=== PATIENT | female | born 1945 | race Caucasian/White ===

== ENCOUNTER → 2019-09-12 13:00 | Outpatient (BNVA) | payer MEDICARE, MEDICAID, SELFPAY | PROVIDERS: Family Provider Family Medicine; PCP Nurse Practitioner Family; Visit Provider Specialist | DX: R41.9 Unspecified symptoms and signs involving cognitive functions and awareness (principal) | CPT/HCPCS: 96116; 99203 ==

== ENCOUNTER → 2019-09-27 13:07 | Outpatient (BNVA) | payer MEDICARE, MEDICAID, SELFPAY | PROVIDERS: Family Provider Family Medicine; PCP Nurse Practitioner Family; Visit Provider Nurse Practitioner | DX: R05 Cough (principal) | CPT/HCPCS: 87804 ==

== ENCOUNTER 2020-02-28 08:11 | Day surgery (SDC) | payer MEDICARE, MEDICAID, SELFPAY ==
[2020-02-27 11:48] VITALS: BMI 31.1
[2020-02-28 08:30] VITALS: BP 145/71; PULSE 70; RESP 20; TEMP 36.5; O2SAT 99
[2020-02-28] MEDS: sodium chloride 0.9% 1,000 ML 30 ML IV (08:53)
--- NOTE | 2020-02-28 09:11 | ANES.PREANE2 ---
Pre-Anesthetic Assessment Pre-Anesthetic Assessment: Height/Weight: Height 1.6 m Weight 79.832 kg Temp Pulse Resp BP Pulse Ox 97.7 F 70 20 H 145/71 99 02/28/20 08:30 02/28/20 08:30 02/28/20 08:30 02/28/20 08:30 02/28/20 08:30 Preop Diagnosis: Screening Proposed Procedure: Operation Date: 02/28/20 09:30 Proposed Procedures p Colonoscopy 98284 Z12.11(Not Applicable) - Adriano Smith MD Familial anesthetic complications: None Was Beta Tia taken within 24 hours: N/A Last intake: Intake Last Liquid Date 02/28/20 Last Liquid Time 07:00 Last Solid Date 02/26/20 Last Solid Time 21:00 Social: Social History: No alcohol and No tobacco Comment: former smoker Exam: Pre-Anes Outpt Exam: alert, oriented x 3, clear to auscultation bilaterally and regular rate & rhythm Airway: Cervical ROM: WNL MP: 3 Dentition: Other (edentulous) Pulmonary: Pulmonary: 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), Orthopnea and SOB CV/HEM: CV/HEM: Afib and HTN Comments: pacer/defibrillator apixaban on thursday : : None reported Hepatic: Hepatic: None reported GI: GI: GERD Metabolic: Metabolic: None reported Musc/skel: Musc/skel: None reported Neuropsych: Neuropsych: None reported Anesthetic Plan: ASA status: 3 Anesthesia: MAC Other: POM mask Risk of > 500 ml blood loss (7ml/kg in children): No Meds/Allergies Current Medications: Current Medications Generic Name Dose Route Start Last Admin Trade Name Freq PRN Reason Stop Dose Admin Sodium Chloride 1,000 mls @ 30 ml s/hr 02/28/20 08:30 02/28/20 08:53 Sodium Chloride 0.9% IV 02/29/20 08:29 30 mls/hr .Q24H GERALDINE Administration PFSH Anesthesia PFSH: Medical History Anxiety Arthritis Atrial fibrillation Chronic anticoagulation COPD (chronic obstructive pulmonary disease) Depression History of pacemaker Hypertension AIDEN (obstructive sleep apnea) Restless leg syndrome Surgical History H/O cardiac radiofrequency ablation H/O: hysterectomy History of tonsillectomy Hx laparoscopic cholecystectomy Family History Other CAD (coronary artery disease) Cancer Diabetes Hypertension Stroke Denies family history of Anesthesia complication Bleeding disorder Social History Smoking and tobacco status: former smoker Quit status (tobacco): has quit using tobacco Year quit tobacco: 1979 Alcohol intake: never Lives independently: Yes Marital status: Single Current occupational status: retired History of recent travel: No Data Anesthesia Cardiac Studies: No Data to Display
--- NOTE | 2020-02-28 09:55 | W.PM.OPSUD ---
Surgery/Procedure H&P Update DATE OF PROCEDURE: February 28, 2020 DATE H&P PERFORMED: 02/20/20 H&P UPDATE INFORMATION: I have reviewed H&P completed within last 30 days, I have examined patient prior to procedure and No changes to prior documentation PREOP DIAGNOSIS: Screening PLANNED PROCEDURE: Operation Date: 02/28/20 09:30 Proposed Procedures p Colonoscopy 37976 Z12.11(Not Applicable) - Adriano Smith MD
[2020-02-28 10:25] VITALS: BP 142/82; PULSE 71; RESP 18; TEMP 36.6; O2SAT 99
[2020-02-28 10:33] VITALS: BP 124/60; PULSE 70; RESP 18; TEMP 36.6; O2SAT 99
== END 2020-02-28 10:54 | disposition home or self-care (01) ==
PROVIDERS: PCP Family Medicine; Visit Provider Surgery
PROC: 0DJD8ZZ Inspection of Lower Intestinal Tract, Via Natural or Artificial Opening Endoscopic (ICD-10-PCS; CPT 45378; principal; 2020-02-28 09:30)
DX: Z12.11 Encounter for screening for malignant neoplasm of colon (principal); K57.30 Diverticulosis of large intestine without perforation or abscess without bleeding; K64.8 Other hemorrhoids; J44.9 Chronic obstructive pulmonary disease, unspecified; Z99.81 Dependence on supplemental oxygen; I48.91 Unspecified atrial fibrillation; I10 Essential (primary) hypertension; K21.9 Gastro-esophageal reflux disease without esophagitis; F41.9 Anxiety disorder, unspecified; M19.90 Unspecified osteoarthritis, unspecified site; G47.33 Obstructive sleep apnea (adult) (pediatric); Z82.49 Family history of ischemic heart disease and other diseases of the circulatory system; Z83.3 Family history of diabetes mellitus; Z87.891 Personal history of nicotine dependence
CPT/HCPCS: 12345; G0121; J7030

== ENCOUNTER → 2020-05-07 11:37 | Outpatient (BNVA) | payer MEDICARE, MEDICAID, SELFPAY | PROVIDERS: PCP Nurse Practitioner Family; Visit Provider Internal Medicine Cardiovascular Disease | DX: N18.9 Chronic kidney disease, unspecified (principal); E78.5 Hyperlipidemia, unspecified; Z79.899 Other long term (current) drug therapy; I42.8 Other cardiomyopathies; R06.02 Shortness of breath; I48.20 Chronic atrial fibrillation, unspecified; Z95.810 Presence of automatic (implantable) cardiac defibrillator; I10 Essential (primary) hypertension | CPT/HCPCS: 80048; 80061; 80076; 84439; 84443 ==

== ENCOUNTER 2021-05-09 11:28 | Emergency (ER) | payer MEDICARE, MEDICAID, SELFPAY ==
--- NOTE | 2021-05-09 11:34 | XR_ITS ---
WS: [id number] Exam: XR chest 1V portable [id number] Date/Time of Exam: 05/09/2021 11:36 AM Reason For Exam: chest pain Comparison 04/22/2019. The lungs are fully expanded and clear. Cardiomediastinal structures are unremarkable for portable te chnique. No pleural effusions. A permanent cardiac pacer superimposes the left chest. Regional bony e lements are intact. XR/XR chest 1V portable [id number] IMPRESSION: 1. No acute cardiopulmonary finding. No change.
[2021-05-09 11:38] VITALS: BP 132/70; PULSE 68; RESP 19; TEMP 37.2; O2SAT 94; BMI 29.2
--- NOTE | 2021-05-09 11:52 | W.ED.GENADLT ---
HPI - General Adult General: Chief complaint: General Medical Stated complaint: CHEST PAINS Time Seen by Provider: 05/09/21 11:46 History of Present Illness: HPI narrative: Patient is a 75-year-old female with class II systolic congestive heart failure. She has a dual-chamber ICD and is followed by a local credit collections manager. She is here with complaints central chest pressure for the last 2 to 3 days. She is also had increased shortness of breath and leg swelling which she has been treating by increased dose of of her diuretics. Pain waxes and wanes in intensity is not correlated to movement does not radiate has not had any diaphoresis or nausea. This morning she did have a sensation like something kicked her in the middle of her chest. She has not previously had an ICD fire on her before. Has had a mild cough the last 2 days. No fevers chills nausea vomiting diarrhea altered mental status rash syncope or headache States she is able to perform her ADLs at home. Does not cook but has somebody cooks for her is able to get go the bathroom eat they have otherwise perform basic ADLs does have home health and family helping her Review of Systems General: Reports: 10 or more systems reviewed and unremarkable except in HPI and below PFSH ED PFSH: Medical History Anxiety Arthritis Atrial fibrillation Chronic anticoagulation Chronic atrial fibrillation COPD (chronic obstructive pulmonary disease) Depression High risk medication use History of pacemaker Hypertension Hypertension, benign essential, age 0-18 ICD (implantable cardioverter-defibrillator), dual, in situ Non-ischemic cardiomyopathy AIDEN (obstructive sleep apnea) Restless leg syndrome Surgical History H/O cardiac radiofrequency ablation H/O: hysterectomy History of tonsillectomy Hx laparoscopic cholecystectomy Status post colonoscopy (02/28/20) diverticulosis Family History Mother CAD (coronary artery disease) Stroke Father CAD (coronary artery disease) Grandmother CAD (coronary artery disease) Cancer Grandfather CAD (coronary artery disease) Brother CAD (coronary artery disease) Sister CAD (coronary artery disease) Daughter CAD (coronary artery disease) Diabetes Cancer Son Diabetes Other Hypertension Denies family history of Clotting disorder Dementia Chronic kidney disease (CKD) Suicide Anesthesia complication Bleeding disorder Lung disease Social History Smoking and tobacco status: former smoker Quit status (tobacco): has quit using tobacco Year quit tobacco: 1979 Alcohol intake: never Lives independently: Yes Marital status: Single Current occupational status: retired History of recent travel: No Physical Exam Const: COMMON NORMALS: no acute distress, average body habitus, patient oriented x3, no limitations, healthy appearing, alert and well nourished ORIENTATION/CONSCIOUSNESS: Yes oriented to person, Yes oriented to place and Yes oriented to time HENMT: COMMON NORMALS: normocephalic, atraumatic, hearing grossly normal bilaterally, external ears normal, EAC's normal, Normal external nose present, Normal nasal mucous membranes and turbinates present, moist oral mucous membranes, oropharynx normal, dentition normal and gingiva normal HEAD & SCALP: normocephalic and atraumatic NOSE: Normal external nose present and Normal nasal mucous membranes and turbinates present EXTERNAL EAR: Yes external ears normal EXTERNAL AUDITORY CANAL: EAC's normal Eye: COMMON NORMALS: Equal, round and reactive pupils present and EOMs intact bilaterally PUPIL: Yes Equal, round and reactive pupils present Neck/C-Spine: COMMON NORMALS: no meningeal signs and no JVD Chest: COMMONS NORMALS: normal inspection of the chest and normal palpation of entire chest wall Resp: COMMON NORMALS: normal respiratory effort, No retractions and clear to auscultation bilaterally AUSCULTATION: clear to auscultation bilaterally Cardio: COMMON NORMALS: no JVD, regular rate, regular rhythm, No murmurs present (Cardio) and Peripheral pulses 2+ throughout RATE: regular rate RHYTHM: regular rhythm PERIPHERAL PULSES: Peripheral pulses 2+ throughout GI: COMMON NORMALS: Normal to inspection, nondistended, normoactive bowel sounds present, Soft to palpation and non-tender INSPECTION: Yes normal to inspection AUSCULTATION: Yes normoactive bowel sounds PALPATION: Yes Soft to palpation Extremity: COMMON NORMALS: normal to inspection, full ROM, capillary refill normal and no pedal edema (1+ pedal edema bilaterally lower extremities) Neuro: COMMON NORMALS: patient oriented x3 and CN's II-XII intact bilaterally SENSORIUM/ORIENTATION: Yes alert, Yes oriented to person, Yes oriented to place and Yes oriented to time MENINGEAL SIGNS: Yes no meningeal signs Psych: COMMON NORMALS: mental status grossly normal and Normal thought process present THOUGHT PROCESS: Normal thought process present Skin: COMMON NORMALS: no rashes or lesions noted, no wounds, turgor normal and no jaundice GENERAL SKIN EXAM: no rashes or lesions noted and turgor normal Course ED course: Patient symptoms are currently very mild. States she only has some mild chest tenderness. EKG did not show any new changes based on comparison to April 2019. Patient is currently stable paced rhythm no need for resuscitation or Transformation Analyst activation at this time Vital Signs: Vital signs: Vital Signs Temperature 98.2 F 05/09/21 13:48 Pulse Rate 72 05/09/21 14:40 Respiratory Rate 20 H 05/09/21 14:40 Blood Pressure 118/54 05/09/21 14:40 Pulse Oximetry 96 05/09/21 14:40 MDM - General Adult MDM Narrative: Medical decision making narrative: Patient is a 75-year-old female with congestive heart failure. 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 Symptoms are mild she has not had any arrhythmias or other concerns about ICD firing. Spoke to her credit collections manager recommend interrogating ICD. If she did have a run of VT increasing her amiodarone to 400mg otherwise keeping. He did agree with keeping her in observation if there is any episodes of shock or ventricular tachyarrhythmia Patient's ICD does not show any arrhythmias or shocks. Initial troponin was 13 so we will need to get a 2-hour delta on her 2-hour troponin did not change. She continues to be essentially asymptomatic. She was very relieved to know that her ICU not fired and her labs were okay. She has very good follow-up with her credit collections manager she is asking to be discharged I think this is appropriate. Symptoms of resolved does not appear to be any change in cardiac labs EKG is unchanged do not think necessarily anything that we would add with an observation stay. I believe she is appropriate for discharge at this time Differential Diagnosis: Differential Diagnosis: ACS, congestive heart failure exacerbation, ICD firing, arrhythmia Lab Data: Labs: Lab Results 05/09/21 05/09/21 05/09/21 12:00 12:00 12:00 WBC 7.3 10^3/uL 10^3/ uL (4.0-10.0) RBC 4.24 10^6/uL 10^6 /uL (4.1-5.3) Hgb 14.3 g/dL g/dL (11.5-15.3) Hct 42.9 % % (37.0-47.0) MCV 101.2 fl H fl (81-99) MCH 33.7 pg pg (28.0-34.0) MCHC 33.3 g/dL g/dL (30.0-36.0) RDW 13.4 % % (12.1-15.1) Plt Count 243 10^3/cmm 10^3 /cmm (130-400) MPV 9.3 fL fL (7.4-10.4) Neut % (Auto) 49.5 % % Lymph % (Auto) 36.4 % % Williamson % (Auto) 10.0 % % Eos % (Auto) 2.9 % % Baso % (Auto) 0.8 % % Neut # (Auto) 3.63 10^3/uL 10^3 /uL (1.8-7.7) Lymph # (Auto) 2.7 10^3/uL 10^3/ uL (0.8-4.8) Williamson # (Auto) 0.7 10^3/uL 10^3/ uL (0.2-0.9) Eos # (Auto) 0.2 10^3/uL 10^3/ uL (0.0-0.8) Baso # (Auto) 0.1 10^3/uL 10^3/ uL (0.0-0.1) Nucleated RBC % (a uto) 0 % % Nucleated RBCs # 0.0 /100WBC /100W BC Sodium Cancelled Potassium Cancelled Chloride Cancelled Carbon Dioxide Cancelled Anion Gap Cancelled BUN Cancelled Creatinine Cancelled GFR Calculation Cancelled Glucose Cancelled Calculated Osmolal ity Cancelled Calcium Cancelled Total Bilirubin Cancelled AST Cancelled ALT Cancelled Alkaline Phosphata se Cancelled Troponin T Baselin e Cancelled Troponin T 120 Min [place] Delta Troponin T NT-Pro-B Natriuret Pep Cancelled Total Protein Cancelled Albumin Cancelled Globulin Cancelled TSH Cancelled 05/09/21 05/09/2121 12:58 12:58 15:14 WBC RBC Hgb Hct MCV MCH MCHC RDW Plt Count MPV Neut % (Auto) Lymph % (Auto) Williamson % (Auto) Eos % (Auto) Baso % (Auto) Neut # (Auto) Lymph # (Auto) Williamson # (Auto) Eos # (Auto) Baso # (Auto) Nucleated RBC % (a uto) Nucleated RBCs # Sodium 139 mmol/L mmol/L (136-145) Potassium 3.6 mmol/L mmol/L (3.5-5.1) Chloride 102 mmol/L mmol/L (98-107) Carbon Dioxide 27 mmol/L mmol/L (22-29) Anion Gap 13.6 (5-19) BUN 14 mg/dL mg/dL (8-23) Creatinine 0.9 mg/dL mg/dL (0.5-0.9) GFR Calculation Not Reportable Glucose 107 mg/dL mg/dL (65-115) Calculated Osmolal ity 289 mOsm/kg mOsm/ kg (285-295) Calcium 9.2 mg/dL mg/dL (8.5-10.5) Total Bilirubin 0.4 mg/dL mg/dL (0.15-1.2) AST 31 U/L U/L (0-32) ALT 21 U/L U/L (0-33) Alkaline Phosphata se 86 IU/L IU/L (35-105) Troponin T Baselin e 13 ng/L H ng/L (0-10) Troponin T 120 Min [place] 12.06 ng/L H ng/L (0-10) Delta Troponin T -0.94 ABS# L ABS# (0-10) NT-Pro-B Natriuret Pep 820 pg/mL H pg/mL (0-125) Total Protein 6.8 g/dL g/dL (6.6-8.7) Albumin 4.0 g/dL g/dL (3.5-5.2) Globulin 2.8 g/dL g/dL (1.3-4.6) TSH EKG Data^: EKG 1: Attestation: I personally reviewed and interpreted this EKG as follows: EKG interpretation date: 05/09/21 EKG interpretation time: 12:19 Prior EKG tracings: available for review Interpretation: Electronic ventricular pacemaker normally paced rhythm rate 70 QRS 177 QTC 517 axis normal no signs of ischemia or infarct. EKG is essentially the same as April and November 2018 Computer generated interpretation: Chest X-Ray 05/09/21 11:34 IMPRESSION: 1. No acute cardiopulmonary finding. No change. Discharge Plan Discharge Patient Disposition: Home Clinical Impression: CHF (congestive heart failure), NYHA class II Qualifiers: Congestive heart failure type: systolic Congestive heart failure chronicity: chronic Qualified Code(s): I50.22 - Chronic systolic (congestive) heart failure Condition: Stable Prescriptions: No Action nitroglycerin 0.4 mg tablet, sublingual 0.4 mg SUBLINGUAL Q5M PRN (Reason: chest pain) 30 Days Qty: 30 RF: 3 Spiriva Respimat 2.5 mcg/actuation mist 2 inh inhalation DAILY@14 RF: 0 diclofenac sodium 1 % gel 2 - 4 g topical BID PRN (Reason: Pain) RF: 0 fluticasone propionate [Flonase Allergy Relief] 50 mcg/actuation spray,suspension 2 spray INTRANASAL QAM RF: 0 gabapentin 400 mg capsule 400 mg PO QID RF: 0 lidocaine 5 % adhesive patch,medicated 1 patch TOPICAL DAILY RF: 0 lovastatin 10 mg tablet 10 mg PO BEDTIME RF: 0 amlodipine [Norvasc] 2.5 mg tablet 2.5 mg PO QAM RF: 0 pantoprazole [Protonix] 40 mg tablet,delayed release (DR/EC) 40 mg PO QAM RF: 0 trazodone 50 mg tablet 50 mg PO BEDTIME RF: 0 tramadol [Ultram] 50 mg tablet 50 mg PO QID PRN (Reason: Pain) RF: 0 hydroxyzine pamoate [Vistaril] 25 mg capsule 25 mg PO Q8H PRN (Reason: Panic Attack(S)) RF: 0 torsemide 10 mg tablet 20 mg PO BID RF: 0 Eliquis 5 mg tablet 5 mg PO BID RF: 0 ropinirole 1 mg tablet 1 mg PO BEDTIME RF: 0 hydrocodone-acetaminophen 5-325 mg tablet 1 tab PO QID PRN (Reason: Pain) RF: 0 Wixela Inhub 500-50 mcg/dose blister with device 1 inh INHALATION BID RF: 0 buspirone 7.5 mg tablet 7.5 mg PO TID RF: 0 montelukast 10 mg tablet 10 mg PO BEDTIME RF: 0 sertraline 50 mg tablet 50 mg PO TID RF: 0 Multivitamins 28 mg iron- 800 mcg Tablet 1 tab PO DAILY RF: 0 melatonin 10 mg Tablet 10 mg PO BEDTIME RF: 0 Vitamin B-12 1 tab PO DAILY RF: 0 amiodarone 200 mg tablet 200 mg PO QAM RF: 0 Discharge Orders: Discharge ED (Routine); Ordered 05/09/21 Ordered By: Kurt Felix Referrals: Ildefonso Javed MD [Primary Care Provider] - Discharge Diet: Advance as tolerated Discharge Activity: Resume usual activity Patient Instructions: Heart Failure (ED), Chest Pain (ED) Coding Level of Care Code 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
[2021-05-09 11:55] VITALS: BP 146/78; PULSE 70; RESP 20; TEMP 36.6; O2SAT 96
[2021-05-09 12:21] VITALS: BP 150/83; PULSE 62; RESP 20; O2SAT 96
[2021-05-09 12:26] LABS: Basophils # 0.1 10^3/uL (0.0-0.1); Basophils % 0.8 %; Eosinophils # 0.2 10^3/uL (0.0-0.8); Eosinophils % 2.9 %; Hematocrit 42.9 % (37.0-47.0); Hemoglobin 14.3 g/dL (11.5-15.3); Lymphocytes # 2.7 10^3/uL (0.8-4.8); Lymphocytes % 36.4 %; Mean Corpuscular HGB Conc 33.3 g/dL (30.0-36.0); Mean Corpuscular Hemoglobin 33.7 pg (28.0-34.0); Mean Corpuscular Volume 101.2 fl (81-99); Mean Platelet Volume 9.3 fL (7.4-10.4); Monocytes # 0.7 10^3/uL (0.2-0.9); Neutrophils # 3.63 10^3/uL (1.8-7.7); Neutrophils % 49.5 %; Nucleated Red Blood Cells % 0 %; Platelet Count 243 10^3/cmm (130-400); Red Blood Count 4.24 10^6/uL (4.1-5.3); Red Cell Distribution Width 13.4 % (12.1-15.1); White Blood Count 7.3 10^3/uL (4.0-10.0)
[2021-05-09 13:48] VITALS: BP 142/47; PULSE 70; RESP 20; TEMP 36.8; O2SAT 96
[2021-05-09 13:53] LABS: Troponin(5th) Baseline 13 ng/L (0-10)
[2021-05-09 14:02] LABS: Alanine Aminotransferase 21 U/L (0-33); Alkaline Phosphatase 86 IU/L (35-105); Anion Gap 13.6 (5-19); Aspartate Amino Transferase 31 U/L (0-32); Blood Urea Nitrogen 14 mg/dL (8-23); Calcium 9.2 mg/dL (8.5-10.5); Carbon Dioxide 27 mmol/L (22-29); Chloride 102 mmol/L (98-107); Globulin 2.8 g/dL (1.3-4.6); Glucose 107 mg/dL (65-115); NT Pro B Type Natriuretic Pept 820 pg/mL (0-125); Osmolality Calculated 289 mOsm/kg (285-295); Potassium 3.6 mmol/L (3.5-5.1); Sodium 139 mmol/L (136-145); Total Bilirubin 0.4 mg/dL (0.15-1.2); Total Protein 6.8 g/dL (6.6-8.7)
[2021-05-09 14:40] VITALS: BP 118/54; PULSE 72; RESP 20; O2SAT 96
[2021-05-09 16:38] LABS: Troponin 5 2HR 12.06 ng/L (0-10); Troponin 5 2HR Delta -0.94 ABS# (0-10)
--- NOTE | 2021-05-09 16:46 | PC.PHAR ---
pt states she takes care of her own medications-rx filled on 05/09/21 90d/s for torsemide 20mg po daily prn-pt states she has been taking 20mg bid-
[2021-05-09 17:14] VITALS: BP 127/69; PULSE 70; RESP 18; TEMP 36.7; O2SAT 96
--- NOTE | 2021-05-09 17:34 | ECG_ITS ---
[facility] Test Date: 2021-05-09 Pat Name: Meryl Baldwin Department: Room: Gender: Female Head Of Housekeeping: : 1945 Requested By: Karla Piper Order Number: [id number] Saritha MD: Gaby Perez M.D. Measurements Intervals [place] Rate: 70 P: NC: QRS: 203 QRSD: 177 T: 53 QT: 497 QTc: 536 Interpretive Statements ELECTRONIC VENTRICULAR PACEMAKER ABNORMAL RHYTHM ECG Compared to ECG 04/22/2019 13:47:57 No significant changes Electronically Signed On 05-10-2021 7:06:44 CDT by Gaby Perez M.D. [id number]
== END 2021-05-09 17:38 | disposition home or self-care (01) ==
PROVIDERS: Physician Assistant; Emergency Provider Family Medicine; PCP Family Medicine
DX: I11.0 Hypertensive heart disease with heart failure (principal); I50.22 Chronic systolic (congestive) heart failure; Z79.01 Long term (current) use of anticoagulants; J44.9 Chronic obstructive pulmonary disease, unspecified; Z95.0 Presence of cardiac pacemaker; Z87.891 Personal history of nicotine dependence
CPT/HCPCS: 36415; 71045; 80053; 83880; 84484; 85025; 93005; 99283

== ENCOUNTER → 2021-05-23 11:32 | Outpatient (BNVA) | payer MEDICAID, SELFPAY | PROVIDERS: PCP Family Medicine; Visit Provider Internal Medicine Cardiovascular Disease | DX: I50.33 Acute on chronic diastolic (congestive) heart failure (principal); R06.02 Shortness of breath; R06.00 Dyspnea, unspecified; I10 Essential (primary) hypertension | CPT/HCPCS: 80048; 83880 ==

== ENCOUNTER 2021-07-18 20:22 | Emergency (ER) | payer MEDICARE, MEDICAID, SELFPAY ==
[2021-07-18 20:28] VITALS: BP 139/70; PULSE 70; RESP 22; TEMP 36.8; O2SAT 97; BMI 31.8
--- NOTE | 2021-07-18 22:27 | ED_ITS ---
HPI - General Adult General: Chief complaint: General Medical Stated complaint: Allergic Reaction\Face Swelling Throat Closing Time Seen by Provider: 07/18/21 22:17 PFSH ED PFSH: Medical History Anxiety Arthritis Atrial fibrillation Chronic anticoagulation Chronic atrial fibrillation COPD (chronic obstructive pulmonary disease) Depression High risk medication use History of pacemaker Hypertension Hypertension, benign essential, age 0-18 ICD (implantable cardioverter-defibrillator), dual, in situ Non-ischemic cardiomyopathy AIDEN (obstructive sleep apnea) Restless leg syndrome Surgical History H/O cardiac radiofrequency ablation H/O: hysterectomy History of tonsillectomy Hx laparoscopic cholecystectomy Status post colonoscopy (02/28/20) diverticulosis Family History Mother CAD (coronary artery disease) Stroke Father CAD (coronary artery disease) Grandmother CAD (coronary artery disease) Cancer Grandfather CAD (coronary artery disease) Brother CAD (coronary artery disease) Sister CAD (coronary artery disease) Daughter CAD (coronary artery disease) Diabetes Cancer Son Diabetes Other Hypertension Denies family history of Clotting disorder Dementia Chronic kidney disease (CKD) Suicide Anesthesia complication Bleeding disorder Lung disease Social History Quit status (tobacco): has quit using tobacco Year quit tobacco: 1979 Alcohol intake: never Lives independently: Yes Marital status: Single Current occupational status: retired History of recent travel: No Course Vital Signs: Vital signs: Vital Signs Temperature 98.2 F 07/18/21 20:28 Pulse Rate 70 07/18/21 20:28 Respiratory Rate 22 H 07/18/21 20:28 Blood Pressure 139/70 07/18/21 20:28 Pulse Oximetry 97 07/18/21 20:28 Discharge Plan Discharge Prescriptions: No Action nitroglycerin 0.4 mg tablet, sublingual 0.4 mg SUBLINGUAL Q5M PRN (Reason: chest pain) 30 Days Qty: 30 RF: 3 diclofenac sodium 1 % gel 2 - 4 g topical BID PRN (Reason: Pain) RF: 0 Spiriva with HandiHaler 18 mcg capsule, w/inhalation device 1 cap inhalation DAILY RF: 0 fluticasone propionate [Flonase Allergy Relief] 50 mcg/actuation spray,suspen flavio 2 spray INTRANASAL QAM RF: 0 gabapentin 400 mg capsule 400 mg PO QID RF: 0 lidocaine 5 % adhesive patch,medicated 1 patch TOPICAL DAILY RF: 0 lovastatin 10 mg tablet 10 mg PO BEDTIME RF: 0 amlodipine [Norvasc] 2.5 mg tablet 2.5 mg PO QAM RF: 0 pantoprazole [Protonix] 40 mg tablet,delayed release (DR/EC) 40 mg PO QAM RF: 0 trazodone 50 mg tablet 50 mg PO BEDTIME RF: 0 tramadol [Ultram] 50 mg tablet 50 mg PO QID PRN (Reason: Pain) RF: 0 hydroxyzine pamoate [Vistaril] 25 mg capsule 25 mg PO Q8H PRN (Reason: Panic Attack(S)) RF: 0 torsemide 10 mg tablet 20 mg PO BID RF: 0 Eliquis 5 mg tablet 5 mg PO BID RF: 0 amiodarone 200 mg tablet 200 mg PO QAM Qty: 90 RF: 3 ropinirole 1 mg tablet 1 mg PO BEDTIME RF: 0 hydrocodone-acetaminophen 5-325 mg tablet 1 tab PO QID PRN (Reason: Pain) RF: 0 Wixela Inhub 500-50 mcg/dose blister with device 1 inh INHALATION BID RF: 0 buspirone 7.5 mg tablet 7.5 mg PO TID RF: 0 montelukast 10 mg tablet 10 mg PO BEDTIME RF: 0 sertraline 50 mg tablet 50 mg PO TID RF: 0 Multivitamins 28 mg iron- 800 mcg Tablet 1 tab PO DAILY RF: 0 melatonin 10 mg Tablet 10 mg PO BEDTIME RF: 0 Vitamin B-12 1 tab PO DAILY RF: 0 Coding Level of Care Code ED Payroll Master for Nito Rizvi
--- NOTE | 2021-07-18 22:38 | W.ED.GENADLT ---
HPI - General Adult General: Chief complaint: General Medical Stated complaint: Allergic Reaction\Face Swelling Throat Closing Time Seen by Provider: 07/18/21 22:17 Source: patient Mode of arrival: ambulatory Limitations: no limitations History of Present Illness: HPI narrative: 75-year-old female states she was eating earlier today roughly 6:00 was having some jaw pain and swelling in the left outer portion of her jaw she states she was concerned with the swelling but since is resolved she has no pain currently denies any difficulty swallowing denies any rash denies any vomiting or diarrhea denies any shortness of breath. Associated symptoms: Deny chest pain, dyspnea, headache(s), nausea, rash or vomiting Review of Systems Const: Denies: fever(s), chills, body aches or change in appetite Eyes: Denies: blurry vision or eye discomfort ENMT: Reports: mouth pain Card: Denies: chest pain Resp: Denies: dyspnea GI: Denies: abdominal pain, nausea, vomiting or diarrhea : Denies: dysuria Musc: Denies: neck pain or back pain Skin/Breast: Denies: rash Neuro: Denies: headache(s) Psych: Denies: depression Ruben/Lymph: Denies: easy bruising All/Imm: Denies: urticaria PFSH ED PFSH: Medical History Anxiety Arthritis Atrial fibrillation Chronic anticoagulation Chronic atrial fibrillation COPD (chronic obstructive pulmonary disease) Depression High risk medication use History of pacemaker Hypertension Hypertension, benign essential, age 0-18 ICD (implantable cardioverter-defibrillator), dual, in situ Non-ischemic cardiomyopathy AIDEN (obstructive sleep apnea) Restless leg syndrome Surgical History H/O cardiac radiofrequency ablation H/O: hysterectomy History of tonsillectomy Hx laparoscopic cholecystectomy Status post colonoscopy (02/28/20) diverticulosis Family History Mother CAD (coronary artery disease) Stroke Father CAD (coronary artery disease) Grandmother CAD (coronary artery disease) Cancer Grandfather CAD (coronary artery disease) Brother CAD (coronary artery disease) Sister CAD (coronary artery disease) Daughter CAD (coronary artery disease) Diabetes Cancer Son Diabetes Other Hypertension Denies family history of Clotting disorder Dementia Chronic kidney disease (CKD) Suicide Anesthesia complication Bleeding disorder Lung disease Social History Quit status (tobacco): has quit using tobacco Year quit tobacco: 1979 Alcohol intake: never Lives independently: Yes Marital status: Single Current occupational status: retired History of recent travel: No Physical Exam Const: COMMON NORMALS: no acute distress, patient oriented x3 and healthy appearing HENMT: COMMON NORMALS: normocephalic and atraumatic HEAD & SCALP: normocephalic and atraumatic OTHER: No abscess noted in the mouth no swelling of the throat has some tenderness over left mandible and parotid no obvious mass Eye: COMMON NORMALS: Equal, round and reactive pupils present and EOMs intact bilaterally PUPIL: Yes Equal, round and reactive pupils present Neck/C-Spine: COMMON NORMALS: full ROM and supple Chest: COMMONS NORMALS: normal inspection of the chest and normal palpation of entire chest wall Resp: COMMON NORMALS: normal respiratory effort, No retractions, No use of accessory muscles and clear to auscultation bilaterally AUSCULTATION: clear to auscultation bilaterally Cardio: COMMON NORMALS: regular rate, regular rhythm and No murmurs present (Cardio) RATE: regular rate RHYTHM: regular rhythm GI: COMMON NORMALS: Normal to inspection, nondistended, normoactive bowel sounds present, Soft to palpation, non-tender and no masses PALPATION: Yes Soft to palpation Extremity: COMMON NORMALS: normal to inspection and full ROM Neuro: COMMON NORMALS: patient oriented x3, moves all extremities and no focal motor deficits Psych: COMMON NORMALS: mental status grossly normal, Normal thought process present and cooperative THOUGHT PROCESS: Normal thought process present Skin: COMMON NORMALS: no rashes or lesions noted and no wounds GENERAL SKIN EXAM: no rashes or lesions noted Course Vital Signs: Vital signs: Vital Signs Temperature 98.2 F 07/18/21 20:28 Pulse Rate 70 07/18/21 20:28 Respiratory Rate 22 H 07/18/21 20:28 Blood Pressure 139/70 07/18/21 20:28 Pulse Oximetry 97 07/18/21 20:28 MDM - General Adult MDM Narrative: Medical decision making narrative: Patient presents here with left-sided jaw pain is since resolved as of some slight tender area over her parotid gland with may be some inflammation she is to eat a soft diet and is to suck on sour candies she is to follow-up with PCP and return if worsening she has no throat swelling no signs of acute allergic reaction or abscess. Discharge Plan Discharge Patient Disposition: Home Clinical Impression: Jaw pain Condition: Stable Prescriptions: No Action nitroglycerin 0.4 mg tablet, sublingual 0.4 mg SUBLINGUAL Q5M PRN (Reason: chest pain) 30 Days Qty: 30 RF: 3 diclofenac sodium 1 % gel 2 - 4 g topical BID PRN (Reason: Pain) RF: 0 Spiriva with HandiHaler 18 mcg capsule, w/inhalation device 1 cap inhalation DAILY RF: 0 fluticasone propionate [Flonase Allergy Relief] 50 mcg/actuation spray,suspension 2 spray INTRANASAL QAM RF: 0 gabapentin 400 mg capsule 400 mg PO QID RF: 0 lidocaine 5 % adhesive patch,medicated 1 patch TOPICAL DAILY RF: 0 lovastatin 10 mg tablet 10 mg PO BEDTIME RF: 0 amlodipine [Norvasc] 2.5 mg tablet 2.5 mg PO QAM RF: 0 pantoprazole [Protonix] 40 mg tablet,delayed release (DR/EC) 40 mg PO QAM RF: 0 trazodone 50 mg tablet 50 mg PO BEDTIME RF: 0 tramadol [Ultram] 50 mg tablet 50 mg PO QID PRN (Reason: Pain) RF: 0 hydroxyzine pamoate [Vistaril] 25 mg capsule 25 mg PO Q8H PRN (Reason: Panic Attack(S)) RF: 0 torsemide 10 mg tablet 20 mg PO BID RF: 0 Eliquis 5 mg tablet 5 mg PO BID RF: 0 amiodarone 200 mg tablet 200 mg PO QAM Qty: 90 RF: 3 ropinirole 1 mg tablet 1 mg PO BEDTIME RF: 0 hydrocodone-acetaminophen 5-325 mg tablet 1 tab PO QID PRN (Reason: Pain) RF: 0 Wixela Inhub 500-50 mcg/dose blister with device 1 inh INHALATION BID RF: 0 buspirone 7.5 mg tablet 7.5 mg PO TID RF: 0 montelukast 10 mg tablet 10 mg PO BEDTIME RF: 0 sertraline 50 mg tablet 50 mg PO TID RF: 0 Multivitamins 28 mg iron- 800 mcg Tablet 1 tab PO DAILY RF: 0 melatonin 10 mg Tablet 10 mg PO BEDTIME RF: 0 Vitamin B-12 1 tab PO DAILY RF: 0 Discharge Orders: Discharge ED (Routine); Ordered 07/18/21 Ordered By: Tania Peterson Referrals: Ildefonso Javed MD [Primary Care Provider] - Discharge Diet: Advance as tolerated Discharge Activity: Resume usual activity Patient Instructions: Sialoadenitis (ED) Coding Level of Care Code ED 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
[2021-07-18 22:39] VITALS: PULSE 70; RESP 20; O2SAT 97
== END 2021-07-18 22:39 | disposition home or self-care (01) ==
PROVIDERS: Emergency Provider Emergency Medicine; PCP Family Medicine
DX: R68.84 Jaw pain (principal); J44.9 Chronic obstructive pulmonary disease, unspecified; Z95.0 Presence of cardiac pacemaker; I10 Essential (primary) hypertension; Z87.891 Personal history of nicotine dependence
CPT/HCPCS: 99282

== ENCOUNTER 2021-07-24 14:26 | Outpatient (CLI) | payer MEDICARE, MEDICAID, SELFPAY ==
--- NOTE | 2021-07-24 15:00 | USCV_ITS ---
Meryl Baldwin Age: 75 Gender: F : 1945 Exam Date: 07/24/2021 15:06 Ordering Phys: Tex Grigsby MD ([email or web address]) Technologist: PATRICIA [place] [facility] [place]ication: DYSPNEA BP: 120 / 62 HR: 70 Rhythm: Sinus Technical Quality: Adequate MEASUREMENTS (Male / Female) Normal Values 2D ECHO LV Diastolic Diameter PLAX 5.9 cm 4.2 - 5.9 / 3.9 - 5.3 cm LV Systolic Diameter PLAX 4.3 cm IVS Diastolic Thickness 1.1 cm 0.6 - 1.0 / 0.6 - 0.9 cm IVS Systolic Thickness 1.6 cm LVPW Diastolic Thickness 1.1 cm 0.6 - 1.0 / 0.6 - 0.9 cm LVPW Systolic Thickness 1.2 cm RV Chamber Size 3.9 cm LVOT Diameter 2.0 cm LV Ejection Fraction 2D Teich 53.5 % LV Ejection Fraction MOD 2C 43.3 % LV Ejection Fraction 2C AL 47.4 % LA Diameter 3.6 cm LA Width 4.3 cm LA Height 4.7 cm RA Width 4.0 cm RA Height 4.3 cm Aorta at Sinotubular Diameter 2.3 cm M-MODE Aortic Annulus Diameter 3.4 cm LA Ao Ratio MM 1.2 MV E Point Septal Separation 1.9 cm DOPPLER AV Peak Velocity 121.0 cm/s LVOT Peak Velocity 97.0 cm/s AV Area Cont Eq vti 2.4 cm squared AV Area Cont Eq pk 2.5 cm squared MV Peak Velocity 149.0 cm/s MV Area PHT 12.2 cm squared MV E' Velocity 70.5 cm/s Mitral E to MV E' Ratio 9.7 Mitral E to LV E' Lateral Ratio 9.9 Mitral E to LV E' Septal Ratio 9.6 TR Peak Velocity 243.5 cm/s TR Peak Gradient 23.7 mmHg TR Mean Velocity 187.8 cm/s TR Mean Gradient 15.7 mmHg TR Velocity Time Integral 71.8 cm TV Peak E Velocity 91.0 cm/s Right Atrial Pressure 3.0 mmHg Pulmonary Artery Systolic Pressu 26.7 mmHg PV Peak Velocity 69.0 cm/s RV Acceleration Time 0.1 s RV Ejection Time 0.3 s RV AcT/ET 0.3 FINDINGS Left Ventricle Normal LV size with diminished ejection fraction of 43%. Diffuse hypokinesia of the septum and inferolateral wall segments Right Ventricle Catheter/pacemaker wire in the right ventricular cavity. Right Atrium Catheter/pacemaker wire in the right atrial cavity. Mildly increased right atrial size. Left Atrium Mildly increased left atrial size. Mitral Valve Thickened mitral valve. Mild-moderate mitral valve regurgitation. Aortic Valve Thickened aortic valve. Mild aortic valve regurgitation. Tricuspid Valve Xzio-[id number]-[id number] tricuspid valve regurgitation. Pulmonic Valve Pulmonic valve not well visualized. Pericardium No pericardial effusion. Aorta Normal aortic annulus size. CONCLUSIONS Normal LV size with diminished ejection fraction of 43%. Diffuse hypokinesia of the septum and inferolateral wall segments. Mild biatrial enlargement Thickened aortic valve. Mild aortic valve regurgitation. Thickened mitral valve. Mild-moderate mitral valve regurgitation. Yuzj-ut-[id number] tricuspid valve regurgitation. Estimated pulmonary artery peak systolic pressure 27 mmHg Pacemaker/defibrillator wire in the right atrium and right ventricle. There is no pericardial effusion. Compared to the study from 04/01/2018, there may not be a significant change Dr Tex Grigsby MD [facility] (Electronically Signed) Final Date: 26 July 2021 00:20 S
== END 2021-07-24 14:27 | disposition home or self-care (01) ==
PROVIDERS: PCP Family Medicine; Visit Provider Internal Medicine Cardiovascular Disease
DX: I50.22 Chronic systolic (congestive) heart failure (principal); R06.00 Dyspnea, unspecified; I08.3 Combined rheumatic disorders of mitral, aortic and tricuspid valves; Z95.0 Presence of cardiac pacemaker
CPT/HCPCS: 93306

== ENCOUNTER 2021-07-31 18:19 | Emergency (ER) | payer MEDICARE, MEDICAID, SELFPAY ==
[2021-07-31 18:34] VITALS: BP 134/69; PULSE 70; RESP 16; TEMP 36.8; O2SAT 99; BMI 32.8
--- NOTE | 2021-07-31 19:03 | ECG_ITS ---
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 Measurements Intervals [place] Rate: 70 P: RI: QRS: 213 QRSD: 184 T: 64 QT: 487 QTc: 526 Interpretive Statements ELECTRONIC VENTRICULAR PACEMAKER Compared to ECG 05/09/2021 11:35:51 No significant changes Electronically Signed On 08-01-2021 8:46:01 WATER HAULER by Gregg Blanco M.D. [id number] f
--- NOTE | 2021-07-31 19:03 | USR_ITS ---
PROCEDURE INFORMATION: Exam: US Duplex Left Lower Extremity Veins, Limited Exam date and time: 07/31/2021 7:03 PM Age: 75 years old Clinical indication: Pain; Leg, lower; Left; Additional info: Swelling TECHNIQUE: Imaging protocol: Real-time Duplex ultrasound of the Left Lower Extremity with 2-D ramirez scale, color Doppler flow and spectral waveform analysis with image documentation. Limited exam focused on the left lower extremity veins. COMPARISON: US Renal Kidney Structu* [id number] 07/21/2018 4:25 PM FINDINGS: Left deep veins: Unremarkable. The common femoral, femoral, proximal profunda femoral and popliteal veins are patent without thrombus. Normal Doppler waveforms. Normal compressibility and/or augmentation response. Left superficial veins: Unremarkable. Saphenofemoral junction is patent without thrombus. Soft tissues: Unremarkable. US/CV venous duplex [facility] [id number] IMPRESSION: No evidence of deep vein thrombosis.
--- NOTE | 2021-07-31 19:03 | XRR_ITS ---
PROCEDURE INFORMATION: Exam: XR Chest Exam date and time: 07/31/2021 7:03 PM Age: 75 years old Clinical indication: Shortness of breath; Additional info: SOB TECHNIQUE: Imaging protocol: XR of the chest. Views: 1 view. COMPARISON: CR XR chest 1V portable [id number] 05/09/2021 11:40 AM FINDINGS: Tubes, catheters and devices: Permanent pacemaker/defibrillator device in place. Lungs: Unremarkable. No consolidation. Pleural spaces: Unremarkable. No pleural effusion. No pneumothorax. Heart/Mediastinum: No cardiomegaly. Bones/joints: No acute findings. XR/XR chest 1V portable [id number] IMPRESSION: No acute findings.
--- NOTE | 2021-07-31 19:24 | W.ED.SOB ---
HPI - SOB/Dyspnea General: Chief Complaint: Shortness of Breath/Dyspnea Stated Complaint: SOB FOR 2 DAYS Time Seen by Provider: 07/31/21 18:58 Source: patient Mode of arrival: ambulatory Limitations: no limitations History of Present Illness: HPI Narrative: 75-year-old female has a long history of COPD states that over the last 3 days she has had an increasing cough and some increasing shortness of breath. Patient is in no distress here speaking full sentences pulse ox is 90% on 3 L and she is on 3 L at home she denies any fever denies any worsening proving factors denies any vomiting or diarrhea. Associated symptoms: Deny abdominal pain, chest pain, fever(s), nausea or vomiting Review of Systems Const: Denies: fever(s), chills, body aches or change in appetite Eyes: Denies: blurry vision or eye discomfort ENMT: Denies: throat pain or dental pain Card: Denies: chest pain Resp: Reports: dyspnea, non-productive cough and wheezing GI: Denies: abdominal pain, nausea, vomiting or diarrhea : Denies: dysuria Musc: Denies: neck pain or back pain Skin/Breast: Denies: rash Neuro: Denies: headache(s) Psych: Denies: depression Ruben/Lymph: Denies: easy bruising All/Imm: Denies: urticaria PFSH ED PFSH: Medical History Anxiety Arthritis Atrial fibrillation Chronic anticoagulation Chronic atrial fibrillation COPD (chronic obstructive pulmonary disease) Depression High risk medication use History of pacemaker Hypertension Hypertension, benign essential, age 0-18 ICD (implantable cardioverter-defibrillator), dual, in situ Non-ischemic cardiomyopathy AIDEN (obstructive sleep apnea) Restless leg syndrome Surgical History H/O cardiac radiofrequency ablation H/O: hysterectomy History of tonsillectomy Hx laparoscopic cholecystectomy Status post colonoscopy (02/28/20) diverticulosis Family History Mother CAD (coronary artery disease) Stroke Father CAD (coronary artery disease) Grandmother CAD (coronary artery disease) Cancer Grandfather CAD (coronary artery disease) Brother CAD (coronary artery disease) Sister CAD (coronary artery disease) Daughter CAD (coronary artery disease) Diabetes Cancer Son Diabetes Other Hypertension Denies family history of Clotting disorder Dementia Chronic kidney disease (CKD) Suicide Anesthesia complication Bleeding disorder Lung disease Social History Quit status (tobacco): has quit using tobacco Year quit tobacco: 1979 Alcohol intake: never Lives independently: Yes Marital status: Single Current occupational status: retired History of recent travel: No Physical Exam Const: COMMON NORMALS: no acute distress, patient oriented x3 and healthy appearing HENMT: COMMON NORMALS: normocephalic and atraumatic HEAD & SCALP: normocephalic and atraumatic Eye: COMMON NORMALS: Equal, round and reactive pupils present and EOMs intact bilaterally PUPIL: Yes Equal, round and reactive pupils present Neck/C-Spine: COMMON NORMALS: full ROM and supple Chest: COMMONS NORMALS: normal inspection of the chest and normal palpation of entire chest wall Resp: COMMON NORMALS: normal respiratory effort, No retractions and No use of accessory muscles AUSCULTATION: wheezes Cardio: COMMON NORMALS: regular rate, regular rhythm and No murmurs present (Cardio) RATE: regular rate RHYTHM: regular rhythm GI: COMMON NORMALS: Normal to inspection, nondistended, normoactive bowel sounds present, Soft to palpation, non-tender and no masses PALPATION: Yes Soft to palpation Extremity: COMMON NORMALS: normal to inspection and full ROM Neuro: COMMON NORMALS: patient oriented x3, moves all extremities and no focal motor deficits Psych: COMMON NORMALS: mental status grossly normal, Normal thought process present and cooperative THOUGHT PROCESS: Normal thought process present Skin: COMMON NORMALS: no rashes or lesions noted and no wounds GENERAL SKIN EXAM: no rashes or lesions noted Course Vital Signs: Vital signs: Vital Signs Temperature 98.3 F 07/31/21 18:34 Pulse Rate 70 07/31/21 21:35 Respiratory Rate 19 H 07/31/21 21:35 Blood Pressure 142/67 07/31/21 21:35 Pulse Oximetry 95 07/31/21 21:35 MDM - SOB/Dyspnea MDM Narrative: Medical decision making narrative: Patient presents here with dyspnea is improved here she is not required any extra oxygen has not been any distress patient's blood work is normal except for slightly elevated BNP will give her 1 dose of IV Lasix no signs of pneumonia Covid negative she is continue to breathing treatments at home follow-up with PCP in 2 to 4 days return if worsening she understands agrees to plan. Lab Data: Labs: Lab Results 07/31/21 07/31/21 07/31/21 20:09 20:20 20:20 WBC 6.5 10^3/uL 10^3/ uL (4.0-10.0) RBC 3.80 10^6/uL L 10 ^6/uL (4.1-5.3) Hgb 12.6 g/dL g/dL (11.5-15.3) Hct 38.6 % % (37.0-47.0) MCV 101.6 fl H fl (81-99) MCH 33.2 pg pg (28.0-34.0) MCHC 32.6 g/dL g/dL (30.0-36.0) RDW 13.6 % % (12.1-15.1) Plt Count 228 10^3/cmm 10^3 /cmm (130-400) MPV 9.0 fL fL (7.4-10.4) Neut % (Auto) 46.2 % % Lymph % (Auto) 41.0 % % [place] % (Auto) 7.7 % % Eos % (Auto) 4.1 % % Baso % (Auto) 0.8 % % Neut # (Auto) 3.02 10^3/uL 10^3 /uL (1.8-7.7) Lymph # (Auto) 2.7 10^3/uL 10^3/ uL (0.8-4.8) [place] # (Auto) 0.5 10^3/uL 10^3/ uL (0.2-0.9) Eos # (Auto) 0.3 10^3/uL 10^3/ uL (0.0-0.8) Baso # (Auto) 0.1 10^3/uL 10^3/ uL (0.0-0.1) Nucleated RBC % (a uto) 0 % % Nucleated RBCs # 0.0 /100WBC /100W BC Specimen Type Sample Site ABG pH ABG pCO2 ABG pO2 ABG HCO3 ABG Base Excess Kip Test Hematocrit Hgb O2 Saturation Carboxyhemoglobin Methemoglobin Total Hemoglobin O2 Delivery Device FiO2 Entertainment Lawyer ID Sodium 133 mmol/L L mmol /L (136-145) Potassium 4.1 mmol/L mmol/L (3.5-5.1) Chloride 97 mmol/L L mmol/ L (98-107) Carbon Dioxide 21 mmol/L L mmol/ L (22-29) Anion Gap 19.1 H (5-19) BUN 26 mg/dL H mg/dL (8-23) Creatinine 1.1 mg/dL H mg/dL (0.5-0.9) GFR Calculation Not Reportable Glucose 96 mg/dL mg/dL (65-115) Calculated Osmolal ity 281 mOsm/kg L mOs m/kg (285-295) Calcium 8.8 mg/dL mg/dL (8.5-10.5) Total Bilirubin 0.4 mg/dL mg/dL (0.15-1.2) AST 31 U/L U/L (0-32) ALT 23 U/L U/L (0-33) Alkaline Phosphata se 87 IU/L IU/L (35-105) NT-Pro-B Natriuret Pep 1449 pg/mL H pg/m L (0-125) Total Protein 7.5 g/dL g/dL (6.6-8.7) Albumin 4.5 g/dL g/dL (3.5-5.2) Globulin 3.0 g/dL g/dL (1.3-4.6) Urine Color Yellow (Yellow) Urine Appearance Clear (CLEAR) Urine pH 5 (5-7) Ur Specific Gravit y 1.020 (1.005-1.030) Urine Protein Neg (Negative) Urine Glucose (UA) Norm (Normal) Urine Ketones Negative (Negative) Urine Blood 2+ H (Negative) Urine Nitrate Negative (Negative) Urine Bilirubin Neg (Negative) Urine Urobilinogen Neg mg/dL mg/dL (Negative) Ur Leukocyte Soraya ase Negative (Negative) Urine RBC 0-4 /hpf H /hpf (0-2) Urine WBC None /hpf /hpf (0-5) Ur Squamous Epith Cells None /hpf /hpf (0-5) Amorphous Sediment Not Reportable Urine Bacteria None /hpf /hpf (NONE) SARS-CoV-2 Ag (Rap id) 07/31/21 07/31/21 20:20 20:35 WBC RBC Hgb Hct MCV MCH MCHC RDW Plt Count MPV Neut % (Auto) Lymph % (Auto) [place] % (Auto) Eos % (Auto) Baso % (Auto) Neut # (Auto) Lymph # (Auto) [place] # (Auto) Eos # (Auto) Baso # (Auto) Nucleated RBC % (a uto) Nucleated RBCs # Specimen Type Arterial Sample Site Brachial, right ABG pH 7.39 (7.35-7.45) ABG pCO2 41.8 mmHg mmHg (35-45) ABG pO2 77.1 mmHg L mmHg (80.0-100.0) ABG HCO3 25.3 mmol/L mmol/ L (22-26) ABG Base Excess 0.2 mmol/L mmol/L (-2.0-2.0) Kip Test Pos Hematocrit 36.0 % L % (37-47) Hgb O2 Saturation 98.5 % % (95-100) Carboxyhemoglobin 0.2 %THgb L %THgb (0.4-20.1) Methemoglobin < 0.0 % L % (0.4-1.5) Total Hemoglobin 11.7 g/dL L g/dL (12-16) O2 Delivery Device Nc FiO2 3.0 % % Entertainment Lawyer ID Buttr Sodium Potassium Chloride Carbon Dioxide Anion Gap BUN Creatinine GFR Calculation Glucose Calculated Osmolal ity Calcium Total Bilirubin AST ALT Alkaline Phosphata se NT-Pro-B Natriuret Pep Total Protein Albumin Globulin Urine Color Urine Appearance Urine pH Ur Specific Gravit y Urine Protein Urine Glucose (UA) Urine Ketones Urine Blood Urine Nitrate Urine Bilirubin Urine Urobilinogen Ur Leukocyte Soraya ase Urine RBC Urine WBC Ur Squamous Epith Cells Amorphous Sediment Urine Bacteria SARS-CoV-2 Ag (Rap id) Negative (Negative) Imaging Data^: CXR: Attestation: I personally reviewed and interpreted this imaging study as follows: Radiologist's impression: [address] [address] XRay Report Signed Patient: Meryl Baldwin Unit #: [id number] : 1945 Age/Sex: 75 / F ADM Date: 07/31/21 Loc: ER Room/Bed: Attending Dr: Ordering Provider/Ordering MD: Tania Peterson MD Date of Service: 07/31/21 Procedure(s): XR chest 1V portable [id number] Accession Number(s): [id number] Report Number: [id number] PROCEDURE INFORMATION: Exam: XR Chest Exam date and time: 07/31/2021 7:03 PM Age: 75 years old Clinical indication: Shortness of breath; Additional info: SOB TECHNIQUE: Imaging protocol: XR of the chest. Views: 1 view. COMPARISON: CR XR chest 1V portable [id number] 05/09/2021 11:40 AM FINDINGS: Tubes, catheters and devices: Permanent pacemaker/defibrillator device in place. Lungs: Unremarkable. No consolidation. Pleural spaces: Unremarkable. No pleural effusion. No pneumothorax. Heart/Mediastinum: No cardiomegaly. Bones/joints: No acute findings. XR/XR chest 1V portable [id number] IMPRESSION: No acute findings. Dictated By: Raciel Ward MD Signed By: Raciel Ward MD Signed Date/Time: 07/31/212056 DD/ 02 EKG Data^: EKG 1: Attestation: I personally reviewed and interpreted this EKG as follows: EKG Interpretation Date: 07/31/21 EKG interpretation time: 19:06 Interpretation: paced hr [address] or t wave abnormalities qrs 184 qtc 507 Discharge Plan Discharge Patient Disposition: Home Clinical Impression: COPD exacerbation, Chronic atrial fibrillation Condition: Stable Prescriptions: No Action nitroglycerin 0.4 mg tablet, sublingual 0.4 mg SUBLINGUAL Q5M PRN (Reason: chest pain) 30 Days Qty: 30 RF: 3 diclofenac sodium 1 % gel 2 - 4 g topical BID PRN (Reason: Pain) RF: 0 Spiriva with HandiHaler 18 mcg capsule, w/inhalation device 1 cap inhalation DAILY RF: 0 fluticasone propionate [Flonase Allergy Relief] 50 mcg/actuation spray,suspension 2 spray INTRANASAL QAM RF: 0 gabapentin 400 mg capsule 400 mg PO QID RF: 0 lidocaine 5 % adhesive patch,medicated 1 patch TOPICAL DAILY RF: 0 lovastatin 10 mg tablet 10 mg PO BEDTIME RF: 0 amlodipine [Norvasc] 2.5 mg tablet 2.5 mg PO QAM RF: 0 pantoprazole [Protonix] 40 mg tablet,delayed release (DR/EC) 40 mg PO QAM RF: 0 trazodone 50 mg tablet 50 mg PO BEDTIME RF: 0 tramadol [Ultram] 50 mg tablet 50 mg PO QID PRN (Reason: Pain) RF: 0 hydroxyzine pamoate [Vistaril] 25 mg capsule 25 mg PO Q8H PRN (Reason: Panic Attack(S)) RF: 0 torsemide 10 mg tablet 20 mg PO BID RF: 0 Eliquis 5 mg tablet 5 mg PO BID RF: 0 amiodarone 200 mg tablet 200 mg PO QAM Qty: 90 RF: 3 ropinirole 1 mg tablet 1 mg PO BEDTIME RF: 0 hydrocodone-acetaminophen 5-325 mg tablet 1 tab PO QID PRN (Reason: Pain) RF: 0 Wixela Inhub 500-50 mcg/dose blister with device 1 inh INHALATION BID RF: 0 buspirone 7.5 mg tablet 7.5 mg PO TID RF: 0 montelukast 10 mg tablet 10 mg PO BEDTIME RF: 0 sertraline 50 mg tablet 50 mg PO TID RF: 0 Multivitamins 28 mg iron- 800 mcg Tablet 1 tab PO DAILY RF: 0 melatonin 10 mg Tablet 10 mg PO BEDTIME RF: 0 Vitamin B-12 1 tab PO DAILY RF: 0 Discharge Orders: Discharge ED (Routine); Ordered 07/31/21 Ordered By: Tania Peterson Referrals: Ildefonso Javed MD [Primary Care Provider] - 1-3 days Discharge Diet: Advance as tolerated Discharge Activity: Resume usual activity Patient Instructions: COPD (Chronic Obstructive Pulmonary Disease) (ED) Coding Level of Care Code ED Nurse Ob for Nito Fwd Exam Comprehensive
[2021-07-31 20:28] LABS: Basophils # 0.1 10^3/uL (0.0-0.1); Basophils % 0.8 %; Eosinophils # 0.3 10^3/uL (0.0-0.8); Eosinophils % 4.1 %; Hematocrit 38.6 % (37.0-47.0); Hemoglobin 12.6 g/dL (11.5-15.3); Lymphocytes # 2.7 10^3/uL (0.8-4.8); Mean Corpuscular HGB Conc 32.6 g/dL (30.0-36.0); Mean Corpuscular Hemoglobin 33.2 pg (28.0-34.0); Mean Corpuscular Volume 101.6 fl (81-99); Monocytes # 0.5 10^3/uL (0.2-0.9); Monocytes % 7.7 %; Neutrophils # 3.02 10^3/uL (1.8-7.7); Neutrophils % 46.2 %; Nucleated Red Blood Cells % 0 %; Platelet Count 228 10^3/cmm (130-400); Red Cell Distribution Width 13.6 % (12.1-15.1); White Blood Count 6.5 10^3/uL (4.0-10.0)
[2021-07-31 20:45] LABS: SARS Covid-2 Antigen Negative (Negative)
[2021-07-31 20:47] LABS: ABG PCO2 41.8 mmHg (35-45); ABG PH Result 7.39 (7.35-7.45); Base Excess ABG 0.2 mmol/L (-2.0-2.0); Blood Gas Allen Test Pos; Blood Gas Sample Site Brachial, right; Blood Gas Sample Type Arterial; Carboxyhemoglobin 0.2 %THgb (0.4-20.1); HCO3 ABG 25.3 mmol/L (22-26); HGB O2 Sat 98.5 % (95-100); Methemoglobin < 0.0 % (0.4-1.5); PO2 ABG 77.1 mmHg (80.0-100.0); Total Hemoglobin 11.7 g/dL (12-16)
[2021-07-31 20:48] LABS: Oxygen Device NC
[2021-07-31 21:01] LABS: Add Urine Microscopic? YES; Bilirubin Urine Neg (Negative); Blood Urine 2+ (Negative); Glucose Urine UA Norm (Normal); Ketones Urine Negative (Negative); Leukocyte Esterase Urine Negative (Negative); Nitrate Urine Negative (Negative); Protein Urine Neg (Negative); Urine Appearance Clear (CLEAR); Urine Color Yellow (Yellow); Urobilinogen Urine Neg (Negative); pH Urine 5 (5-7)
[2021-07-31 21:03] LABS: Add Urine Culture? No; RBC Urine 0-4 /hpf (0-2)
[2021-07-31 21:07] LABS: Anion Gap 19.1 (5-19); Blood Urea Nitrogen 26 mg/dL (8-23); Carbon Dioxide 21 mmol/L (22-29); Chloride 97 mmol/L (98-107); Glucose 96 mg/dL (65-115); Osmolality Calculated 281 mOsm/kg (285-295); Potassium 4.1 mmol/L (3.5-5.1); Sodium 133 mmol/L (136-145)
[2021-07-31 21:08] LABS: Alanine Aminotransferase 23 U/L (0-33); Albumin Level 4.5 g/dL (3.5-5.2); Alkaline Phosphatase 87 IU/L (35-105); Aspartate Amino Transferase 31 U/L (0-32); Calcium 8.8 mg/dL (8.5-10.5); NT Pro B Type Natriuretic Pept 1449 pg/mL (0-125); Total Bilirubin 0.4 mg/dL (0.15-1.2); Total Protein 7.5 g/dL (6.6-8.7)
[2021-07-31] MEDS: FUROsemide 10 mg/mL SDV 2mL 40 MG IVP (21:27)
[2021-07-31 21:35] VITALS: BP 142/67; PULSE 70; RESP 19; O2SAT 95
== END 2021-07-31 21:36 | disposition home or self-care (01) ==
PROVIDERS: Emergency Provider Emergency Medicine; PCP Family Medicine
DX: J44.1 Chronic obstructive pulmonary disease with (acute) exacerbation (principal); I48.20 Chronic atrial fibrillation, unspecified; Z79.01 Long term (current) use of anticoagulants; Z95.0 Presence of cardiac pacemaker; I10 Essential (primary) hypertension; Z87.891 Personal history of nicotine dependence; Z20.822 Contact with and (suspected) exposure to COVID-19
CPT/HCPCS: 36600; 71045; 80053; 81001; 82805; 83880; 85025; 87426; 93005; 93971; 96374; 96375; 99283; J1940; J2930

== ENCOUNTER → 2021-10-16 10:13 | Outpatient (BNVA) | payer MEDICAID, SELFPAY | PROVIDERS: PCP Family Medicine; Visit Provider Internal Medicine Cardiovascular Disease | DX: Z95.810 Presence of automatic (implantable) cardiac defibrillator (principal) ==

== ENCOUNTER → 2021-11-26 14:29 | Outpatient (BNVA) | payer MEDICARE, MEDICAID, SELFPAY | PROVIDERS: PCP Family Medicine; Visit Provider Internal Medicine Cardiovascular Disease | DX: I11.0 Hypertensive heart disease with heart failure (principal); I48.20 Chronic atrial fibrillation, unspecified; Z79.01 Long term (current) use of anticoagulants; I42.8 Other cardiomyopathies; Z95.810 Presence of automatic (implantable) cardiac defibrillator; I50.43 Acute on chronic combined systolic (congestive) and diastolic (congestive) heart failure | CPT/HCPCS: 80048; 83880; 99214 ==

== ENCOUNTER → 2021-12-02 12:53 | Outpatient (BNVA) | payer MEDICARE, MEDICAID, SELFPAY | PROVIDERS: PCP Family Medicine; Visit Provider Internal Medicine Cardiovascular Disease | DX: Z45.02 Encounter for adjustment and management of automatic implantable cardiac defibrillator (principal) | CPT/HCPCS: 93284 ==

== ENCOUNTER → 2021-12-24 13:39 | Outpatient (BNVA) | payer MEDICARE, MEDICAID, SELFPAY | PROVIDERS: PCP Family Medicine; Visit Provider Nurse Practitioner Family | DX: Z51.81 Encounter for therapeutic drug level monitoring (principal); I11.0 Hypertensive heart disease with heart failure; I50.22 Chronic systolic (congestive) heart failure; Z87.891 Personal history of nicotine dependence | CPT/HCPCS: 99213; 99214 ==

== ENCOUNTER 2022-01-01 12:43 | Outpatient (CLI) | payer MEDICARE, MEDICAID, SELFPAY ==
[2022-01-01 13:23] LABS: Anion Gap 16.2 (5-19); Blood Urea Nitrogen 30 mg/dL (8-23); Calcium 9.8 mg/dL (8.5-10.5); Carbon Dioxide 24 mmol/L (22-29); Chloride 104 mmol/L (98-107); Glucose 116 mg/dL (65-115); Osmolality Calculated 297 mOsm/kg (285-295); Potassium 4.2 mmol/L (3.5-5.1); Sodium 140 mmol/L (136-145)
== END 2022-01-01 12:44 | disposition home or self-care (01) ==
LOC: LAB 12:47
PROVIDERS: PCP Family Medicine; Visit Provider Nurse Practitioner Family
DX: I50.22 Chronic systolic (congestive) heart failure (principal)
CPT/HCPCS: 80048

== ENCOUNTER → 2022-01-14 13:38 | Outpatient (BNVA) | payer MEDICARE, MEDICAID, SELFPAY | PROVIDERS: PCP Family Medicine; Visit Provider Nurse Practitioner Family | DX: I11.0 Hypertensive heart disease with heart failure (principal); I50.22 Chronic systolic (congestive) heart failure; Z51.81 Encounter for therapeutic drug level monitoring | CPT/HCPCS: 99214 ==

== ENCOUNTER 2022-01-21 12:43 | Emergency (ER) | payer MEDICARE, MEDICAID, SELFPAY ==
[2022-01-21 13:11] VITALS: BP 163/71; PULSE 70; RESP 18; TEMP 36.7; O2SAT 97; BMI 30.9
--- NOTE | 2022-01-21 13:42 | ECG_ITS ---
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 Measurements Intervals [place] Rate: 70 P: -8 NV: 161 QRS: -69 QRSD: 100 T: 23 QT: 428 QTc: 462 Interpretive Statements VENTRICULAR PACED RHYTHM Compared to ECG 07/31/2021 19:06:47 NO SIGNIFICANT CHANGES Electronically Signed On 01-21-2022 18:30:50 CDT by Gregg Blanco M.D. [id number]
--- NOTE | 2022-01-21 13:42 | XRR_ITS ---
PROCEDURE INFORMATION: Exam: XR Chest Exam date and time: 01/21/2022 2:07 PM Age: 76 years old Clinical indication: Cough and dyspnea; Additional info: Dyspnea/cough TECHNIQUE: Imaging protocol: XR of the chest. Views: 1 view. COMPARISON: CR XR chest 1V portable [id number] 07/31/2021 7:36 PM FINDINGS: Lungs: Cardiac silhouette size, and vascularity are somewhat accentuated, likely related to poor inspiration/expansion however clinical correlation for mild CHF should be obtained. Upper lungs are clear. Lung bases are suboptimally assessed. Pleural spaces: Unremarkable. No pleural effusion. No pneumothorax. Heart/Mediastinum: As above. Bones/joints: No acute osseous findings. Other findings: Single view was submitted. XR/XR chest 1V portable [id number] IMPRESSION: 1. Accentuated cardiac silhouette size and vascularity. See discussion above. 2. No obvious acute consolidation. Suboptimal lung base assessment. Followup including lateral view may be obtained if clinically indicated.
--- NOTE | 2022-01-21 13:49 | ED_ITS ---
HPI - General Adult General: Chief complaint: General Medical Stated complaint: SOB, Thinks she overheated Time Seen by Provider: 01/21/22 13:41 Source: patient Mode of arrival: ambulatory Limitations: no limitations History of Present Illness: 76-year-old male presents to the emergency room with difficulty breathing. Patient has a history of COPD her air conditioning went out in her home. She has been trying to keep keep cool by taking cold showers. No fever sweats chills baseline cough minimally productive denies chest pain Onset (ago): day(s) Severity: moderate Relieving factors: none Exacerbating factors: none Associated symptoms: Reports dyspnea; Deny chest pain, confusion, cough, diaphoresis, decreased appetite, nausea, rash, palpitations, seizures or vomiting Review of Systems Const: Denies: diaphoresis ENMT: Denies: throat pain, ear or mastoid pain, nasal discharge or nasal congestion Card: Denies: chest pain or palpitations Resp: Reports: dyspnea, non-productive cough and wheezing; Denies: productive cough GI: Denies: abdominal pain, nausea, vomiting, hematemesis, coffee ground emesis, diarrhea, constipation, bloating, hematochezia or melena : Denies: flank pain, difficulty voiding, dysuria, urinary frequency or urinary urgency Skin/Breast: Denies: rash Neuro: Denies: confusion PFSH ED PFSH: Medical History Anxiety Arthritis Atrial fibrillation Chronic anticoagulation Chronic atrial fibrillation COPD (chronic obstructive pulmonary disease) Depression High risk medication use History of pacemaker Hypertension Hypertension, benign essential, age 0-18 ICD (implantable cardioverter-defibrillator), dual, in situ Non-ischemic cardiomyopathy AIDEN (obstructive sleep apnea) Restless leg syndrome Surgical History H/O cardiac radiofrequency ablation H/O: hysterectomy History of tonsillectomy Hx laparoscopic cholecystectomy Status post colonoscopy (02/28/20) diverticulosis Family History Mother CAD (coronary artery disease) Stroke Father CAD (coronary artery disease) Grandmother CAD (coronary artery disease) Cancer Grandfather CAD (coronary artery disease) Brother CAD (coronary artery disease) Sister CAD (coronary artery disease) Daughter CAD (coronary artery disease) Diabetes Cancer Son Diabetes Other Hypertension Denies family history of Clotting disorder Dementia Chronic kidney disease (CKD) Suicide Anesthesia complication Bleeding disorder Lung disease Social History Smoking and tobacco status: former smoker Quit status (tobacco): has quit using tobacco Year quit tobacco: 1979 Alcohol intake: never Lives independently: Yes Marital status: Single Current occupational status: retired History of recent travel: No Physical Exam Const: GENERAL APPEARANCE: cooperative and comfortable ORIENTATION/CONSCIOUSNESS: Yes awake, Yes oriented to person, Yes oriented to place and Yes oriented to time HENMT: COMMON NORMALS: normocephalic, atraumatic and hearing grossly normal bilaterally HEAD & SCALP: normocephalic and atraumatic Neck/C-Spine: COMMON NORMALS: no JVD Resp: COMMON NORMALS: normal respiratory effort, No retractions and No use of accessory muscles AUSCULTATION: wheezes (Mild) Cardio: COMMON NORMALS: no JVD, regular rate, regular rhythm and No murmurs present (Cardio) RATE: regular rate RHYTHM: regular rhythm GI: COMMON NORMALS: Soft to palpation and No hepatosplenomegaly present AUSCULTATION: Yes normoactive bowel sounds PALPATION: Yes Soft to palpation, No Tenderness to palpation present (GI), No Guarding due to palpation present (GI) and Yes No hepatosplenomegaly present Extremity: COMMON NORMALS: normal to inspection, capillary refill normal, no clubbing, cyanosis or edema, no calf tenderness and no pedal edema Neuro: SENSORIUM/ORIENTATION: Yes oriented to person, Yes oriented to place and Yes oriented to time Skin: COMMON NORMALS: no rashes or lesions noted GENERAL SKIN EXAM: no rashes or lesions noted Course Vital Signs: Vital signs: Vital Signs Temperature 98.1 F 01/21/22 13:58 Pulse Rate 70 01/21/22 13:58 Respiratory Rate 18 01/21/22 13:58 Blood Pressure 143/71 01/21/22 13:58 Pulse Oximetry 97 01/21/22 13:58 [facility] - General Adult Medical Decision Making Labs and labs and imaging are unremarkable. Patient is doing better indoors after nebulizer treatment we will go ahead and discharge her home put her on steroids use albuterol regularly. Case management is helping make arrangements for placement at the senior living. She would prefer to go home at this point we do not have anything that requires hospitalization. Medical Records I reviewed the patient's medical records. Lab Data I reviewed the patient's lab results. : 01/21/22 14:40 01/21/22 14:40 Radiology Impressions Chest X-Ray 01/21/22 13:42 IMPRESSION: 1. Accentuated cardiac silhouette size and vascularity. See discussion above. 2. No obvious acute consolidation. Suboptimal lung base assessment. Followup including lateral view may be obtained if clinically indicated. Laboratory Results WBC 8.5 10^3/uL (4.0-10.0) 01/21/22 14:40 RBC 4.45 10^6/uL (4.1-5.3) 01/21/22 14:40 Hgb 14.7 g/dL (11.5-15.3) 01/21/22 14:40 Hct 43.4 % (37.0-47.0) 01/21/22 14:40 MCV 97.5 fl (81-99) 01/21/22 14:40 MCH 33.0 pg (28.0-34.0) 01/21/22 14:40 MCHC 33.9 g/dL (30.0-36.0) 01/21/22 14:40 RDW 13.7 % (12.1-15.1) 01/21/22 14:40 Plt Count 282 10^3/cmm (130-400) 01/21/22 14:40 MPV 9.2 fL (7.4-10.4) 01/21/22 14:40 Neut % (Auto) 52.4 % 01/21/22 14:40 Lymph % (Auto) 37.7 % 01/21/22 14:40 [place] % (Auto) 7.6 % 01/21/22 14:40 Eos % (Auto) 1.6 % 01/21/22 14:40 Baso % (Auto) 0.6 % 01/21/22 14:40 Neut # (Auto) 4.46 10^3/uL (1.8-7.7) 01/21/22 14:40 Lymph # (Auto) 3.2 10^3/uL (0.8-4.8) 01/21/22 14:40 [place] # (Auto) 0.7 10^3/uL (0.2-0.9) 01/21/22 14:40 Eos # (Auto) 0.1 10^3/uL (0.0-0.8) 01/21/22 14:40 Baso # (Auto) 0.1 10^3/uL (0.0-0.1) 01/21/22 14:40 Nucleated RBC % (auto) 0 % 01/21/22 14:40 Nucleated RBCs # 0.0 /100WBC 01/21/22 14:40 Sodium 139 mmol/L (136-145) 01/21/22 14:40 Potassium 4.1 mmol/L (3.5-5.1) 01/21/22 14:40 Chloride 101 mmol/L (98-107) 01/21/22 14:40 Carbon Dioxide 22 mmol/L (22-29) 01/21/22 14:40 Anion Gap 20.1 (5-19) H 01/21/22 14:40 BUN 22 mg/dL (8-23) 01/21/22 14:40 Creatinine 1.2 mg/dL (0.5-0.9) H 01/21/22 14:40 GFR Calculation Not Reportable 01/21/22 14:40 Glucose 107 mg/dL (65-115) 01/21/22 14:40 Calculated Osmolality 292 mOsm/kg (285-295) 01/21/22 14:40 Calcium 9.9 mg/dL (8.5-10.5) 01/21/22 14:40 Total Bilirubin 0.4 mg/dL (0.15-1.2) 01/21/22 14:40 AST 42 U/L (0-32) H 01/21/22 14:40 ALT 24 U/L (0-33) 01/21/22 14:40 Alkaline Phosphatase 103 IU/L (35-105) 01/21/22 14:40 Total Protein 8.7 g/dL (6.6-8.7) 01/21/22 14:40 Albumin 4.6 g/dL (3.5-5.2) 01/21/22 14:40 Globulin 4.1 g/dL (1.3-4.6) 01/21/22 14:40 Urine Color Yellow (Yellow) 01/21/22 14:28 Urine Appearance Clear (CLEAR) 01/21/22 14:28 Urine pH 5 (5-7) 01/21/22 14:28 Ur Specific [place] 1.010 (1.005-1.030) 01/21/22 14:28 Urine Protein Neg (Negative) 01/21/22 14:28 Urine Glucose (UA) Norm (Normal) 01/21/22 14:28 Urine Ketones Negative (Negative) 01/21/22 14:28 Urine Blood Neg (Negative) 01/21/22 14:28 Urine Nitrate Negative (Negative) 01/21/22 14:28 Urine Bilirubin Neg (Negative) 01/21/22 14:28 Urine Urobilinogen Norm mg/dL (Negative) 01/21/22 14:28 Ur Leukocyte Esterase 1+ (Negative) H 01/21/22 14:28 Urine RBC 0-4 /hpf (0-2) H 01/21/22 14:28 Urine WBC 15-25 /hpf (0-5) H 01/21/22 14:28 Ur Squamous Epith Cells 0-4 /hpf (0-5) H 01/21/22 14:28 Amorphous Sediment Not Reportable 01/21/22 14:28 Urine Bacteria Trace /hpf (NONE) 01/21/22 14:28 Discharge Plan Discharge Patient Disposition: Home Clinical Impression: COPD exacerbation Condition: Stable Prescriptions: New Medrol (Titus) 4 mg tablets,dose pack See Rx Instructions .ROUTE .COMPLEX Qty: 21 0RF Rx Instructions: orally per package directions albuterol sulfate 90 mcg/actuation HFA aerosol inhaler 2 inh INHALATION Q4H PRN (Reason: shortness of breath or wheezing) Qty: 18 0RF No Action nitroglycerin 0.4 mg tablet, sublingual 0.4 mg SUBLINGUAL Q5M PRN (Reason: chest pain) 30 Days Qty: 30 3RF Rx Instructions: until response; do not exceed 3 doses per episode diclofenac sodium 1 % gel 2 - 4 g topical BID PRN (Reason: Pain) 0RF fluticasone propionate [Flonase Allergy Relief] 50 mcg/actuation spray,suspension 2 spray INTRANASAL QAM 0RF gabapentin 400 mg capsule 400 mg PO QID 0RF lidocaine 5 % adhesive patch,medicated 1 patch TOPICAL DAILY 0RF lovastatin 10 mg tablet 10 mg PO BEDTIME 0RF amlodipine [Norvasc] 2.5 mg tablet 2.5 mg PO QAM 0RF pantoprazole [Protonix] 40 mg tablet,delayed release (DR/EC) 40 mg PO QAM 0RF trazodone 50 mg tablet 50 mg PO BEDTIME 0RF tramadol [Ultram] 50 mg tablet 50 mg PO QID PRN (Reason: Pain) 0RF hydroxyzine pamoate [Vistaril] 25 mg capsule 25 mg PO Q8H PRN (Reason: Panic Attack(S)) 0RF Eliquis 5 mg tablet 5 mg PO BID 0RF multivitamin Tablet 1 tab PO DAILY 0RF torsemide 10 mg tablet 20 mg PO DAILY 0RF sacubitril-valsartan 97-103 mg tablet 1 tab PO BID Qty: 180 3RF amiodarone 200 mg tablet 200 mg PO QAM Qty: 90 3RF ropinirole 1 mg tablet 1 mg PO BEDTIME 0RF hydrocodone-acetaminophen 5-325 mg tablet 1 tab PO QID PRN (Reason: Pain) 0RF fluticasone propion-salmeterol [Wixela Inhub] 500-50 mcg/dose blister with device 1 inh INHALATION BID 0RF buspirone 7.5 mg tablet 7.5 mg PO TID 0RF montelukast 10 mg tablet 10 mg PO BEDTIME 0RF sertraline 50 mg tablet 50 mg PO TID 0RF Vitamin B-12 2 tab PO QAM 0RF Spiriva Respimat 2.5 mcg/actuation mist 2 puff INHALATION DAILY 0RF folic acid 1 mg Tablet 1 mg PO DAILY 0RF Hair,Skin and Nails Tablet 1 tab PO DAILY 0RF Discharge Orders: Discharge ED (Routine); Ordered 01/21/22 Ordered By: Dl Morales Referrals: Ildefonso Javed MD [Primary Care Provider] - Discharge Diet: Usual diet Discharge Activity: Increase activity as tolerated Patient Instructions: Opioid Safety Coding Level of Care Code ED Wheel Cleaner for Nito Rizvi
[2022-01-21 13:58] VITALS: BP 143/71; PULSE 70; RESP 18; TEMP 36.7; O2SAT 97
[2022-01-21 14:51] LABS: Basophils # 0.1 10^3/uL (0.0-0.1); Basophils % 0.6 %; Eosinophils # 0.1 10^3/uL (0.0-0.8); Eosinophils % 1.6 %; Hematocrit 43.4 % (37.0-47.0); Hemoglobin 14.7 g/dL (11.5-15.3); Lymphocytes # 3.2 10^3/uL (0.8-4.8); Lymphocytes % 37.7 %; Mean Corpuscular HGB Conc 33.9 g/dL (30.0-36.0); Mean Corpuscular Volume 97.5 fl (81-99); Mean Platelet Volume 9.2 fL (7.4-10.4); Monocytes # 0.7 10^3/uL (0.2-0.9); Monocytes % 7.6 %; Neutrophils # 4.46 10^3/uL (1.8-7.7); Neutrophils % 52.4 %; Nucleated Red Blood Cells % 0 %; Platelet Count 282 10^3/cmm (130-400); Red Blood Count 4.45 10^6/uL (4.1-5.3); Red Cell Distribution Width 13.7 % (12.1-15.1); White Blood Count 8.5 10^3/uL (4.0-10.0)
[2022-01-21 15:04] LABS: Add Urine Microscopic? YES; Bilirubin Urine Neg (Negative); Blood Urine Neg (Negative); Glucose Urine UA Norm (Normal); Ketones Urine Negative (Negative); Leukocyte Esterase Urine 1+ (Negative); Nitrate Urine Negative (Negative); Protein Urine Neg (Negative); Urine Appearance Clear (CLEAR); Urine Color Yellow (Yellow); Urobilinogen Urine Norm (Negative); pH Urine 5 (5-7)
[2022-01-21 15:06] LABS: Bacteria Urine TRACE /hpf; RBC Urine 0-4 /hpf (0-2); Squamous Epithelial Cell Urine 0-4 /hpf (0-5); WBC Urine 15-25 /hpf (0-5)
[2022-01-21 15:07] LABS: Add Urine Culture? Yes
[2022-01-21 15:21] LABS: Alanine Aminotransferase 24 U/L (0-33); Albumin Level 4.6 g/dL (3.5-5.2); Alkaline Phosphatase 103 IU/L (35-105); Blood Urea Nitrogen 22 mg/dL (8-23); Calcium 9.9 mg/dL (8.5-10.5); Carbon Dioxide 22 mmol/L (22-29); Chloride 101 mmol/L (98-107); Globulin 4.1 g/dL (1.3-4.6); Glucose 107 mg/dL (65-115); Osmolality Calculated 292 mOsm/kg (285-295); Sodium 139 mmol/L (136-145); Total Bilirubin 0.4 mg/dL (0.15-1.2); Total Protein 8.7 g/dL (6.6-8.7)
[2022-01-21 15:23] LABS: Anion Gap 20.1 (5-19); Aspartate Amino Transferase 42 U/L (0-32); Potassium 4.1 mmol/L (3.5-5.1)
--- NOTE | 2022-01-21 15:23 | DCPLANNER ---
Addendum entered by Jen Salazar 01/22/22 10:21: Thais from [facility] called egg caser and informed this senior technical writer that patient does not meet criteria to be admitted to the nursing facility. manager payment was told that Thais told patient about [facility] an assisted living facility. Patient is supposed to be calling the facility. Original Note: manager payment was asked to find senior care placement for patient in a skilled care facility. Abril Villar, from [facility], , spoke with egg caser about patient. manager payment spoke with ER physician that will see patient and informed him of what adult [facility] services had said. manager payment spoke with patient about dedicated intermodal truck driver placement. Patient stated that she was agreeable to go to a dedicated intermodal truck driver placement facility. Patient stated that she would like [facility], then [facility] and then [facility] as third choice. manager payment called [facility], spoke with Shobha, was told that the facility did not have any senior care beds at this time. manager payment called [facility], was told that facility was not taking any admits at this time. manager payment called [facility], spoke with Thais, who stated that the facility was accepting medicaid patients. manager payment sent patients information to [facility] for review. manager payment asked Thais to contact [facility] if facility could accept or not. manager payment did update patient, nurse and physician that patients information was sent to [facility] for review. manager payment called [facility] to update Abril on patient. manager payment was unable to speak with Abril at this time, a voicemail was left for her to return egg caser phone call.
== END 2022-01-21 15:57 | disposition home or self-care (01) ==
PROVIDERS: Emergency Provider Family Medicine; PCP Family Medicine
DX: J44.1 Chronic obstructive pulmonary disease with (acute) exacerbation (principal)
CPT/HCPCS: 71045; 80053; 81001; 85025; 87086; 93005; 99283

== ENCOUNTER → 2022-05-14 10:00 | Outpatient (BNVA) | payer MEDICARE, MEDICAID, SELFPAY | PROVIDERS: PCP Family Medicine; Visit Provider Internal Medicine Cardiovascular Disease | DX: Z45.02 Encounter for adjustment and management of automatic implantable cardiac defibrillator (principal) | CPT/HCPCS: 93284 ==

== ENCOUNTER → 2022-05-20 13:47 | Outpatient (BNVA) | payer MEDICARE, MEDICAID, SELFPAY | PROVIDERS: PCP Family Medicine; Visit Provider Internal Medicine Cardiovascular Disease | DX: I11.0 Hypertensive heart disease with heart failure (principal); I50.22 Chronic systolic (congestive) heart failure; Z95.810 Presence of automatic (implantable) cardiac defibrillator; I42.8 Other cardiomyopathies; Z79.899 Other long term (current) drug therapy; I48.20 Chronic atrial fibrillation, unspecified; Z79.01 Long term (current) use of anticoagulants; Z87.891 Personal history of nicotine dependence | CPT/HCPCS: 99214 ==

== ENCOUNTER → 2022-06-10 08:58 | Outpatient (BNVA) | payer MEDICARE, MEDICAID, SELFPAY | PROVIDERS: PCP Family Medicine; Visit Provider Internal Medicine Cardiovascular Disease | DX: Z45.02 Encounter for adjustment and management of automatic implantable cardiac defibrillator (principal) | CPT/HCPCS: 93284 ==

== ENCOUNTER → 2022-06-17 15:50 | Outpatient (BNVA) | payer MEDICARE, MEDICAID, SELFPAY | PROVIDERS: PCP Family Medicine; Visit Provider Internal Medicine Cardiovascular Disease | DX: R06.02 Shortness of breath (principal); I50.22 Chronic systolic (congestive) heart failure; Z79.01 Long term (current) use of anticoagulants; R55 Syncope and collapse; R53.83 Other fatigue; I48.20 Chronic atrial fibrillation, unspecified; Z45.02 Encounter for adjustment and management of automatic implantable cardiac defibrillator; I42.8 Other cardiomyopathies; I10 Essential (primary) hypertension; J43.9 Emphysema, unspecified; Z87.891 Personal history of nicotine dependence | CPT/HCPCS: 36415; 80048; 83880; 85025; 85610; 86850; 86900; 99214; 99215 ==

== ENCOUNTER 2022-06-23 06:12 | Outpatient (CLI) | payer MEDICARE, MEDICAID, SELFPAY ==
[2022-06-23 07:15] VITALS: BMI 30.9
[2022-06-23 07:16] VITALS: BP 128/63; PULSE 71; RESP 18; O2SAT 95
--- NOTE | 2022-06-23 07:30 | PC.NURSE ---
Around 0715: Patient stated she took eliquis on Thursday or Thursday with prescribed doses of lovenox for bridge therapy. Notified Dr. Grigsby, service order expediter. Orders received from Dr. Grigsby to be rescheduled for procedure. IV removed from right AC. Instructions given to patient to follow up with Dr. Grigsby and primary care doctor. Patient verbalized understanding of all teaching. Patient discharged home with grandson via private vehicle.
== END 2022-06-23 06:13 | disposition home or self-care (01) ==
PROVIDERS: PCP Family Medicine; Visit Provider Internal Medicine Cardiovascular Disease
DX: Z45.010 Encounter for checking and testing of cardiac pacemaker pulse generator [battery] (principal); Z53.8 Procedure and treatment not carried out for other reasons
CPT/HCPCS: 36415

== ENCOUNTER 2022-06-30 12:38 | Outpatient (CLI) | payer MEDICARE, MEDICAID, SELFPAY ==
[2022-06-30 14:07] LABS: Basophils % 0.6 %; Eosinophils # 0.1 10^3/uL (0.0-0.8); Eosinophils % 1.9 %; Hematocrit 40.7 % (37.0-47.0); Hemoglobin 13.1 g/dL (11.5-15.3); Lymphocytes # 2.8 10^3/uL (0.8-4.8); Lymphocytes % 41.3 %; Mean Corpuscular HGB Conc 32.2 g/dL (30.0-36.0); Mean Corpuscular Hemoglobin 34.3 pg (28.0-34.0); Mean Corpuscular Volume 106.5 fl (81-99); Mean Platelet Volume 8.4 fL (7.4-10.4); Monocytes # 0.4 10^3/uL (0.2-0.9); Monocytes % 6.6 %; Neutrophils # 3.32 10^3/uL (1.8-7.7); Neutrophils % 49.5 %; Nucleated Red Blood Cells % 0 %; Platelet Count 322 10^3/cmm (130-400); Red Blood Count 3.82 10^6/uL (4.1-5.3); Red Cell Distribution Width 13.7 % (12.1-15.1); White Blood Count 6.7 10^3/uL (4.0-10.0)
[2022-06-30 14:18] LABS: INR 0.94 (0.83-1.21); Prothrombin Time (Patient) 12.8 Seconds (12.0-15.1)
[2022-06-30 14:25] LABS: Anion Gap 17.3 (5-19); Blood Urea Nitrogen 25 mg/dL (8-23); Calcium 9.8 mg/dL (8.5-10.5); Carbon Dioxide 25 mmol/L (22-29); Chloride 101 mmol/L (98-107); Glucose 117 mg/dL (65-115); Osmolality Calculated 293 mOsm/kg (285-295); Potassium 4.3 mmol/L (3.5-5.1); Sodium 139 mmol/L (136-145)
== END 2022-06-30 12:39 | disposition home or self-care (01) ==
LOC: LAB 12:40
PROVIDERS: PCP Family Medicine; Visit Provider Internal Medicine Cardiovascular Disease
DX: Z45.02 Encounter for adjustment and management of automatic implantable cardiac defibrillator (principal); I48.20 Chronic atrial fibrillation, unspecified; I50.22 Chronic systolic (congestive) heart failure; R07.89 Other chest pain; Z79.01 Long term (current) use of anticoagulants; I42.8 Other cardiomyopathies; Z95.810 Presence of automatic (implantable) cardiac defibrillator
CPT/HCPCS: 36415; 80048; 85025; 85610; 86850; 86900

== ENCOUNTER 2022-07-02 10:51 | Day surgery (SDC) | payer MEDICARE, MEDICAID, SELFPAY ==
[2022-07-02] VITALS (11 sets, daily range): BP systolic 114–140; BP diastolic 55–69; PULSE 69–73; RESP 13–19; TEMP 36.7–37.2; O2SAT 90–99; BMI 30.9
--- NOTE | 2022-07-02 13:34 | P.HPUD_ITS ---
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-D , SUPPLIER QUALITY ENGINEERING MANAGER device change indication PLANNED PROCEDURE: Operation Date: 07/02/22 07:00 Proposed Procedures p Pacemaker Generator Change 85802,Z45.010,R55,R06.02,R53.83,I50.22(Not Applicable) - Tex Grigsby MD PATIENT REASSESSED PRIOR TO SEDATION, WITH NO CHANGE NOTED: Yes PHYSICAL EXAM: alert, oriented x 3, clear to auscultation bilaterally and regular rate & rhythm (Irregular rhythm) AIRWAY EVAL/ANESTHESIA PLAN: normal airway, see other exam findings, ASA III, Monitored Anesthesia, Local Anesthesia, Risks, benefits & alternatives of sedation and/or procedure discussed and Patient agrees to continue as planned
[2022-07-02] MEDS: duloxetine 20 mg Capsule PO (17:12)
[2022-07-02] MEDS: ceFAZolin 2,000 MG in sodium chloride 0.9% (plus) 50 ML 100 MG IV ×2 (17:12→23:14)
[2022-07-02] MEDS: gabapentin 400 mg Capsule PO ×2 (17:12→20:41)
[2022-07-02] MEDS: sodium chloride 0.9% 1,000 ML 75 ML IV (17:13)
[2022-07-02] MEDS: TRAMadol 50 mg Tablet PO (19:31)
[2022-07-02] MEDS: albuterol 2.5 mg/3 mL Neb INHALATION (19:42)
[2022-07-02] MEDS: budesonide 0.5 mg/2 mL Neb INHALATION (19:42)
[2022-07-02] MEDS: BuSPIRONE 10 mg Tablet 7.5 MG PO (20:41)
[2022-07-02] MEDS: atorvastatin 40 mg Tablet 20 MG PO (20:41)
[2022-07-02] MEDS: montelukast sodium 10 mg Tablet PO (20:41)
[2022-07-02] MEDS: ropinirole 1 mg Tablet PO (20:41)
[2022-07-02] MEDS: trazodone 50 mg Tablet PO (20:42)
--- NOTE | 2022-07-02 21:27 | PM.OP ---
Operative Report Date of procedure: July 02, 2022 Pre-op diagnosis: Preop Diagnosis ICD PACKING CHECKER device change is indicated Procedure: PROCEDURE: ICD REVISION PREOPERATIVE DIAGNOSIS: ICD elective replacement indication. POSTOPERATIVE DIAGNOSIS: ICD elective replacement indication. ESTIMATED BLOOD LOSS: None COMPLICATIONS: None. BRIEF HISTORY: The patient is 76-year-old white female who had a ICD implantation for nonischemic cardiomyopathy/as primary prophylaxis for malignant ventricular arrhythmia. The patient was found to have elective replacement indication, during routine office followup evaluation. For further management of patient's condition and for the symptomatic bradycardia, the patient required an ICD revision. Patient has a history of chronic atrial fibrillation and mild coronary artery disease by angiogram The procedure was explained to the patient in detail with the risks and benefits. The risks of bleeding, hematoma, vascular injury, infection and other concomitant complications were explained in detail, which the patient understood well and consented to proceed. PROCEDURES PERFORMED: 1. Explantation of the old ICD device . 2. Implantation of the new ICD device The patient brought to the Cardiac Pre Planning Advisor. The left side of the neck and the subclavian area were cleaned and draped in a sterile fashion. 1% Xylocaine was used for local anesthetic agent. A 2 inch long incision was made just below the previous pacemaker scar. By sharp and blunt dissection, the ICD pocket was accessed. The old generator was delivered from the pocket. The generator was detached from the shirley The new generator was attached to the lead. The ICD pocket was copiously irrigated with vancomycin solution. Complete hemostasis was achieved. The lead was positioned behind the generator and the generator was attached to the pectoralis fascia by suturing with 0 Surgilon. Sponge counts were confirmed. The ICD pocket was closed in layers. Skin was approximated using 4-0 Vicryl. EXPLANTED DEVICE: ICD Device: Date of implant 01/17/2014 Brand: Ilesto 7 Model number: [id number]-T Serial number: [id number]. Make-BuySimple IMPLANTED DEVICES: 1. R Ventricular Lead: Date of implantation: 01/17/2014 Model number: Linox smart S 65 Serial number: [id number] Make: BuySimple. 2. Left-ventricular lead Date of implantation 01/17/2014 Model number Attain 4196-88 Serial number:[id number] Make: FreeLunched 3. Implanted Generator: Date of implantation 07/02/2022 Brand: None [employer] FOAMITE MIXER-D SureScan. Model number: [id number] Serial number: [id number] 4. To plug the SVC coil port we used Pin Plug model # 6719 5. To plug right atrial port we used Pin Plug model #6725 Stimulation Threshold: Through the Device--the ventricular sensing was noted obtained because of the ventricular pacer dependency.. Lead impedance was 475 and the pacing threshold was 1.0 volts at 0.4 milliseconds. The LV sensing was not available. The lead impedance was 361 ohms and the pacing threshold was 0.75 volts at 0.4 ms. The HV lead impedance was 84 ohms The pacemaker was set for VVIR mode with an upper rate of 120 and a lower rate of 70. The DFT testing was not done Ventricular tachycardia detection rate was set at 150 bpm. The VT 1 detection rate was 171 bpm. The ventricular fibrillation detection rate was set at 200 bpm. The RV output was 2.5 at a pulse width of 0.4 ms and RV sensitivity of 0.3 mV. The left ventricular output was 2.01 with a pulse width of 0.4 ms. The LV sensitivity is corrected to 0.3 mV. The pacing configuration was LV tip to RV coil. A pressure dressing was applied over the ICD site. The patient was transferred back to medical floor in stable condition.
[2022-07-03] VITALS (7 sets, daily range): BP systolic 108–120; BP diastolic 62–67; PULSE 69–70; RESP 18–19; TEMP 36.5–36.8; O2SAT 93–96
[2022-07-03] MEDS: TRAMadol 50 mg Tablet PO (04:12)
[2022-07-03] MEDS: amiodarone 200 mg Tablet PO (05:05)
[2022-07-03] MEDS: pantoprazole DR 40 mg Tablet PO (05:05)
[2022-07-03] MEDS: amlodipine 5 mg Tablet 2.5 MG PO (05:05)
[2022-07-03] MEDS: fluticasone nasal spray 16gm Btl 2 SPRAY INTRANASAL (05:07)
--- NOTE | 2022-07-03 06:00 | ECG_ITS ---
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 Measurements Intervals [place] Rate: 69 P: 0 NV: 0 QRS: 219 QRSD: 178 T: 70 QT: 496 QTc: 534 Interpretive Statements ELECTRONIC VENTRICULAR PACEMAKER ABNORMAL RHYTHM ECG Compared to ECG 01/21/2022 14:21:23 No significant changes Electronically Signed On 07-03-2022 12:49:50 RENEWABLE ENERGY BROKER by Tex Grigsby M.D. [email or web address] [email or web address] Groupselect medical specialty [email or web address] - [id number]
--- NOTE | 2022-07-03 06:18 | PC.NURSE ---
PACEMAKER Pacemaker interrogation was done this am with report received. Pacemaker functioning well
[2022-07-03] MEDS: ceFAZolin 2,000 MG in sodium chloride 0.9% (plus) 50 ML 100 MG IV (06:32)
[2022-07-03] MEDS: BuSPIRONE 10 mg Tablet 7.5 MG PO (08:01)
[2022-07-03] MEDS: TORSEmide 20 mg Tablet PO (08:01)
[2022-07-03] MEDS: gabapentin 400 mg Capsule PO (08:01)
[2022-07-03] MEDS: lidocaine 5% Patch 1 PATCH TOPICAL (08:01)
[2022-07-03] MEDS: folic acid 1 mg Tablet PO (08:01)
[2022-07-03] MEDS: duloxetine 20 mg Capsule PO (08:01)
[2022-07-03] MEDS: calcium carb-vit d 600mg/400unit 1 Tablet 1 EACH PO (08:01)
[2022-07-03] MEDS: multivitamin therapeutic Tablet 1 TAB PO (08:01)
[2022-07-03] MEDS: albuterol 2.5 mg/3 mL Neb INHALATION (09:46)
[2022-07-03] MEDS: budesonide 0.5 mg/2 mL Neb INHALATION (09:46)
--- NOTE | 2022-07-03 09:54 | P.PN_ITS ---
Subjective Subjective: This patient was admitted to hospital following the ICD revision, for IV antibiotics and close monitoring. She received 3 doses of IV cefazolin. Has not had any reaction. No hematoma bleeding at the ICD revision site. Vital signs remained stable. Telemetry showed atrial fibrillation with demand V paced rhythm. Medications: Medication Review Details: Current Medications Albuterol Sulfate (Albuterol 8 Gm Mdi) 1 puff INHALATION Q4H PRN PRN Reason: shortness of breath or wheezing Albuterol Sulfate (Albuterol 2.5 Mg/3 Ml Neb) 2.5 mg INHALATION QID.RESPIRATORY [facility] Last Admin: 07/03/22 09:46 Dose: 2.5 mg Amiodarone HCl (Amiodarone 200 Mg Tablet) 200 mg PO QAM [facility] Last Admin: 07/03/22 05:05 Dose: 200 mg Amlodipine Besylate (Amlodipine 5 Mg Tablet) 2.5 mg PO QAM [facility] Last Admin: 07/03/22 05:05 Dose: 2.5 mg Atorvastatin Calcium (Atorvastatin 40 Mg Tablet) 20 mg PO BEDTIME [facility] Last Admin: 07/02/22 20:41 Dose: 20 mg Budesonide (Budesonide 0.5 Mg/2 Ml Neb) 0.5 mg INHALATION BID.RESPIRATORY [facility] Last Admin: 07/03/22 09:46 Dose: 0.5 mg Buspirone HCl (Buspirone 10 Mg Tablet) 7.5 mg PO TID [facility] Last Admin: 07/03/22 08:01 Dose: 7.5 mg Calcium Carbonate (Calcium Carb-Vit D 600mg/400unit 1 Tablet) 1 each PO DAILY [facility] Last Admin: 07/03/22 08:01 Dose: 1 each Diclofenac Sodium (Diclofenac 1% Topical Gel 100 Gm) 2 - 4 applic TOPICAL BID PRN PRN Reason: Pain Diphenhydramine HCl (Diphenhydramine 25 Mg Capsule) 25 mg PO TID PRN PRN Reason: Insomnia Duloxetine HCl (Duloxetine 20 Mg Capsule) 20 mg PO BID [facility] Last Admin: 07/03/22 08:01 Dose: 20 mg Fluticasone Propionate (Fluticasone Nasal [place] 16gm Btl) 2 spray INTRANASAL QAM [facility] Last Admin: 07/03/22 05:07 Dose: 2 spray Folic Acid (Folic Acid 1 Mg Tablet) 1 mg PO DAILY [facility] Last Admin: 07/03/22 08:01 Dose: 1 mg Gabapentin (Gabapentin 400 Mg Capsule) 400 mg PO QID [facility] Last Admin: 07/03/22 08:01 Dose: 400 mg Hydroxyzine Pamoate (Hydroxyzine 25 Mg Capsule) 25 mg PO Q8H PRN PRN Reason: Panic Attack(S) Sodium Chloride (Sodium Chloride 0.9%) 1,000 mls @ 75 mls/hr IV .[id number] [facility] Last Admin: 07/02/22 17:13 Dose: 75 mls/hr Lidocaine (Lidocaine 5% Patch) 1 patch TOPICAL DAILY [facility] Last Admin: 07/03/22 08:01 Dose: 1 patch Montelukast Sodium (Montelukast Sodium 10 Mg Tablet) 10 mg PO BEDTIME [facility] Last Admin: 07/02/22 20:41 Dose: 10 mg Multivitamins Therapeutic (Multivitamin Therapeutic Tablet) 1 tab PO DAILY [facility] Last Admin: 07/03/22 08:01 Dose: 1 tab Nitroglycerin (Nitroglycerin 0.4 Mg Sublingual Tablet) 0.4 mg SUBLINGUAL Q5M PRN PRN Reason: chest pain Non-Formulary Medication (Multivitamin With Minerals [Hair,Skin And Nails]) 1 tab PO DAILY [facility] Last Admin: 07/03/22 08:07 Dose: Not Given Non-Formulary Medication (Sacubitril-Valsartan) 1 tab PO BID [facility] Last Admin: 07/03/22 08:07 Dose: Not Given Non-Formulary Medication (Vitamin B-12) 2 tab PO QAM [facility] Last Admin: 07/03/22 05:07 Dose: Not Given Pantoprazole Sodium (Pantoprazole Dr 40 Mg Tablet) 40 mg PO QAM [facility] Last Admin: 07/03/22 05:05 Dose: 40 mg Ropinirole HCl (Ropinirole 1 Mg Tablet) 1 mg PO BEDTIME [facility] Last Admin: 07/02/22 20:41 Dose: 1 mg Torsemide (Torsemide 20 Mg Tablet) 20 mg PO DAILY [facility] Last Admin: 07/03/22 08:01 Dose: 20 mg Tramadol HCl (Tramadol 50 Mg Tablet) 50 mg PO QID PRN PRN Reason: Pain Last Admin: 07/03/22 04:12 Dose: 50 mg Trazodone HCl (Trazodone 50 Mg Tablet) 50 mg PO BEDTIME [facility] Last Admin: 07/02/22 20:42 Dose: 50 mg Vitals/I&O/Wt Last Vital Signs Temp 97.9 F 07/03/22 07:42 Pulse 70 07/03/22 09:46 Resp 18 07/03/22 09:46 BP 108/62 07/03/22 07:42 Pulse Ox 96 07/03/22 09:46 O2 Del Method 07/03/22 09:46 O2 Flow Rate 2 07/03/22 09:46 07/02/22 07/03/22 07/03/22 22:59 06:59 14:59 Intake Total 290 / 290 350 / 640 Balance 290 / 290 350 / 640 Weight last 48 hrs Weight 175 lb Weight 175 lb Physical Exam Narrative: GENERAL: The patient is alert and oriented times three. Not in any acute distress. HEENT: No significant pallor, icterus or lymphadenopathy.Oral cavity: There are no mucous membrane lesions. NECK: Trachea appears to be central. No masses noted. No JVD or thyromegaly appreciated. RESPIRATORY: Chest is symmetrical. No intercostals muscle retraction or any accessory muscle activation. There is no chest wall tenderness. Breath sounds are heard bilaterally. No rales or rhonchi heard. No evidence of any consolidation. The ICD revision site has no hematoma bleeding. BREASTS: Deferred. HEART: The heart sounds are normal. No S3 or S4. No significant murmurs. No pericardial rub ABDOMEN: No vessel pulsations or distention. No tenderness. No organomegaly appreciated. Bowel sounds are normally heard. : Deferred. RECTAL: Deferred. LYMPHATIC: No lymphadenopathy noted in the neck. EXTREMITIES: No edema or cyanosis. No clubbing. MUSCULOSKELETAL: No acute joint deformities or swelling SKIN: There are no significant rashes or ecchymosis NEUROPSYCHIATRIC: The patient is alert and oriented x3. Appears to be in a good mood. No tremors or rigidity noted. A&P Assessment and plan (1) ICD (implantable cardioverter-defibrillator) battery depletion: Patient s/p ICD revision. Currently seems to be stable. Has been ambulating on telemetry. No new arrhythmias on the monitor. (2) Hypertension, benign essential, age 0-18: Currently normotensive. Continue on the current medications. (3) Non-ischemic cardiomyopathy: Her heart failure is compensated. On Entresto. May continue on the current medications. (4) Chronic atrial fibrillation: Gender he is on long-term oral anticoagulation. Will be restarting Eliquis tomorrow. May continue on the current dose of the Eliquis. Plan Since the patient remained stable, she is being discharged home today. Patient was given instructions on the device revision. Will be seen back in the clinic next week for a device check and wound check. Follow the discharge instructions. Attestations Medical Necessity Statement*: Going home today. Coding Level of Care Code Acute Patent Law Specialist for [facility] Dmitri Medical Decision Making Moderate Complexity Diagnoses ICD (implantable cardioverter-defibrillator) battery depletion Z45.02 Hypertension, benign essential, age 0-18 I10 Non-ischemic cardiomyopathy I42.8 Chronic atrial fibrillation I48.20
== END 2022-07-03 11:45 | disposition home or self-care (01) ==
LOC: MEDSURG 07-03 00:25 → OPMS 07-03 09:36 → CCL 07-03 09:36 → MEDSURG 07-03 09:54
PROVIDERS: PCP Family Medicine; Visit Provider Internal Medicine Cardiovascular Disease
DX: Z45.010 Encounter for checking and testing of cardiac pacemaker pulse generator [battery] (principal); I10 Essential (primary) hypertension; I42.8 Other cardiomyopathies; I48.20 Chronic atrial fibrillation, unspecified; Z79.899 Other long term (current) drug therapy; Z79.01 Long term (current) use of anticoagulants; M19.90 Unspecified osteoarthritis, unspecified site; F32.A Depression, unspecified; G47.33 Obstructive sleep apnea (adult) (pediatric); Z87.891 Personal history of nicotine dependence
CPT/HCPCS: 33241; 36415; 93005; 94640; 96365; 96367; 97165; 99152; 99153; A4216; C1769; C1882; J0690; J2250; J3010; J3370; J3535; J7030; J7050; J7613; J7626

== ENCOUNTER 2022-08-13 11:57 | Outpatient (CLI) | payer MEDICARE, MEDICAID, SELFPAY ==
--- NOTE | 2022-08-13 12:15 | XRR_ITS ---
PROCEDURE INFORMATION: Exam: XR Chest Exam date and time: 08/13/2022 12:20 PM Age: 76 years old Clinical indication: Dyspnea; Additional info: Bilateral leg edema/dyspnea TECHNIQUE: Imaging protocol: Radiologic exam of the chest. Views: 2 views. COMPARISON: CR XR chest 1V portable [id number] 01/21/2022 2:07 PM FINDINGS: Lungs: Unremarkable. No consolidation. Pleural spaces: Unremarkable. No pleural effusion. No pneumothorax. Heart/Mediastinum: Unremarkable. No cardiomegaly. Bones/joints: Unremarkable. Cardiac device left anterior chest in good position. XR/XR chest 2V* [id number] IMPRESSION: No acute findings. Cardiac device left anterior chest in good position
== END 2022-08-13 11:58 | disposition home or self-care (01) ==
PROVIDERS: PCP Family Medicine; Visit Provider Family Medicine
DX: R60.0 Localized edema (principal); R06.00 Dyspnea, unspecified; Z95.9 Presence of cardiac and vascular implant and graft, unspecified
CPT/HCPCS: 71046

== ENCOUNTER → 2022-10-15 11:12 | Outpatient (BNVA) | payer MEDICAID, SELFPAY | PROVIDERS: PCP Family Medicine; Visit Provider Internal Medicine Cardiovascular Disease | DX: R06.02 Shortness of breath (principal) | CPT/HCPCS: 36415; 80048; 83880; 99214 ==

== ENCOUNTER → 2023-01-14 14:53 | Outpatient (BNVA) | payer MEDICAID, SELFPAY | PROVIDERS: PCP Family Medicine; Visit Provider Family Medicine | DX: R53.83 Other fatigue (principal); R60.9 Edema, unspecified; G25.81 Restless legs syndrome; G47.00 Insomnia, unspecified; F41.8 Other specified anxiety disorders | CPT/HCPCS: 80053; 80061; 82306; 82607; 83540; 84443; 85025 ==

== ENCOUNTER → 2023-02-17 09:07 | Outpatient (BNVA) | payer MEDICARE, MEDICAID, SELFPAY | PROVIDERS: PCP Family Medicine; Visit Provider Family Medicine | DX: R30.0 Dysuria (principal) | CPT/HCPCS: 81000 ==

== ENCOUNTER 2023-02-20 18:21 | Emergency (ER) | payer MEDICARE, MEDICAID, SELFPAY ==
[2023-02-20 18:24] VITALS: BP 136/64; PULSE 74; RESP 20; TEMP 36.7; O2SAT 97
--- NOTE | 2023-02-20 18:26 | XRR_ITS ---
PROCEDURE INFORMATION: Exam: XR Chest Exam date and time: 02/20/2023 6:54 PM Age: 77 years old Clinical indication: Pain; Chest pressure; Additional info: Cp TECHNIQUE: Imaging protocol: Radiologic exam of the chest. Views: 1 view. COMPARISON: CR XR chest 2V* [id number] 08/13/2022 12:20 PM FINDINGS: Tubes, catheters and devices: Intact multi lead left subclavian pacemaker. Lungs: Mild linear atelectasis or scar in the left mid lung. The lungs otherwise are clear. Shallow inspiration. Pleural spaces: Unremarkable. No pleural effusion. No pneumothorax. Heart/Mediastinum: The heart size is upper normal. Bones/joints: Rightward thoracic curvature. No fracture visualized. XR/XR chest 1V portable [id number] IMPRESSION: No acute findings.
--- NOTE | 2023-02-20 18:27 | ECG_ITS ---
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 Measurements Intervals [place] Rate: 75 P: 0 IA: 0 QRS: 233 QRSD: 165 T: 83 QT: 436 QTc: 490 Interpretive Statements SINUS RHYTHM ELECTRONIC VENTRICULAR PACEMAKER ABNORMAL RHYTHM ECG Compared to ECG 07/03/2022 05:00:58 No significant changes Electronically Signed On 02-20-2023 21:28:22 CDT by Gaby Perez M.D. [id number]
--- NOTE | 2023-02-20 18:54 | W.ED.CHESTPA ---
HPI - Chest Pain General: Chief Complaint: Chest Pain Stated Complaint: chest pain Time Seen by Provider: 02/20/23 18:24 History of Present Illness: 77-year-old female with a history of heart failure. She presents with chest discomfort and shortness of breath. She notes a 35 pound weight gain over the last month or so. She saw her doctor earlier in the week, and was short of breath there. She states that her doctor wanted to admit her at that point. Prior to arrival today, she has had 3 nitroglycerin and aspirin with relief of her chest discomfort, but she still having shortness of breath. She wears 3 L at home, which she is on now. She states she has had a cough with some sputum production that is yellow to green. MD complaint: chest pain Pertinent past history: other Onset (ago): hour(s) Timing of current episode: now resolved Prior episodes: Yes Pain location: substernal Pain radiation: none Relieving factors: nitroglycerin Exacerbating factors: exertion Associated symptoms: Reports dyspnea, leg edema, nausea and palpitations; Deny abdominal pain, diaphoresis, fever(s) or vomiting Treatment prior to arrival: aspirin, nitroglycerin and oxygen Review of Systems Const: Denies: fever(s) or diaphoresis ENMT: Denies: throat pain Card: Reports: chest pain and palpitations Resp: Reports: dyspnea and productive cough GI: Reports: nausea; Denies: abdominal pain or vomiting Psych: Reports: anxiety PFS ED PFSH: Medical History Anxiety Arthritis Atrial fibrillation Chronic anticoagulation Chronic atrial fibrillation COPD (chronic obstructive pulmonary disease) Depression High risk medication use History of pacemaker Hypertension Hypertension, benign essential, age 0-18 ICD (implantable cardioverter-defibrillator), dual, in situ Non-ischemic cardiomyopathy AIDEN (obstructive sleep apnea) Restless leg syndrome Surgical History H/O cardiac radiofrequency ablation H/O: hysterectomy History of tonsillectomy Hx laparoscopic cholecystectomy Status post colonoscopy (02/28/20) diverticulosis Family History Mother CAD (coronary artery disease) Stroke Father CAD (coronary artery disease) Grandmother CAD (coronary artery disease) Cancer Grandfather CAD (coronary artery disease) Brother CAD (coronary artery disease) Sister CAD (coronary artery disease) Daughter CAD (coronary artery disease) Diabetes Cancer Son Diabetes Other Hypertension Denies family history of Clotting disorder Dementia Chronic kidney disease (CKD) Suicide Anesthesia complication Bleeding disorder Lung disease Social History Smoking and tobacco status: former smoker Quit status (tobacco): has quit using tobacco Year quit tobacco: 1979 Alcohol intake: never Substance/Drug Use: never Lives independently: Yes Marital status: Single Current occupational status: retired Physical Exam Const: GENERAL APPEARANCE: cooperative and ill appearing; not frail appearing HENMT: COMMON NORMALS: normocephalic, atraumatic and Normal external nose present HEAD & SCALP: normocephalic and atraumatic FACE & SINUS: normal facial exam and face symmetric NOSE: Normal external nose present Eye: COMMON NORMALS: Equal, round and reactive pupils present and EOMs intact bilaterally PUPIL: Yes Equal, round and reactive pupils present Neck/C-Spine: GENERAL: Yes trachea midline Chest: CHEST: Yes Symmetrical chest wall rise Resp: COMMON NORMALS: clear to auscultation bilaterally EFFORT & INSPECTION: No able to speak in complete sentences and Yes labored AUSCULTATION: clear to auscultation bilaterally and diminished lung sounds Cardio: COMMON NORMALS: regular rate and regular rhythm RATE: regular rate RHYTHM: regular rhythm GI: COMMON NORMALS: Normal to inspection, nondistended, normoactive bowel sounds present Extremity: GENERAL: Yes edema (3+) Neuro: ALIA COMA SCALE: document GCS findings Alia coma scale eye opening: Spontaneous [place] coma scale verbal response: Orientated Alia coma scale motor response: Obey commands [place] coma scale total score: 15 SENSORY EXAM: Yes extremities (intact) Psych: COMMON NORMALS: speech normal SPEECH: Yes normal speech Skin: COMMON NORMALS: no rashes or lesions noted GENERAL SKIN EXAM: no rashes or lesions noted Course Vital Signs: Vital signs: Vital Signs Temperature 98.1 F 02/20/23 21:57 Pulse Rate 71 02/20/23 21:57 Respiratory Rate 16 02/20/23 21:57 Blood Pressure 137/68 02/20/23 21:57 Pulse Oximetry 95 02/20/23 21:57 Oxygen Delivery Me thod Nasal Cannula 02/20/23 18:24 Oxygen Flow Rate 3 07/14/23 18:24 MDM - Chest Pain Medical Decision Making The patient's chest pain is resolved. Her blood pressure is quite good. She is oxygenating well on her home 3 L of oxygen. CBC is normal. BMP shows a creatinine of 1.2 and BUN of 38. Her BNP is 599. Troponin is stable at 9 at 2 hours. Chest x-ray is negative. She was given IV Bumex, and has urinated 3 times, substantial amount. With improvement in her symptoms, no increased need for oxygen, negative cardiac enzymes, no acute ST changes on EKG, she will be allowed home. Lab Data 02/20/23 18:31 02/20/23 18: Radiology Impressions Chest X-Ray 02/20/23 18: IMPRESSION: No acute findings. Laboratory Results WBC 6.4 10^3/uL (4.0-10.0) 02/20/23 18: RBC 3.55 10^6/uL (4.1-5.3) L 02/20/23 18: Hgb 11.8 g/dL (11.5-15.3) 02/20/23 18: Hct 36.7 % (37.0-47.0) L 02/20/23 18: MCV 103.4 fl (81-99) H 02/20/23 18: MCH 33.2 pg (28.0-34.0) 02/20/23 18: MCHC 32.2 g/dL (30.0-36.0) 02/20/23 18: RDW 13.6 % (12.1-15.1) 02/20/23 18: Plt Count 265 10^3/cmm (130-400) 02/20/23 18: MPV 8.2 fL (7.4-10.4) 02/20/23 18: Neut % (Auto) 39.2 % 02/20/23 18: Lymph % (Auto) 46.6 % 02/20/23 18: [place] % (Auto) 8.6 % 02/20/23 18: Eos % (Auto) 4.5 % 02/20/23 18: Baso % (Auto) 0.9 % 02/20/23 18:31 Neut # (Auto) 2.50 10^3/uL (1.8-7.7) 02/20/23 18:31 Lymph # (Auto) 3.0 10^3/uL (0.8-4.8) 02/20/23 18:31 [place] # (Auto) 0.6 10^3/uL (0.2-0.9) 02/20/23 18:31 Eos # (Auto) 0.3 10^3/uL (0.0-0.8) 02/20/23 18: Baso # (Auto) 0.1 10^3/uL (0.0-0.1) 02/20/23 18: Nucleated RBC % (auto) 0 % 02/20/23 18: Nucleated RBCs # 0.0 /100WBC 02/20/23 18: PT 13.40 SECONDS (12.1-14.9) 02/20/23 18:31 INR 0.99 (0.8-1.2) 02/20/23 18: APTT 29.6 SECONDS (23.9-36.7) 02/20/23 18:31 Sodium 138 mmol/L (136-145) 02/20/23 18:31 Potassium 4.6 mmol/L (3.5-5.1) 02/20/23 18:31 Chloride 102 mmol/L (98-107) 02/20/23 18: Carbon Dioxide 23 mmol/L (22-29) 02/20/23 18:31 Anion Gap 17.6 (5-19) 02/20/23 18:31 BUN 38 mg/dL (8-23) H 02/20/23 18:31 Creatinine 1.2 mg/dL (0.5-0.9) H 02/20/23 18:31 GFR Calculation Not Reportable 02/20/23 18: Glucose 107 mg/dL (65-115) 02/20/23 18: Calculated Osmolality 296 mOsm/kg (285-295) H 02/20/23 18:31 Calcium 8.9 mg/dL (8.5-10.5) 02/20/23 18:31 Total Bilirubin 0.2 mg/dL (0.15-1.2) 02/20/23 18:31 AST 22 U/L (0-32) 02/20/23 18:31 ALT 20 U/L (0-33) 02/20/23 18:31 Alkaline Phosphatase 91 U/L (35-105) 02/20/23 18:31 Creatine Kinase 147 U/L (26-192) 02/20/23 18:31 Troponin T Baseline 9 ng/L (0-10) 02/20/23 18:31 Troponin T 120 Minute 8.72 ng/L (0-10) 02/20/23 20:36 Delta Troponin T -0.28 ABS# (0-10) L 02/20/23 20:36 NT-Pro-B Natriuret Pep 599 pg/mL (0-450) H 02/20/23 18:31 Total Protein 6.9 g/dL (6.6-8.7) 02/20/23 18:31 Albumin 4.2 g/dL (3.5-5.2) 02/20/23 18:31 Globulin 2.7 g/dL (1.3-4.6) 02/20/23 18:31 Discharge Plan Discharge Patient Disposition: Home Clinical Impression: Non-ischemic cardiomyopathy Condition: Stable Prescriptions: New bumetanide 2 mg tablet 1 mg PO DAILY Qty: 5 0RF No Action fluticasone propionate [Flonase Allergy Relief] 50 mcg/actuation spray,suspension 2 spray INTRANASAL QAM gabapentin 400 mg capsule 400 mg PO QID lidocaine 5 % adhesive patch,medicated 1 patch TOPICAL DAILY lovastatin 10 mg tablet 10 mg PO BEDTIME amlodipine [Norvasc] 2.5 mg tablet 2.5 mg PO QAM pantoprazole [Protonix] 40 mg tablet,delayed release (DR/EC) 40 mg PO QAM tramadol [Ultram] 50 mg tablet 50 mg PO QID PRN (Reason: Pain) hydroxyzine pamoate [Vistaril] 25 mg capsule 25 mg PO Q8H PRN (Reason: Panic Attack(S)) Eliquis 5 mg tablet 5 mg PO BID Hold Instructions: Resume on 07/04/22. May start taking the medicine tomorrow morning multivitamin Tablet 1 tab PO DAILY calcium carbonate-vitamin D3 600 mg-10 mcg (400 unit) capsule 1 cap PO DAILY fluticasone propion-salmeterol [Advair Diskus] 250-50 mcg/dose blister with device 1 inh inhalation Q12H diphenhydramine HCl [Benadryl] 25 mg capsule 25 mg PO TID PRN (Reason: Insomnia) acetaminophen-codeine 300-30 mg tablet 1 tab PO Q6H Qty: 20 0RF Fleet Enema 19-7 gram/118 mL enema 118 ml [place] DAILY PRN (Reason: constipation) Qty: 532 3RF diclofenac sodium 1 % gel 2 - 4 g topical QID PRN (Reason: Pain) Qty: 100 3RF trazodone 50 mg tablet 50 mg PO BEDTIME Qty: 30 3RF ergocalciferol (vitamin D2) 1,250 mcg (50,000 unit) capsule 1,250 mcg PO .weekly Qty: 12 2RF buspirone 10 mg tablet 10 mg PO TID Qty: 90 1RF nitroglycerin 0.4 mg tablet, sublingual 0.4 mg SUBLINGUAL Q5M PRN (Reason: chest pain) 30 Days Qty: 30 3RF Rx Instructions: until response; do not exceed 3 doses per episode amiodarone 200 mg tablet 200 mg PO QAM Qty: 90 3RF Entresto 97-103 mg tablet See Rx Instructions .ROUTE .COMPLEX Qty: 180 3RF Dose Instruction: TAKE ONE TABLET BY MOUTH TWICE DAILY Rx Instructions: TAKE ONE TABLET BY MOUTH TWICE DAILY potassium chloride 10 mEq capsule, extended release See Rx Instructions .ROUTE .COMPLEX Qty: 30 3RF Dose Instruction: TAKE ONE CAPSULE BY MOUTH DAILY Rx Instructions: TAKE ONE CAPSULE BY MOUTH DAILY duloxetine 60 mg capsule,delayed release(DR/EC) See Rx Instructions .ROUTE .COMPLEX Qty: 60 3RF Dose Instruction: TAKE ONE CAPSULE BY MOUTH TWICE DAILY Rx Instructions: TAKE ONE CAPSULE BY MOUTH TWICE DAILY ropinirole 3 mg tablet See Rx Instructions .ROUTE .COMPLEX Qty: 30 3RF Dose Instruction: TAKE ONE TABLET BY MOUTH At Bedtime Rx Instructions: TAKE ONE TABLET BY MOUTH At Bedtime torsemide 20 mg tablet See Rx Instructions .ROUTE .COMPLEX Qty: 60 3RF Dose Instruction: TAKE TWO TABLETS BY MOUTH DAILY Rx Instructions: TAKE TWO TABLETS BY MOUTH DAILY montelukast 10 mg tablet 10 mg PO BEDTIME Vitamin B-12 2 tab PO QAM folic acid 1 mg Tablet 1 mg PO DAILY Hair,Skin and Nails Tablet 1 tab PO DAILY albuterol sulfate 90 mcg/actuation HFA aerosol inhaler 2 inh INHALATION Q4H PRN (Reason: shortness of breath or wheezing) Qty: 18 0RF Discharge Orders: Discharge ED (Routine); Ordered 02/20/23 Ordered By: Danish Stevens Referrals: Nat Wagner MD [Primary Care Provider] - Patient Instructions: Heart Failure (ED), Chest Pain (ED) Activity Restrictions/Additional Instructions: Medication daily for the next 5 days. You should have your potassium checked on Thursday if possible. Return for worsening shortness of breath, chest discomfort, any other concerning symptoms despite treatment. Coding Level of Care Code ED Pin Game Machine Inspector for Nito Rizvi
[2023-02-20 18:56] LABS: Basophils # 0.1 10^3/uL (0.0-0.1); Basophils % 0.9 %; Eosinophils # 0.3 10^3/uL (0.0-0.8); Eosinophils % 4.5 %; Hematocrit 36.7 % (37.0-47.0); Hemoglobin 11.8 g/dL (11.5-15.3); Lymphocytes % 46.6 %; Mean Corpuscular HGB Conc 32.2 g/dL (30.0-36.0); Mean Corpuscular Hemoglobin 33.2 pg (28.0-34.0); Mean Corpuscular Volume 103.4 fl (81-99); Mean Platelet Volume 8.2 fL (7.4-10.4); Monocytes # 0.6 10^3/uL (0.2-0.9); Monocytes % 8.6 %; Neutrophils % 39.2 %; Nucleated Red Blood Cells % 0 %; Platelet Count 265 10^3/cmm (130-400); Red Blood Count 3.55 10^6/uL (4.1-5.3); Red Cell Distribution Width 13.6 % (12.1-15.1); White Blood Count 6.4 10^3/uL (4.0-10.0)
[2023-02-20 19:08] LABS: INR 0.99 (0.8-1.2)
[2023-02-20 19:09] LABS: Partial Thromboplastin Time 29.6 SECONDS (23.9-36.7)
[2023-02-20] MEDS: bumetanide 0.25 mg/mL SDV 4 mL 1 MG IVP (19:15)
[2023-02-20] MEDS: nitroglycerin 1 gm/inch oint Pkt 1 INCH TOPICAL (19:19)
[2023-02-20 19:26] LABS: Alanine Aminotransferase 20 U/L (0-33); Albumin Level 4.2 g/dL (3.5-5.2); Alkaline Phosphatase 91 U/L (35-105); Anion Gap 17.6 (5-19); Aspartate Amino Transferase 22 U/L (0-32); Blood Urea Nitrogen 38 mg/dL (8-23); Calcium 8.9 mg/dL (8.5-10.5); Carbon Dioxide 23 mmol/L (22-29); Chloride 102 mmol/L (98-107); Creatine Phosphokinase 147 U/L (26-192); Globulin 2.7 g/dL (1.3-4.6); Glucose 107 mg/dL (65-115); NT Pro B Type Natriuretic Pept 599 pg/mL (0-450); Osmolality Calculated 296 mOsm/kg (285-295); Potassium 4.6 mmol/L (3.5-5.1); Sodium 138 mmol/L (136-145); Total Bilirubin 0.2 mg/dL (0.15-1.2); Total Protein 6.9 g/dL (6.6-8.7)
[2023-02-20 19:30] VITALS: BP 106/62; PULSE 84; RESP 16; O2SAT 94
[2023-02-20 19:57] LABS: Troponin(5th) Baseline 9 ng/L (0-10)
--- NOTE | 2023-02-20 20:03 | ECG_ITS ---
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 Measurements Intervals [place] Rate: 71 P: 0 [place]: 0 QRS: 212 QRSD: 170 T: 68 QT: 450 QTc: 490 Interpretive Statements ELECTRONIC VENTRICULAR PACEMAKER ABNORMAL RHYTHM ECG Compared to ECG 02/20/2023 18:27:15 No significant changes Electronically Signed On 02-20-2023 21:33:55 CDT by Gaby Perez M.D. [id number]
[2023-02-20 20:06] VITALS: BP 155/81; PULSE 80; RESP 16; O2SAT 96
[2023-02-20 21:00] VITALS: BP 137/68; PULSE 71; RESP 16; O2SAT 95
[2023-02-20 21:05] LABS: Troponin 5 2HR 8.72 ng/L (0-10)
[2023-02-20 21:35] LABS: Troponin 5 2HR Delta -0.28 ABS# (0-10)
[2023-02-20 21:57] VITALS: BP 137/68; PULSE 71; RESP 16; TEMP 36.7; O2SAT 95
== END 2023-02-20 21:58 | disposition home or self-care (01) ==
PROVIDERS: Emergency Provider Emergency Medicine; PCP Family Medicine
DX: I42.8 Other cardiomyopathies (principal); Z79.01 Long term (current) use of anticoagulants; J44.9 Chronic obstructive pulmonary disease, unspecified; I10 Essential (primary) hypertension; Z95.0 Presence of cardiac pacemaker; Z99.81 Dependence on supplemental oxygen
CPT/HCPCS: 36415; 71045; 80053; 82550; 83880; 84484; 85025; 85610; 85730; 93005; 96374; 99285; J3490

== ENCOUNTER → 2023-03-06 09:55 | Outpatient (BNVA) | payer MEDICARE, MEDICAID, SELFPAY | PROVIDERS: PCP Family Medicine; Visit Provider Family Medicine | DX: R60.9 Edema, unspecified (principal) | CPT/HCPCS: 80053 ==

== ENCOUNTER 2023-05-19 15:15 | Emergency (ER) | payer MEDICARE, MEDICAID, SELFPAY ==
--- NOTE | 2023-05-19 15:16 | XR_ITS ---
WS: [id number] PORTABLE CHEST HISTORY: dyspnea/cough COMPARISON: 02/20/2023 LEFT subclavian pacer/defibrillator. Lungs are clear and well expanded. No pleural effusion or pneumothorax. Cardiac size: Normal. Mediastinum/Aorta: Mild atherosclerosis aorta. No osseous abnormality seen. IMPRESSION: 1. No pneumonia. 2. Mild atherosclerosis aorta.
--- NOTE | 2023-05-19 15:16 | ECG_ITS ---
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 Measurements Intervals [place] Rate: 69 P: 0 ID: 0 QRS: 221 QRSD: 174 T: 60 QT: 485 QTc: 522 Interpretive Statements ELECTRONIC VENTRICULAR PACEMAKER Compared to ECG 02/20/2023 20:03:17 No significant changes Electronically Signed On 05-19-2023 16:25:25 CDT by Gregg Blanco M.D. [id number]
[2023-05-19 15:17] VITALS: BP 135/56; PULSE 73; RESP 24; TEMP 36.9; O2SAT 100; BMI 35.4
--- NOTE | 2023-05-19 15:21 | W.ED.SOB ---
HPI - SOB/Dyspnea General: Chief Complaint: Shortness of Breath/Dyspnea Stated Complaint: sob Time Seen by Provider: 05/19/23 15:16 Source: patient Mode of arrival: ambulatory History of Present Illness: HPI Narrative: 77-year-old female with a history of COPD and congestive heart failure presents emergency room complaining of shortness of breath. Increasing shortness of breath and edema for the last couple of days she also having fever nausea vomiting and diarrhea denies any chest pain. Patient has a nonischemic cardiomyopathy has an ICD in place. She reports she had a temp up to 102 yesterday. She is normally on oxygen at 3 L/min and satting normally on that at this time. MD elicited complaint: shortness of breath and cough Pertinent past history: COPD and congestive heart failure Associated symptoms: Deny abdominal pain, chest pain or fever(s) Review of Systems Const: Denies: fever(s) or chills Card: Denies: chest pain Resp: Denies: dyspnea GI: Denies: abdominal pain : Denies: dysuria, urinary frequency or urinary urgency Musc: Denies: neck pain or back pain Skin/Breast: Denies: rash PFSH ED PFSH: Medical History Anxiety Arthritis Atrial fibrillation Chronic anticoagulation Chronic atrial fibrillation COPD (chronic obstructive pulmonary disease) Depression High risk medication use History of pacemaker Hypertension Hypertension, benign essential, age 0-18 ICD (implantable cardioverter-defibrillator), dual, in situ Non-ischemic cardiomyopathy AIDEN (obstructive sleep apnea) Restless leg syndrome Surgical History H/O cardiac radiofrequency ablation H/O: hysterectomy History of tonsillectomy Hx laparoscopic cholecystectomy Status post colonoscopy (02/28/20) diverticulosis Family History Mother CAD (coronary artery disease) Stroke Father CAD (coronary artery disease) Grandmother CAD (coronary artery disease) Cancer Grandfather CAD (coronary artery disease) Brother CAD (coronary artery disease) Sister CAD (coronary artery disease) Daughter CAD (coronary artery disease) Diabetes Cancer Son Diabetes Other Hypertension Denies family history of Clotting disorder Dementia Chronic kidney disease (CKD) Suicide Anesthesia complication Bleeding disorder Lung disease Social History Smoking and tobacco status: former smoker Quit status (tobacco): has quit using tobacco Year quit tobacco: 1979 Alcohol intake: never Substance/Drug Use: never Lives independently: Yes Marital status: Single Current occupational status: retired Physical Exam Const: GENERAL APPEARANCE: cooperative and comfortable ORIENTATION/CONSCIOUSNESS: Yes awake, Yes oriented to person, Yes oriented to place and Yes oriented to time HENMT: COMMON NORMALS: normocephalic, atraumatic and hearing grossly normal bilaterally HEAD & SCALP: normocephalic and atraumatic Resp: COMMON NORMALS: normal respiratory effort, No retractions, No use of accessory muscles and clear to auscultation bilaterally AUSCULTATION: clear to auscultation bilaterally Cardio: COMMON NORMALS: regular rate, regular rhythm and No murmurs present (Cardio) RATE: regular rate RHYTHM: regular rhythm GI: COMMON NORMALS: Soft to palpation and No hepatosplenomegaly present AUSCULTATION: Yes normoactive bowel sounds PALPATION: Yes Soft to palpation, No Tenderness to palpation present (GI), No Guarding due to palpation present (GI) and Yes No hepatosplenomegaly present Extremity: COMMON NORMALS: normal to inspection, capillary refill normal, no clubbing, cyanosis or edema, no calf tenderness and no pedal edema Neuro: SENSORIUM/ORIENTATION: Yes oriented to person, Yes oriented to place and Yes oriented to time Skin: COMMON NORMALS: no rashes or lesions noted GENERAL SKIN EXAM: no rashes or lesions noted Course Vital Signs: Vital signs: Vital Signs Temperature 98.5 F 05/19/23 15:17 Pulse Rate 72 05/19/23 16:03 Respiratory Rate 16 05/19/23 16:00 Blood Pressure 135/56 05/19/23 15:17 Pulse Oximetry 97 05/19/23 16:00 Oxygen Delivery Me thod Nasal Cannula 05/19/23 16:00 Oxygen Flow Rate 3 05/19/23 16:00 MDM - SOB/Dyspnea Medical Decision Making Patient does have some fluid overload but does not advocate congestive heart failure at this time. I think more of her symptoms are COPD exacerbation. Will increase her torsemide to twice daily. Prednisone taper and a course of doxycycline as well use albuterol as needed. She is maintaining her oxygen sats on her usual 3 L/min. Recheck in 2 to 3 days with her primary care doctor. Medical Records I reviewed the patient's medical records. Lab Data I reviewed the patient's lab results. 05/19/23 15:36 05/19/23 15:36 Labs/Radiology: Laboratory Results WBC 6.45 10^3/uL (3.29-11.43) 05/19/23 15:36 RBC 3.64 10^6/uL (3.85-5.65) L 05/19/23 15:36 Hgb 11.90 g/dL (11.27-16.99) 05/19/23 15:36 Hct 37.2 % (36-47) 05/19/23 15:36 MCV 102.2 fl (85-98) H 05/19/23 15:36 MCH 32.7 pg (27-33) 05/19/23 15:36 MCHC 32.0 g/dL (30-55) 05/19/23 15:36 RDW 12.9 % (12.1-15.1) 05/19/23 15:36 Plt Count 264 10^3/cmm (157-399) 05/19/23 15:36 MPV 7.9 fL (7.4-10.4) 05/19/23 15:36 Neut % (Auto) 44.0 % 05/19/23 15:36 Lymph % (Auto) 42.6 % 05/19/23 15:36 [place] % (Auto) 10.7 % 05/19/23 15:36 Eos % (Auto) 1.7 % 05/19/23 15:36 Baso % (Auto) 0.8 % 05/19/23 15:36 Neut # (Auto) 2.84 10^3/uL (1.8-7.7) 05/19/23 15:36 Lymph # (Auto) 2.8 10^3/uL (0.8-4.8) 05/19/23 15:36 [place] # (Auto) 0.7 10^3/uL (0.2-0.9) 05/19/23 15:36 Eos # (Auto) 0.1 10^3/uL (0.0-0.8) 05/19/23 15:36 Baso # (Auto) 0.1 10^3/uL (0.0-0.1) 05/19/23 15:36 Nucleated RBC % (auto) 0 % 05/19/23 15:36 Nucleated RBCs # 0.0 /100WBC 05/19/23 15:36 Sodium 132 mmol/L (136-145) L 05/19/23 15:36 Potassium 4.5 mmol/L (3.5-5.1) 05/19/23 15:36 Chloride 94 mmol/L (98-107) L 05/19/23 15:36 Carbon Dioxide 26 mmol/L (22-29) 05/19/23 15:36 Anion Gap 16.5 (5-19) 05/19/23 15:36 BUN 23 mg/dL (8-23) 05/19/23 15:36 Creatinine 1.0 mg/dL (0.5-0.9) H 05/19/23 15:36 GFR Calculation Not Reportable 05/19/23 15:36 Glucose 114 mg/dL (65-115) 05/19/23 15:36 Calculated Osmolality 279 mOsm/kg (285-295) L 05/19/23 15:36 Calcium 9.5 mg/dL (8.5-10.5) 05/19/23 15:36 Total Bilirubin 0.3 mg/dL (0.15-1.2) 05/19/23 15:36 AST 24 U/L (0-32) 05/19/23 15:36 ALT 16 U/L (0-33) 05/19/23 15:36 Alkaline Phosphatase 92 U/L (35-105) 05/19/23 15:36 Troponin T Baseline 10 ng/L (0-10) 05/19/23 15:36 NT-Pro-B Natriuret Pep 603 pg/mL (0-450) H 05/19/23 15:36 Total Protein 7.3 g/dL (6.6-8.7) 05/19/23 15:36 Albumin 4.2 g/dL (3.5-5.2) 05/19/23 15:36 Globulin 3.1 g/dL (1.3-4.6) 05/19/23 15:36 Procalcitonin 0.10 ng/mL (0-0.5) 05/19/23 15:36 Urine Color Yellow (Yellow) 05/19/23 17:26 Urine Appearance Clear (CLEAR) 05/19/23 17:26 Urine pH 9 (5-7) H 05/19/23 17:26 Ur Specific [place] 1.010 (1.005-1.030) 05/19/23 17:26 Urine Protein Neg (Negative) 05/19/23 17:26 Urine Glucose (UA) Norm (Normal) 05/19/23 17:26 Urine Ketones Negative (Negative) 05/19/23 17:26 Urine Blood Neg (Negative) 05/19/23 17:26 Urine Nitrate Negative (Negative) 05/19/23 17:26 Urine Bilirubin Neg (Negative) 05/19/23 17:26 Prot Sulfosalicylic Acd Negative (Negative) 05/19/23 17:26 Urine Urobilinogen Norm mg/dL (Negative) 05/19/23 17:26 Ur Leukocyte Esterase Negative (Negative) 05/19/23 17:26 All radiology interpretation(s) finalized by discharge Discharge Plan Discharge Patient Disposition: Home Clinical Impression: COPD exacerbation, Edema Condition: Stable Prescriptions: New doxycycline hyclate 100 mg capsule 100 mg PO BID 10 Days Qty: 20 0RF prednisone 20 mg tablet 20 mg PO TID Qty: 15 0RF Rx Instructions: 1 p.o. 3 times daily x3 days, 1 p.o. twice daily x2 days, 1 p.o. daily x2 days albuterol sulfate 90 mcg/actuation HFA aerosol inhaler 2 inh INHALATION Q4H PRN (Reason: shortness of breath or wheezing) Qty: 18 0RF No Action fluticasone propionate [Flonase Allergy Relief] 50 mcg/actuation spray,suspension 2 spray INTRANASAL QAM lidocaine 5 % adhesive patch,medicated 1 patch TOPICAL DAILY lovastatin 10 mg tablet 10 mg PO BEDTIME amlodipine [Norvasc] 2.5 mg tablet 2.5 mg PO QAM pantoprazole [Protonix] 40 mg tablet,delayed release (DR/EC) 40 mg PO QAM tramadol [Ultram] 50 mg tablet 50 mg PO QID PRN (Reason: Pain) hydroxyzine pamoate [Vistaril] 25 mg capsule 25 mg PO Q8H PRN (Reason: Panic Attack(S)) Eliquis 5 mg tablet 5 mg PO BID Hold Instructions: Resume on 07/04/22. May start taking the medicine tomorrow morning multivitamin Tablet 1 tab PO DAILY calcium carbonate-vitamin D3 600 mg-10 mcg (400 unit) capsule 1 cap PO DAILY fluticasone propion-salmeterol [Advair Diskus] 250-50 mcg/dose blister with device 1 inh inhalation Q12H diphenhydramine HCl [Benadryl] 25 mg capsule 25 mg PO TID PRN (Reason: Insomnia) diclofenac sodium 1 % gel 2 - 4 g topical QID PRN (Reason: Pain) Qty: 100 3RF trazodone 50 mg tablet 50 mg PO BEDTIME Qty: 30 3RF ropinirole 3 mg tablet See Rx Instructions .ROUTE .COMPLEX Qty: 30 3RF Dose Instruction: TAKE ONE TABLET BY MOUTH At Bedtime Rx Instructions: TAKE ONE TABLET BY MOUTH At Bedtime gabapentin 400 mg capsule 400 mg PO QID Qty: 120 3RF ergocalciferol (vitamin D2) 1,250 mcg (50,000 unit) capsule 1,250 mcg PO .weekly Qty: 12 2RF nitroglycerin 0.4 mg tablet, sublingual 0.4 mg SUBLINGUAL Q5M PRN (Reason: chest pain) 30 Days Qty: 30 3RF Rx Instructions: until response; do not exceed 3 doses per episode Entresto 97-103 mg tablet See Rx Instructions .ROUTE .COMPLEX Qty: 180 3RF Dose Instruction: TAKE ONE TABLET BY MOUTH TWICE DAILY Rx Instructions: TAKE ONE TABLET BY MOUTH TWICE DAILY amiodarone 200 mg tablet 200 mg PO QAM Qty: 60 0RF buspirone 10 mg tablet 10 mg PO TID Qty: 90 1RF torsemide 20 mg tablet See Rx Instructions .ROUTE .COMPLEX Qty: 60 3RF Dose Instruction: TAKE TWO TABLETS BY MOUTH DAILY Rx Instructions: TAKE TWO TABLETS BY MOUTH DAILY duloxetine 60 mg capsule,delayed release(DR/EC) See Rx Instructions .ROUTE .COMPLEX Qty: 60 3RF Dose Instruction: TAKE ONE CAPSULE BY MOUTH TWICE DAILY Rx Instructions: TAKE ONE CAPSULE BY MOUTH TWICE DAILY potassium chloride 10 mEq capsule, extended release See Rx Instructions .ROUTE .COMPLEX Qty: 30 3RF Dose Instruction: TAKE ONE CAPSULE BY MOUTH DAILY Rx Instructions: TAKE ONE CAPSULE BY MOUTH DAILY montelukast 10 mg tablet 10 mg PO BEDTIME Vitamin B-12 2 tab PO QAM folic acid 1 mg Tablet 1 mg PO DAILY Hair,Skin and Nails Tablet 1 tab PO DAILY albuterol sulfate 90 mcg/actuation HFA aerosol inhaler 2 inh INHALATION Q4H PRN (Reason: shortness of breath or wheezing) Qty: 18 0RF Discharge Orders: Discharge ED (Routine); Ordered 05/19/23 Ordered By: Dl Morales Referrals: Nat Wagner MD [Primary Care Provider] - Discharge Diet: Cardiac and Low Salt Discharge Activity: Limit activity as instructed Patient Instructions: Opioid Safety, Pain Management Activity Restrictions/Additional Instructions: You are seen today for complaints shortness of breath your oxygen sat was stable on your normal 3 L by nasal cannula. Recommend increasing your torsemide to 1 at 8 AM and 1 at 2 PM for the next 3 days. Also recommend steroid taper beginning tomorrow you were given an initial dose of steroids in the emergency room today. You are also given a course of antibiotics begin those this evening 1 pill twice daily until completed. Use albuterol as needed. Minimize salt in your diet follow-up with your primary care doctor within the next 7 to 10 days. Coding Level of Care Code ED Shipping Lead Person for Nito Rizvi
[2023-05-19 15:43] LABS: Basophils # 0.1 10^3/uL (0.0-0.1); Basophils % 0.8 %; Eosinophils # 0.1 10^3/uL (0.0-0.8); Eosinophils % 1.7 %; Hematocrit 37.2 % (36-47); Lymphocytes # 2.8 10^3/uL (0.8-4.8); Lymphocytes % 42.6 %; Mean Corpuscular Hemoglobin 32.7 pg (27-33); Mean Corpuscular Volume 102.2 fl (85-98); Mean Platelet Volume 7.9 fL (7.4-10.4); Monocytes # 0.7 10^3/uL (0.2-0.9); Monocytes % 10.7 %; Neutrophils # 2.84 10^3/uL (1.8-7.7); Nucleated Red Blood Cells % 0 %; Platelet Count 264 10^3/cmm (157-399); Red Blood Count 3.64 10^6/uL (3.85-5.65); Red Cell Distribution Width 12.9 % (12.1-15.1); White Blood Count 6.45 10^3/uL (3.29-11.43)
[2023-05-19 16:00] VITALS: PULSE 78; RESP 16; O2SAT 97
[2023-05-19] MEDS: ipratropium-albuterol 3 mL Neb INHALATION (16:00)
[2023-05-19 16:03] VITALS: PULSE 72
[2023-05-19 16:21] LABS: Troponin(5th) Baseline 10 ng/L (0-10)
[2023-05-19 16:29] LABS: NT Pro B Type Natriuretic Pept 603 pg/mL (0-450)
[2023-05-19 16:40] LABS: Alanine Aminotransferase 16 U/L (0-33); Albumin Level 4.2 g/dL (3.5-5.2); Alkaline Phosphatase 92 U/L (35-105); Anion Gap 16.5 (5-19); Aspartate Amino Transferase 24 U/L (0-32); Blood Urea Nitrogen 23 mg/dL (8-23); Calcium 9.5 mg/dL (8.5-10.5); Carbon Dioxide 26 mmol/L (22-29); Chloride 94 mmol/L (98-107); Globulin 3.1 g/dL (1.3-4.6); Glucose 114 mg/dL (65-115); Osmolality Calculated 279 mOsm/kg (285-295); Potassium 4.5 mmol/L (3.5-5.1); Sodium 132 mmol/L (136-145); Total Bilirubin 0.3 mg/dL (0.15-1.2); Total Protein 7.3 g/dL (6.6-8.7)
--- NOTE | 2023-05-19 17:16 | ECG_ITS ---
[facility] Test Date: 2023-05-19 Pat Name: Meryl Baldwin Department: Room: Gender: Female Unitizer: : 1945 Requested By: Dl Harman Order Number: [id number] Saritha MD: Gregg Blanco M.D. Measurements Intervals [place] Rate: 69 P: 0 WV: 0 QRS: 217 QRSD: 174 T: 74 QT: 486 QTc: 524 Interpretive Statements ELECTRONIC VENTRICULAR PACEMAKER ABNORMAL RHYTHM ECG Compared to ECG 05/19/2023 15:43:53 No significant changes Electronically Signed On 05-19-2023 23:10:03 CDT by Grgeg Blanco M.D. [id number]
[2023-05-19 17:50] LABS: Add Urine Microscopic? NO; Charge for UA Resulting for Rev
[2023-05-19 18:11] LABS: Urine Appearance Clear (CLEAR); Urine Color Yellow (Yellow)
[2023-05-19 18:12] LABS: Bilirubin Urine Neg (Negative); Blood Urine Neg (Negative); Glucose Urine UA Norm (Normal); Ketones Urine Negative (Negative); Leukocyte Esterase Urine Negative (Negative); Nitrate Urine Negative (Negative); Protein Urine Neg (Negative); Sulfosalicylic Acid Urine Negative (Negative); Urobilinogen Urine Norm (Negative); pH Urine 9 (5-7)
[2023-05-19] MEDS: dexamethasone 10 mg/mL INJ IM (18:27)
[2023-05-19 18:31] LABS: Troponin 5 2HR 10.87 ng/L (0-10)
[2023-05-19 18:39] LABS: Troponin 5 2HR Delta 0.87 ABS# (0-10)
[2023-05-19 19:04] LABS: Adenovirus Not Detected (NOT DETECT); Chlamydia Pneumoniae Not Detected (NOT DETECT); Coronavirus 229E,HKU1,NL63,OC4 Not Detected (NOT DETECT); Human Metapneumovirus Not Detected (NOT DETECT); Human Rhinovirus/Enterovirus Not Detected (NOT DETECT); Influenza A Not Detected (NOT DETECT); Influenza A H1 Not Detected (NOT DETECT); Influenza A H1-2009 Not Detected (NOT DETECT); Influenza A H3 Not Detected (NOT DETECT); Influenza B Not Detected (NOT DETECT); Mycoplasma Pneumoniae Not Detected (NOT DETECT); Parainfluenza Virus Type 1 Not Detected (NOT DETECT); Parainfluenza Virus Type 2 Not Detected (NOT DETECT); Parainfluenza Virus Type 3 Not Detected (NOT DETECT); Parainfluenza Virus Type 4 Not Detected (NOT DETECT); Respiratory Syncytial Virus A Not Detected (NOT DETECT); Respiratory Syncytial Virus B Not Detected (NOT DETECT); SARS-COV-2 Not Detected (NOT DETECT)
[2023-05-19 20:25] VITALS: PULSE 77; O2SAT 96
== END 2023-05-19 19:18 | disposition home or self-care (01) ==
PROVIDERS: Emergency Provider Family Medicine; PCP Family Medicine
DX: J44.1 Chronic obstructive pulmonary disease with (acute) exacerbation (principal); R60.0 Localized edema; Z79.01 Long term (current) use of anticoagulants; Z87.891 Personal history of nicotine dependence; Z95.0 Presence of cardiac pacemaker; I10 Essential (primary) hypertension; Z11.52 Encounter for screening for COVID-19
CPT/HCPCS: 36415; 71045; 80053; 81003; 83880; 84145; 84484; 85025; 87635; 93005; 94640; 96372; 99285; J1100

== ENCOUNTER → 2023-06-19 11:04 | Outpatient (BNVA) | payer MEDICARE, MEDICAID, SELFPAY | PROVIDERS: PCP Family Medicine; Visit Provider Internal Medicine Cardiovascular Disease | DX: Z45.02 Encounter for adjustment and management of automatic implantable cardiac defibrillator (principal) | CPT/HCPCS: 93296 ==

== ENCOUNTER 2023-08-08 19:36 | Observation (INO) | payer MEDICARE, MEDICAID, SELFPAY ==
[2023-08-08] VITALS (11 sets, daily range): BP systolic 108–144; BP diastolic 54–69; PULSE 70–78; RESP 16–25; TEMP 37.2–37.9; O2SAT 88–98; BMI 28.3; BMI 36.6
--- NOTE | 2023-08-08 19:43 | XRR_ITS ---
PROCEDURE INFORMATION: Exam: XR Chest Exam date and time: 08/08/2023 8:01 PM Age: 77 years old Clinical indication: Chest pressure; Patient HX: Chest pain TECHNIQUE: Imaging protocol: Radiologic exam of the chest. Views: 1 view. COMPARISON: CR XR chest 1V portable [id number] 05/19/2023 3:25 PM FINDINGS: Tubes, catheters and devices: Left chest AICD device is in good projection, unchanged. Lungs: Dependent bibasilar atelectasis, less likely with component of consolidation. Pleural spaces: No pleural effusion. No pneumothorax. Heart/Mediastinum: Cardiac silhouette is mildly enlarged. Atherosclerotic calcifications in the thoracic aorta. There is no mediastinal widening. Bones/joints: No acute fractures. XR/XR chest 1V portable [id number] IMPRESSION: 1. Dependent bibasilar atelectasis, less likely with component of consolidation. 2. Cardiac silhouette is mildly enlarged.
--- NOTE | 2023-08-08 19:44 | ECG_ITS ---
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 Measurements Intervals [place] Rate: 82 P: -68 NM: 75 QRS: 269 QRSD: 90 T: 0 QT: 384 QTc: 449 Interpretive Statements ELECTRONIC ATRIAL PACEMAKER RIGHT AXIS DEVIATION [QRS AXIS > 100] LOW QRS VOLTAGE [QRS DEFLECTION < 0.5/1.0 mV IN LIMB/CHEST LEADS] POSSIBLE RIGHT VENTRICULAR CONDUCTION DELAY [RSR (QR) IN V1/V2] ANTEROLATERAL MYOCARDIAL INFARCTION ,AGE INDETERMINATE Compared to ECG 05/19/2023 17:57:26 Right-axis deviation now present Low QRS voltage now present Myocardial infarct finding now present Ventricular-paced complex(es) or rhythm no longer present Electronically Signed On 08-09-2023 10:19:51 RAILWAY SWITCHMAN by Gregg Blanco M.D. [id number]
--- NOTE | 2023-08-08 19:48 | ECG_ITS ---
[facility] Test Date: 2023-08-08 Pat Name: Meryl Baldwin Department: Room: Gender: Female Business Applications Developer: : 1945 Requested By: Edward Capellan Order Number: [id number] Saritha MD: Gregg Blanco M.D. Measurements Intervals [place] Rate: 81 P: -48 VT: 151 QRS: 262 QRSD: 90 T: 0 QT: 332 QTc: 385 Interpretive Statements PACED ATRIAL RHYTHM POSSIBLE LEFT ATRIAL ENLARGEMENT [-0.1mV P-WAVE IN V1/V2] RIGHT AXIS DEVIATION [QRS AXIS > 100] LOW QRS VOLTAGE [QRS DEFLECTION < 0.5/1.0 mV IN LIMB/CHEST LEADS] POSSIBLE RIGHT VENTRICULAR CONDUCTION DELAY [RSR (QR) IN V1/V2] ANTERIOR MYOCARDIAL INFARCTION , AGE INDETERMINATE MARKED ST ELEVATION, AGE INDETERMINATE Compared to ECG 08/08/2023 19:44:36 Atrial-paced complex(es) or rhythm no longer present Myocardial infarct finding still present Electronically Signed On 08-09-2023 10:19:37 PERSONNEL AND PAYROLL TECHNICIAN by Gregg Blanco M.D. [id number]
--- NOTE | 2023-08-08 19:50 | W.ED.CHESTPA ---
HPI - Chest Pain General: Chief Complaint: Chest Pain Stated Complaint: vertigo, weakness, CP Time Seen by Provider: 08/08/23 19:41 History of Present Illness: Patient presents to the ER with complaints of cough congestion chest pain. Patient stated today about 4 PM her chest really hurt and had a lot of pressure and it and she was weak and dizzy. Patient [place] any nausea vomiting shortness of breath. Patient does have a history of nonischemic cardiomyopathy and has a pacemaker defibrillator. Patient still has some chest pressure which she rates as mild here in ER. Patient does have a temperature of 100.2 here in ER. Patient describes his pressure as sternal pressure that does not radiate. Patient does state that pressure is worse when someone is pushing on her chest. Patient is sitting up on the bed texting on her phone during part of the exam and appears in no acute distress. Patient is currently on Eliquis. Review of Systems General: Reports: 10 or more systems reviewed and unremarkable except in HPI and below PFSH ED PFSH: Medical History Hypertension, benign essential, age 0-18 High risk medication use Non-ischemic cardiomyopathy ICD (implantable cardioverter-defibrillator), dual, in situ Chronic atrial fibrillation Chronic anticoagulation Restless leg syndrome Hypertension History of pacemaker Depression Anxiety Atrial fibrillation Arthritis AIDEN (obstructive sleep apnea) COPD (chronic obstructive pulmonary disease) Surgical History Status post colonoscopy (02/28/20) diverticulosis H/O cardiac radiofrequency ablation Hx laparoscopic cholecystectomy History of tonsillectomy H/O: hysterectomy Family History Mother CAD (coronary artery disease) Stroke Father CAD (coronary artery disease) Grandmother CAD (coronary artery disease) Cancer Grandfather CAD (coronary artery disease) Brother CAD (coronary artery disease) Sister CAD (coronary artery disease) Daughter CAD (coronary artery disease) Diabetes Cancer Son Diabetes Other Hypertension Denies family history of Clotting disorder Dementia Chronic kidney disease (CKD) Suicide Anesthesia complication Bleeding disorder Lung disease Social History Smoking and tobacco/nicotine status: former use of tobacco/nicotine Quit status (tobacco/nicotine): has quit using Year quit tobacco: 1979 Alcohol intake: never Substance/Drug Use: never Lives independently: Yes Marital status: Single Current occupational status: retired Physical Exam Const: COMMON NORMALS: no acute distress, average body habitus, patient oriented x3, no limitations, healthy appearing, alert and well nourished HENMT: COMMON NORMALS: normocephalic, atraumatic, hearing grossly normal bilaterally, external ears normal, Normal external nose present, moist oral mucous membranes and oropharynx normal HEAD & SCALP: normocephalic and atraumatic NOSE: Normal external nose present EXTERNAL EAR: Yes external ears normal Neck/C-Spine: COMMON NORMALS: full ROM, no lymphadenopathy, supple, no meningeal signs, no JVD and Thyroid normal THYROID: Thyroid normal Chest: COMMONS NORMALS: normal inspection of the chest; negative for normal palpation of entire chest wall (Chest pressure worsens with palpation of the chest.) Resp: COMMON NORMALS: normal respiratory effort, No retractions, No use of accessory muscles and clear to auscultation bilaterally AUSCULTATION: clear to auscultation bilaterally Cardio: COMMON NORMALS: no JVD, regular rate, regular rhythm, S1 normal heart sound present, S2 normal heart sound present, No gallops present (Cardio), No clicks present (Cardio), No murmurs present (Cardio) and No rub (Cardio) RATE: regular rate RHYTHM: regular rhythm HEART SOUNDS: S1 normal heart sound present and S2 normal heart sound present GI: COMMON NORMALS: Normal to inspection, nondistended, normoactive bowel sounds present, Soft to palpation, non-tender, No hepatosplenomegaly present and no masses PALPATION: Yes Soft to palpation and Yes No hepatosplenomegaly present Neuro: COMMON NORMALS: patient oriented x3 SENSORIUM/ORIENTATION: Yes alert MENINGEAL SIGNS: Yes no meningeal signs Course Vital Signs: Vital signs: Vital Signs Temperature 98.7 F 08/09/23 08:00 Pulse Rate 70 08/09/23 08:00 Respiratory Rate 19 H 08/09/23 08:00 Blood Pressure 113/55 08/09/23 08:00 Pulse Oximetry 94 08/09/23 08:00 Oxygen Delivery Me thod Nasal Cannula 08/09/23 08:00 Oxygen Flow Rate 3 08/08/23 22:52 MDM - Chest Pain Medical Decision Making Send EKG to Dr. Estevez immediately and discussed the case with him he said very hard to diagnose a STEMI with a paced rhythm but repeat an EKG in 5 minutes and get routine troponins and if patient's pain increases at any time go ahead and activate Fusing Machine Operator. 3rd EKG was obtained which is very similar to the first 2. Patient rates her pressure as mild with no improvement or worsening since coming to the ER. Patient will have 1 inch Nitropaste placed on chest. Since we added the Nitropaste onto the patient patient says she is almost pain-free. Pacemaker was interpreted which did show discharge due to a V. tach of 222 beats minute at approximately 1757 as well as a antitacky therapy at 1711. Dr. Garcia came to the ER to evaluate the patient. He said since the patient is doing well we will wait for the second troponin and is if it is in the 100 such as 7-800 she will go to Fusing Machine Operator but if it significantly lower than at and she still pain-free we may place her on a nitro drip and treat her medically. Troponin come back approximately 26 for delta of approximately 1. Patient still pain-free at this time. Dr. Felder was consulted who agreed to place the patient in [facility]SU for further evaluation and treatment. Differential Diagnosis Unlikely acute massive pulmonary embolism, acute respiratory failure, acute myocardial infarction, cardiac arrest or sudden cardiac Medical Records I reviewed the patient's medical records. Lab Data I reviewed the patient's lab results. 08/09/23 01:26 08/09/23 01:26 Radiology Impressions Chest X-Ray 08/08/23 19:43 IMPRESSION: 1. Dependent bibasilar atelectasis, less likely with component of consolidation. 2. Cardiac silhouette is mildly enlarged. Laboratory Results WBC 12.90 10^3/uL (3.29-11.43) H 08/08/23 20:01 RBC 3.67 10^6/uL (3.85-5.65) L 08/08/23 20:01 Hgb 12.30 g/dL (11.27-16.99) 08/08/23 20:01 Hct 37.1 % (36-47) 08/08/23 20:01 MCV 101.1 fl (85-98) H 08/08/23 20:01 MCH 33.5 pg (27-33) H 08/08/23 20:01 MCHC 33.2 g/dL (30-55) 08/08/23 20:01 RDW 13.8 % (12.1-15.1) 08/08/23 20:01 Plt Count 184 10^3/cmm (157-399) 08/08/23 20:01 MPV 8.4 fL (7.4-10.4) 08/08/23 20:01 Neut % (Auto) 75.3 % 08/08/23 20:01 Lymph % (Auto) 15.0 % 08/08/23 20:01 [place] % (Auto) 8.8 % 08/08/23 20:01 Eos % (Auto) 0.2 % 08/08/23 20:01 Baso % (Auto) 0.5 % 08/08/23 20:01 Neut # (Auto) 9.72 10^3/uL (1.8-7.7) H 08/08/23 20:01 Lymph # (Auto) 1.9 10^3/uL (0.8-4.8) 08/08/23 20:01 [place] # (Auto) 1.1 10^3/uL (0.2-0.9) H 08/08/23 20:01 Eos # (Auto) 0.0 10^3/uL (0.0-0.8) 08/08/23 20:01 Baso # (Auto) 0.1 10^3/uL (0.0-0.1) 08/08/23 20:01 Nucleated RBC % (auto) 0 % 08/08/23 20:01 Nucleated RBCs # 0.0 /100WBC 08/08/23 20:01 PT 16.40 SECONDS (12.1-14.9) H 08/08/23 20:01 INR 1.27 (0.8-1.2) H 08/08/23 20:01 Sodium 134 mmol/L (136-145) L 08/08/23 20:01 Potassium 4.0 mmol/L (3.5-5.1) 08/08/23 20:01 Chloride 98 mmol/L (98-107) 08/08/23 20:01 Carbon Dioxide 25 mmol/L (22-29) 08/08/23 20:01 Anion Gap 15.0 (5-19) 08/08/23 20:01 BUN 17 mg/dL (8-23) 08/08/23 20:01 Creatinine 0.9 mg/dL (0.5-0.9) 08/08/23 20:01 GFR Calculation Not Reportable 08/08/23 20:01 Glucose 131 mg/dL (65-115) H 08/08/23 20:01 Calculated Osmolality 281 mOsm/kg (285-295) L 08/08/23 20:01 Calcium 9.5 mg/dL (8.5-10.5) 08/08/23 20:01 Magnesium 1.5 mg/dL (1.7-2.3) L 08/08/23 20:01 Total Bilirubin 1.3 mg/dL (0.15-1.2) H 08/08/23 20:01 AST 29 U/L (0-32) 08/08/23 20:01 ALT 17 U/L (0-33) 08/08/23 20:01 Alkaline Phosphatase 87 U/L (35-105) 08/08/23 20:01 Troponin T Baseline 25 ng/L (0-10) H 08/08/23 20:01 Troponin T 120 Minute 26.27 ng/L (0-10) H 08/08/23 21:30 Delta Troponin T 1.27 ABS# (0-10) 08/08/23 21:30 NT-Pro-B Natriuret Pep 95689 pg/mL (0-450) H 08/08/23 20:01 Total Protein 6.9 g/dL (6.6-8.7) 08/08/23 20:01 Albumin 4.1 g/dL (3.5-5.2) 08/08/23 20:01 Globulin 2.8 g/dL (1.3-4.6) 08/08/23 20:01 Influenza Type A Ag Negative (Negative) 08/08/23 20:26 Influenza Type B Ag Negative (Negative) 08/08/23 20:26 SARS-CoV-2 Ag (Rapid) negative (Negative) 08/08/23 20:26 All radiology interpretation(s) finalized by discharge Discharge Plan Discharge Patient Disposition: Admitted As Inpatient Admit Provider: Francesca Felder Clinical Impression: Chest pain, Fever, Implantable cardioverter-defibrillator (ICD) discharge, Cardiomyopathy, nonischemic, Hypomagnesemia Condition: Stable Coding Level of Care Code ED Clinical Program Consultant for Nito Rizvi
--- NOTE | 2023-08-08 20:05 | ECG_ITS ---
[facility] Test Date: 2023-08-08 Pat Name: Meryl Baldwin Department: Room: Gender: Female Research Associate: : 1945 Requested By: Edward Capellan Order Number: [id number] Saritha MD: Gregg Blanco M.D. Measurements Intervals [place] Rate: 70 P: -86 MO: 75 QRS: 233 QRSD: 94 T: -16 QT: 388 QTc: 420 Interpretive Statements ELECTRONIC ATRIAL PACEMAKER POSSIBLE RIGHT VENTRICULAR HYPERTROPHY [SOME/ALL OF: PROMINENT R IN V1, LATE TRANSITION, RAD, UMM, SSS] ANTEROLATERAL MYOCARDIAL INFARCTION , AGE INDETERMINATE Compared to ECG 08/08/2023 19:48:11 Ectopic atrial rhythm no longer present Right-axis deviation no longer present ST (T wave) deviation no longer present Myocardial infarct finding still present Electronically Signed On 08-09-2023 10:18:54 ICT TEACHER by Gregg Blanco M.D. [id number]
[2023-08-08 20:07] LABS: Basophils # 0.1 10^3/uL (0.0-0.1); Basophils % 0.5 %; Eosinophils % 0.2 %; Hematocrit 37.1 % (36-47); Lymphocytes # 1.9 10^3/uL (0.8-4.8); Mean Corpuscular HGB Conc 33.2 g/dL (30-55); Mean Corpuscular Hemoglobin 33.5 pg (27-33); Mean Corpuscular Volume 101.1 fl (85-98); Mean Platelet Volume 8.4 fL (7.4-10.4); Monocytes # 1.1 10^3/uL (0.2-0.9); Monocytes % 8.8 %; Neutrophils # 9.72 10^3/uL (1.8-7.7); Neutrophils % 75.3 %; Nucleated Red Blood Cells % 0 %; Platelet Count 184 10^3/cmm (157-399); Red Blood Count 3.67 10^6/uL (3.85-5.65); Red Cell Distribution Width 13.8 % (12.1-15.1)
[2023-08-08] MEDS: nitroglycerin 1 gm/inch oint Pkt 1 INCH TOPICAL (20:15)
[2023-08-08 20:22] LABS: INR 1.27 (0.8-1.2)
[2023-08-08 20:30] LABS: Troponin(5th) Baseline 25 ng/L (0-10)
[2023-08-08 20:45] LABS: Alanine Aminotransferase 17 U/L (0-33); Albumin Level 4.1 g/dL (3.5-5.2); Alkaline Phosphatase 87 U/L (35-105); Aspartate Amino Transferase 29 U/L (0-32); Blood Urea Nitrogen 17 mg/dL (8-23); Calcium 9.5 mg/dL (8.5-10.5); Carbon Dioxide 25 mmol/L (22-29); Chloride 98 mmol/L (98-107); Globulin 2.8 g/dL (1.3-4.6); Glucose 131 mg/dL (65-115); Magnesium 1.5 mg/dL (1.7-2.3); NT Pro B Type Natriuretic Pept 16956 pg/mL (0-450); Osmolality Calculated 281 mOsm/kg (285-295); Sodium 134 mmol/L (136-145); Total Bilirubin 1.3 mg/dL (0.15-1.2); Total Protein 6.9 g/dL (6.6-8.7)
[2023-08-08 20:55] LABS: SARS Covid-2 Antigen negative (Negative)
[2023-08-08 21:15] LABS: Influenza A by IFA Negative (Negative); Influenza B by IFA Negative (Negative)
[2023-08-08] MEDS: magnesium sulfate premix 1 GM/100 ML PIGGYBACK IV (21:25)
--- NOTE | 2023-08-08 21:30 | PM.CONSULT ---
Providers/Reason For Consult Consulting Physician/Specialty*: Gregg Blanco MD/ Cardiology Reason for Consult*: Ventricular tachycardia/chest pain Requesting Physician: Dr Capellan Attending Physician: Dr Felder Primary Care Provider: Nat Wagner MD History of Present Illness History of Present Illness Meryl Baldwin is a 77 year old female with past medical history of nonischemic cardiomyopathy, ICD in place, congestive heart failure, atrial fibrillation on Eliquis presented to hospital with about 1 to 2 hours of chest pain. According to patient she felt a sharp discomfort similar to her prior ICD shocks. Since then has been having chest discomfort. It is radiating to the back as well. She says she has not been feeling well recently and had flulike symptoms about a week ago. Had mild fever as well. EKG shows a nonspecific ST-T wave changes but has paced rhythm. Troponin is 25. 2-hour troponin is pending. Review of Systems General: Reports: 10 or more systems reviewed and unremarkable except in HPI and below Const: Denies: fever(s), chills or body aches Eyes: Denies: change in vision, blurry vision or photophobia ENMT: Reports: hoarseness; Denies: throat pain, enlarged tonsils, odynophagia or nasal congestion Card: Reports: chest pain; Denies: palpitations, irregular heart rhythm, edema, swelling of feet/ankles, lightheadedness, pre-syncope, dyspnea on exertion or orthopnea Resp: Denies: dyspnea, productive cough, non-productive cough, wheezing, stridor, pain on inspiration, change in phlegm color, hemoptysis or chest congestion GI: Denies: abdominal pain, nausea, vomiting, hematemesis, coffee ground emesis, dysphagia, heartburn, diarrhea, constipation, GI cramping, change in stool character, hematochezia or melena : Denies: flank pain, difficulty voiding, dysuria, urinary frequency, urinary urgency, urinary hesitancy or hematuria Musc: Denies: neck pain, back pain, extremity pain, joint swelling, joint warmth or deformity Neuro: Denies: headache(s), numbness in extremities, weakness in extremities, sensory changes, difficulty walking, frequent falls, dizziness, vertigo, behavioral changes, Slurred speech present or seizure-like activity Psych: Denies: anxiety, depression, suicidal ideation or homicidal ideation Endo: Denies: polyuria, polydipsia, tired all the time, cold intolerance or hot flashes Ruben/Lymph: Denies: easy bruising or easy bleeding Medications/Allergies Home Medications Medication Instructions Recorded Confirmed Last Taken Type amlodipine 2.5 mg tablet (Norvasc) 2.5 mg PO QAM 09/12/19 08/08/23 07/02/22 History lovastatin 10 mg tablet 10 mg PO BEDTIME 09/12/19 08/08/23 07/01/22 21:00 History pantoprazole 40 mg tablet,delayed 40 mg PO QAM 09/12/19 08/08/23 07/02/22 History release (Protonix) apixaban 5 mg tablet (Eliquis) 5 mg PO BID 02/20/20 08/08/23 06/28/22 History Vitamin B-12 2 tab PO QAM 05/09/21 08/08/23 07/02/22 History montelukast 10 mg tablet 10 mg PO DAILY 05/09/21 08/08/23 07/01/22 21:00 History multivitamin 1 tab PO DAILY 11/26/21 08/08/23 07/02/22 History calcium carbonate 600 mg-vitamin 1 cap PO DAILY 05/20/22 08/08/23 07/02/22 History D3 10 mcg (400 unit) capsule fluticasone 250 mcg-salmeterol 50 1 inh inhalation Q12H 05/20/22 08/08/23 07/02/22 History mcg/dose blistr powdr for inhalation (Advair Diskus) diphenhydramine HCl 25 mg capsule 25 mg PO TID PRN Insomnia 06/17/22 08/08/23 Unknown History (Benadryl) diclofenac sodium 1 % topical gel 2 - 4 g topical QID PRN Pain #100 01/14/23 08/08/23 Unknown Rx grams ergocalciferol (vitamin D2) 1,250 1,250 mcg PO .weekly #12 caps 02/17/23 08/08/23 08/05/23 21:00 Rx mcg (50,000 unit) capsule albuterol sulfate 90 mcg/actuation 2 inh inhalation Q4H PRN shortness 05/19/23 08/08/23 Unknown Rx aerosol inhaler of breath or wheezing #18 grams amiodarone 200 mg tablet 200 mg PO QAM #60 tabs 05/19/23 08/08/23 Unknown Rx gabapentin 400 mg capsule 400 mg PO QID #120 caps 05/19/23 08/08/23 Unknown Rx hydroxyzine pamoate 25 mg capsule 25 mg PO Q8H PRN Panic Attack(S) 05/21/23 08/08/23 Unknown Rx (Vistaril) #90 caps trazodone 100 mg tablet 100 mg PO BEDTIME #30 tabs 06/02/23 08/08/23 Unknown Rx furosemide 80 mg tablet 80 mg PO QAM #30 tabs 06/10/23 08/08/23 Unknown Rx meclizine 25 mg tablet 25 mg PO TID PRN dizziness #30 tabs 07/17/23 08/08/23 Unknown Rx fluticasone propionate 50 2 spray intranasal QAM #16 grams 07/30/23 08/08/23 Unknown Rx mcg/actuation nasal spray,suspension (Flonase Allergy Relief) buspirone 7.5 mg tablet 7.5 mg PO TID 08/08/23 08/08/23 Unknown History duloxetine 60 mg capsule,delayed 60 mg PO BID 08/08/23 08/08/23 Unknown History release hydrocodone 5 mg-acetaminophen 325 1 tab PO Q4H PRN Pain 08/08/23 08/08/23 Unknown History mg tablet potassium chloride 10 mEq 10 meq PO DAILY 08/08/23 08/08/23 Unknown History capsule,extended release ropinirole 3 mg tablet 3 mg PO BEDTIME 08/08/23 08/08/23 Unknown History sacubitril 97 mg-valsartan 103 mg 1 tab PO BID 08/08/23 08/08/23 Unknown History tablet (Entresto) torsemide 20 mg tablet 40 mg PO DAILY 08/08/23 08/08/23 Unknown History tramadol 50 mg tablet 50 mg PO Q4H PRN Pain 08/08/23 08/08/23 Unknown History Allergies Allergy/AdvReac Type Severity Reaction Status Date / Time alprazolam [From Xanax] Allergy unknown Verified 07/17/23 09:25 divalproex sodium Allergy liver Verified 07/17/23 09:25 [From Depakote] failure meperidine [From Demerol] Allergy unknown Verified 07/17/23 09:25 paroxetine [From Paxil] Allergy unknown Verified 07/17/23 09:25 phenytoin [From Dilantin] Allergy unknown Verified 07/17/23 09:25 piroxicam Allergy unknown Verified 07/17/23 09:25 povidone-iodine Allergy rash Verified 07/17/23 09:25 [From Betadine] soap [From Betadine] Allergy rash Verified 07/17/23 09:25 verapamil Allergy anaphylactic Verified 07/17/23 09:25 shock adhesive tape AdvReac rash Verified 07/17/23 09:25 latex AdvReac rash Verified 07/17/23 09:25 Current Medications Generic Name Dose Route Start Last Admin Trade Name Freq PRN Reason Stop Dose Admin Magnesium Sulfate/Dextrose 1 gm in 100 mls @ 200 mls/hr 08/08/23 21:02 08/08/23 21:25 Magnesium Sulfate Premix IV 08/08/23 21:31 200 mls/hr ONCE ONE Administration PFSH Acute PFSH: Medical History Hypertension, benign essential, age 0-18 High risk medication use Non-ischemic cardiomyopathy ICD (implantable cardioverter-defibrillator), dual, in situ Chronic atrial fibrillation Chronic anticoagulation Restless leg syndrome Hypertension History of pacemaker Depression Anxiety Atrial fibrillation Arthritis AIDEN (obstructive sleep apnea) COPD (chronic obstructive pulmonary disease) Surgical History Status post colonoscopy (02/28/20) diverticulosis H/O cardiac radiofrequency ablation Hx laparoscopic cholecystectomy History of tonsillectomy H/O: hysterectomy Family History Mother CAD (coronary artery disease) Stroke Father CAD (coronary artery disease) Grandmother CAD (coronary artery disease) Cancer Grandfather CAD (coronary artery disease) Brother CAD (coronary artery disease) Sister CAD (coronary artery disease) Daughter CAD (coronary artery disease) Diabetes Cancer Son Diabetes Other Hypertension Denies family history of Clotting disorder Dementia Chronic kidney disease (CKD) Suicide Anesthesia complication Bleeding disorder Lung disease Social History Smoking and tobacco/nicotine status: former use of tobacco/nicotine Quit status (tobacco/nicotine): has quit using Year quit tobacco: 1979 Alcohol intake: never Substance/Drug Use: never Lives independently: Yes Marital status: Single Current occupational status: retired Vitals/I&O/Wt Last Vital Signs Temp 100.2 F H 08/08/23 19:44 Pulse 71 08/08/23 20:31 Resp 21 H 08/08/23 20:31 BP 144/67 08/08/23 20:27 Pulse Ox 98 08/08/23 20:31 O2 Del Method Nasal Cannula 08/08/23 20:31 O2 Flow Rate 2 08/08/23 20:31 Weight last 48 hrs Weight 160 lb Physical Exam Narrative: GENERAL: Patient is alert, awake and oriented x3. [] NECK: No jugular vein distension. [] HEENT: No cyanosis. No icterus. No pallor. [] HEART: Regular S1 and S2. No murmur, rub or gallop. [] LUNGS: Clear to auscultate bilaterally. [] CENTRAL NERVOUS SYSTEM: Grossly nonfocal. [] EXTREMITIES: Lower extremities with 1+ edema bilaterally. Data 08/09/23 01:26 08/09/23 01:26 A&P Assessment and plan (1) Ventricular fibrillation: (2) Cardiomyopathy, nonischemic: (3) Chest pain: Qualifiers: Chest pain type: unspecified Qualified Code(s): R07.9 - Chest pain, unspecified (4) Chronic atrial fibrillation: Plan Patient has presented with chest pain however it started after ICD shock. Interrogation of the device is showing ventricular fibrillation. Previous episode was of VT which was terminated with ATP. Given troponins are not significantly elevated and it was non-ischemic cardiomyopathy, we will trend it at this time. Hold Eliquis. Likely will need ischemic workup given ventricular fibrillation/VT episode. N.p.o. past midnight Will obtain echocardiogram. If has further episodes of arrhythmias, we will start Amiodarone Has likely underlying infection with fever. Workup and treatment per medicine team Thank you for involving us with care of this patient. We will continue to follow. Please call with questions Consult Attestations Medical Necessity Statement: Care expected to cross 2 midnights. Coding Level of Care Code Acute Code for [facility] Diagnoses Ventricular fibrillation I49.01 Cardiomyopathy, nonischemic I42.8 Chest pain R07.9 Chest pain type: unspecified Chronic atrial fibrillation I48.20
--- NOTE | 2023-08-08 21:36 | ECG_ITS ---
[facility] Test Date: 2023-08-08 Pat Name: Meryl Baldwin Department: Room: Gender: Female Hand Spring Former: : 1945 Requested By: Edward Capellan Order Number: [id number] Saritha MD: Gregg Blanco M.D. Measurements Intervals [place] Rate: 69 P: -42 [place]: 109 QRS: 268 QRSD: 99 T: 0 QT: 418 QTc: 450 Interpretive Statements VENTRICULAR PACED RHYTHM RIGHT AXIS DEVIATION [QRS AXIS > 100] LOW QRS VOLTAGE [QRS DEFLECTION < 0.5/1.0 mV IN LIMB/CHEST LEADS] POSSIBLE RIGHT VENTRICULAR CONDUCTION DELAY [RSR (QR) IN V1/V2] POSSIBLE ANTERIOR MYOCARDIAL INFARCTION , OF INDETERMINATE AGE [30 ms Q WAVE IN V3/V4, OR R < 0.2 mV IN V4] MARKED ST ELEVATION,AGE INDETERMINATE Compared to ECG 05/19/2023 17:57:26 Short [place] interval now present Right-axis deviation now present ST (T wave) deviation now present Electronically Signed On 08-09-2023 10:23:01 MACHINE CASTINGS PLASTERER by Gregg Blanco M.D. [id number]
[2023-08-08 21:51] LABS: Troponin 5 2HR 26.27 ng/L (0-10); Troponin 5 2HR Delta 1.27 ABS# (0-10)
[2023-08-09] VITALS (63 sets, daily range): BP systolic 108–145; BP diastolic 55–79; PULSE 70–77; RESP 15–33; TEMP 36.6–37.8; O2SAT 90–98
--- NOTE | 2023-08-09 01:13 | ECG_ITS ---
[facility] Test Date: 2023-08-09 Pat Name: Meryl Baldwin Department: Room: 104 Gender: Female Unit Tender: : 1945 Requested By: Edward Capellan Order Number: [id number] Saritha MD: Gregg Blanco M.D. Measurements Intervals [place] Rate: 69 P: 270 [place]: 81 QRS: 88 QRSD: 85 T: 120 QT: 336 QTc: 362 Interpretive Statements ELECTRONIC ATRIAL PACEMAKER LOW QRS VOLTAGE [QRS DEFLECTION < 0.5/1.0 mV IN LIMB/CHEST LEADS] POSSIBLE RIGHT VENTRICULAR CONDUCTION DELAY [RSR (QR) IN V1/V2] ANTEROLATERAL MYOCARDIAL INFARCTION , OF INDETERMINATE AGE [40+ ms Q WAVE IN I/aVL/V3-V6] Compared to ECG 08/08/2023 21:36:49 Sinus rhythm no longer present Short [place] interval no longer present Right-axis deviation no longer present Myocardial infarct finding still present ST (T wave) deviation still present Electronically Signed On 08-09-2023 10:22:01 VIDEO LIBRARY ASSISTANT by Gregg Blanco M.D. [id number]
[2023-08-09] MEDS: amiodarone 150 MG/100 ML PREMIX 400 MG IV (01:31)
--- NOTE | 2023-08-09 01:36 | USCV_ITS ---
Meryl Baldwin Age: 77 Gender: F : 1945 Exam Date: 08/09/2023 07:00 Ordering Phys: Francesca Felder MD Technologist: Loi Fink Exam Location: [facility] – [place] Indication: known cardiomyopathy BP: 121 / 58 HR: 70 Rhythm: Sinus Technical Quality: Adequate MEASUREMENTS (Male / Female) Normal Values 2D ECHO LVOT Diameter 2.0 cm LV Ejection Fraction MOD 2C 49.2 % LV Ejection Fraction 2C AL 47.9 % LA Diameter 4.0 cm LA Width 4.1 cm LA Height 5.2 cm RA Width 4.5 cm RA Height 4.0 cm Aorta at Sinotubular Diameter 1.9 cm IVC Diameter 1.8 cm M-MODE Aortic Annulus Diameter 3.0 cm LA Ao Ratio MM 1.4 MV E Point Septal Separation 1.2 cm DOPPLER AV Peak Velocity 129.0 cm/s LVOT Peak Velocity 88.0 cm/s AV Area Cont Eq vti 2.4 cm squared AV Area Cont Eq pk 2.3 cm squared MV Peak Velocity 97.0 cm/s MV Area PHT 5.0 cm squared Mitral E to A Ratio 1.6 MV E' Velocity 36.5 cm/s Mitral E to MV E' Ratio 6.8 Mitral E to LV E' Lateral Ratio 9.1 Mitral E to LV E' Septal Ratio 5.5 TR Peak Velocity 264.7 cm/s TR Peak Gradient 28.0 mmHg TR Mean Velocity 199.8 cm/s TR Mean Gradient 17.1 mmHg TR Velocity Time Integral 65.5 cm Right Atrial Pressure 3.0 mmHg Pulmonary Artery Systolic Pressu 31.0 mmHg PV Peak Velocity 75.0 cm/s RV Acceleration Time 0.1 s RV Ejection Time 0.3 s RV AcT/ET 0.3 FINDINGS Left Ventricle Technically limited quality echocardiogram because of poor ultrasonic windows. Left ventricle is normal in size. LV systolic function is mildly reduced with EF of 40 to 45%. Mild global hypokinesis seen. Right Ventricle Grossly normal Right Atrium Normal in size. Pacemaker lead is seen Left Atrium Normal in size Mitral Valve Mitral valve is thickened. Mild mitral regurgitation. Aortic Valve Aortic valve is thickened. No significant stenosis. Mild aortic regurgitation. Tricuspid Valve Mild tricuspid regurgitation. Pulmonary artery systolic pressure is normal. Pulmonic Valve Mild pulmonic regurgitation Pericardium Normal Aorta Normla in size IVC Appears to be normal CONCLUSIONS Technically limited quality echocardiogram because of poor ultrasonic windows. LV systolic function is mildly reduced with EF of 40 to 45%. Mild mitral regurgitation. Mild aortic regurgitation. Mild tricuspid regurgitation. Mild pulmonic regurgitation. Compared to prior echocardiogram from 2020, no significant changes are seen Gregg Blanco MD (Electronically Signed) Final Date: 09 August 2023 10:09 S
[2023-08-09 01:44] LABS: Basophils # 0.1 10^3/uL (0.0-0.1); Basophils % 0.6 %; Eosinophils % 0.3 %; Hematocrit 32.8 % (36-47); Lymphocytes # 3.4 10^3/uL (0.8-4.8); Mean Corpuscular HGB Conc 32.9 g/dL (30-55); Mean Corpuscular Hemoglobin 33.1 pg (27-33); Mean Corpuscular Volume 100.6 fl (85-98); Mean Platelet Volume 8.6 fL (7.4-10.4); Monocytes % 9.7 %; Neutrophils # 5.77 10^3/uL (1.8-7.7); Neutrophils % 56.1 %; Nucleated Red Blood Cells % 0 %; Platelet Count 178 10^3/cmm (157-399); Red Blood Count 3.26 10^6/uL (3.85-5.65); Red Cell Distribution Width 13.8 % (12.1-15.1); White Blood Count 10.29 10^3/uL (3.29-11.43)
--- NOTE | 2023-08-09 01:44 | P.HP_ITS ---
Providers/Chief Complaint 2 Admitting Physician: Francesca Felder MD Primary Care Provider: Nat Wagner MD Chief Complaint: vertigo, weakness, CP History of Present Illness Meryl Baldwin is a 77 year old female with chronic atrial fibrillation on A/c, non-ischemic cardiomyopathy, hypertension, and COPD. She presents to the emergency room today due to her ICD firing. Patient states that she has been feeling unwell for about the last 10 to 14 days. She has had some flulike symptoms about 1 week ago, also had cellulitis of her lower extremity which for which she received a course of clindamycin. She is currently experiencing dysuria and feeling of incomplete evacuation of urine. She has had some low-grade fevers at home additionally. She states that because of all these above issues she has been feeling increasingly fatigued at home. She also has dyspnea on exertion which is worse than her recent baseline. Today she had 2 episodes of feeling dizzy and weak followed shortly afterwards by her ICD firing. An additional episode of V-fib was noted after patient was admitted to the [facility] for which patient felt her ICD fired. Currently her rhythm is a paced rhythm. She states that she has been feeling intermittent chest discomfort for which she received Nitropaste after ER arrival and appears to have relieved her symptoms. She denies any current cough or expectoration. States that her URI symptoms are also much improved compared to last week. She states that she had the flu, however she has not had any confirmatory testing for the same.Rapid COVID and flu antigens are negative today. Review of Systems 2 General: Reports: 10 or more systems reviewed and unremarkable except in HPI and below Const: Denies: fever(s), chills or body aches Eyes: Denies: change in vision, blurry vision or photophobia ENMT: Reports: hoarseness; Denies: throat pain, enlarged tonsils, odynophagia or nasal congestion Card: Denies: chest pain, palpitations, irregular heart rhythm, edema, swelling of feet/ankles, lightheadedness, pre-syncope, dyspnea on exertion or orthopnea Resp: Denies: dyspnea, productive cough, non-productive cough, wheezing, stridor, pain on inspiration, change in phlegm color, hemoptysis or chest congestion GI: Denies: abdominal pain, nausea, vomiting, hematemesis, coffee ground emesis, dysphagia, heartburn, diarrhea, constipation, GI cramping, change in stool character, hematochezia or melena : Denies: flank pain, difficulty voiding, dysuria, urinary frequency, urinary urgency, urinary hesitancy or hematuria Musc: Denies: neck pain, back pain, extremity pain, joint swelling, joint warmth or deformity Neuro: Denies: headache(s), numbness in extremities, weakness in extremities, sensory changes, difficulty walking, frequent falls, dizziness, vertigo, behavioral changes, Slurred speech present or seizure-like activity Psych: Denies: anxiety, depression, suicidal ideation or homicidal ideation Endo: Denies: polyuria, polydipsia, tired all the time, cold intolerance or hot flashes Ruben/Lymph: Denies: easy bruising or easy bleeding Medications/Allergies Home Medications Medication Instructions Recorded Confirmed Last Taken Type amlodipine 2.5 mg tablet (Norvasc) 2.5 mg PO QAM 09/12/19 08/08/23 07/02/22 History lovastatin 10 mg tablet 10 mg PO BEDTIME 09/12/19 08/08/23 07/01/22 21:00 History pantoprazole 40 mg tablet,delayed 40 mg PO QAM 09/12/19 08/08/23 07/02/22 History release (Protonix) apixaban 5 mg tablet (Eliquis) 5 mg PO BID 02/20/20 08/08/23 06/28/22 History Vitamin B-12 2 tab PO QAM 05/09/21 08/08/23 07/02/22 History montelukast 10 mg tablet 10 mg PO DAILY 05/09/21 08/08/23 07/01/22 21:00 History multivitamin 1 tab PO DAILY 11/26/21 08/08/23 07/02/22 History calcium carbonate 600 mg-vitamin 1 cap PO DAILY 05/20/22 08/08/23 07/02/22 History D3 10 mcg (400 unit) capsule fluticasone 250 mcg-salmeterol 50 1 inh inhalation Q12H 05/20/22 08/08/23 07/02/22 History mcg/dose blistr powdr for inhalation (Advair Diskus) diphenhydramine HCl 25 mg capsule 25 mg PO TID PRN Insomnia 06/17/22 08/08/23 Unknown History (Benadryl) diclofenac sodium 1 % topical gel 2 - 4 g topical QID PRN Pain #100 01/14/23 08/08/23 Unknown Rx grams ergocalciferol (vitamin D2) 1,250 1,250 mcg PO .weekly #12 caps 02/17/23 08/08/23 08/05/23 21:00 Rx mcg (50,000 unit) capsule albuterol sulfate 90 mcg/actuation 2 inh inhalation Q4H PRN shortness 05/19/23 08/08/23 Unknown Rx aerosol inhaler of breath or wheezing #18 grams amiodarone 200 mg tablet 200 mg PO QAM #60 tabs 05/19/23 08/08/23 Unknown Rx gabapentin 400 mg capsule 400 mg PO QID #120 caps 05/19/23 08/08/23 Unknown Rx hydroxyzine pamoate 25 mg capsule 25 mg PO Q8H PRN Panic Attack(S) 05/21/23 08/08/23 Unknown Rx (Vistaril) #90 caps trazodone 100 mg tablet 100 mg PO BEDTIME #30 tabs 06/02/23 08/08/23 Unknown Rx furosemide 80 mg tablet 80 mg PO QAM #30 tabs 06/10/23 08/08/23 Unknown Rx meclizine 25 mg tablet 25 mg PO TID PRN dizziness #30 tabs 07/17/23 08/08/23 Unknown Rx fluticasone propionate 50 2 spray intranasal QAM #16 grams 07/30/23 08/08/23 Unknown Rx mcg/actuation nasal spray,suspension (Flonase Allergy Relief) buspirone 7.5 mg tablet 7.5 mg PO TID 08/08/23 08/08/23 Unknown History duloxetine 60 mg capsule,delayed 60 mg PO BID 08/08/23 08/08/23 Unknown History release hydrocodone 5 mg-acetaminophen 325 1 tab PO Q4H PRN Pain 08/08/23 08/08/23 Unknown History mg tablet potassium chloride 10 mEq 10 meq PO DAILY 08/08/23 08/08/23 Unknown History capsule,extended release ropinirole 3 mg tablet 3 mg PO BEDTIME 08/08/23 08/08/23 Unknown History sacubitril 97 mg-valsartan 103 mg 1 tab PO BID 08/08/23 08/08/23 Unknown History tablet (Entresto) torsemide 20 mg tablet 40 mg PO DAILY 08/08/23 08/08/23 Unknown History tramadol 50 mg tablet 50 mg PO Q4H PRN Pain 08/08/23 08/08/23 Unknown History Allergies Allergy/AdvReac Type Severity Reaction Status Date / Time alprazolam [From Xanax] Allergy unknown Verified 07/17/23 09:25 divalproex sodium Allergy liver Verified 07/17/23 09:25 [From Depakote] failure meperidine [From Demerol] Allergy unknown Verified 07/17/23 09:25 paroxetine [From Paxil] Allergy unknown Verified 07/17/23 09:25 phenytoin [From Dilantin] Allergy unknown Verified 07/17/23 09:25 piroxicam Allergy unknown Verified 07/17/23 09:25 povidone-iodine Allergy rash Verified 07/17/23 09:25 [From Betadine] soap [From Betadine] Allergy rash Verified 07/17/23 09:25 verapamil Allergy anaphylactic Verified 07/17/23 09:25 shock adhesive tape AdvReac rash Verified 07/17/23 09:25 latex AdvReac rash Verified 07/17/23 09:25 PFSH Acute 2 PFSH: Medical History Hypertension, benign essential, age 0-18 High risk medication use Non-ischemic cardiomyopathy ICD (implantable cardioverter-defibrillator), dual, in situ Chronic atrial fibrillation Chronic anticoagulation Restless leg syndrome Hypertension History of pacemaker Depression Anxiety Atrial fibrillation Arthritis AIDEN (obstructive sleep apnea) COPD (chronic obstructive pulmonary disease) Surgical History Status post colonoscopy (02/28/20) diverticulosis H/O cardiac radiofrequency ablation Hx laparoscopic cholecystectomy History of tonsillectomy H/O: hysterectomy Family History Mother CAD (coronary artery disease) Stroke Father CAD (coronary artery disease) Grandmother CAD (coronary artery disease) Cancer Grandfather CAD (coronary artery disease) Brother CAD (coronary artery disease) Sister CAD (coronary artery disease) Daughter CAD (coronary artery disease) Diabetes Cancer Son Diabetes Other Hypertension Denies family history of Clotting disorder Dementia Chronic kidney disease (CKD) Suicide Anesthesia complication Bleeding disorder Lung disease Social History Smoking and tobacco/nicotine status: former use of tobacco/nicotine Quit status (tobacco/nicotine): has quit using Year quit tobacco: 1979 Alcohol intake: never Substance/Drug Use: never Lives independently: Yes Marital status: Single Current occupational status: retired Vitals/I&O/Wt Last Vital Signs Temp 100.0 F H 08/09/23 00:07 Pulse 71 08/09/23 00:07 Resp 23 H 08/09/23 00:07 BP 108/58 08/09/23 00:07 Pulse Ox 95 08/09/23 00:07 O2 Del Method Nasal Cannula 08/09/23 00:07 O2 Flow Rate 3 08/08/23 22:52 08/08/23 08/08/23 08/09/23 14:59 22:59 06:59 Intake Total 100 / 100 Balance 100 / 100 Weight last 48 hrs Weight 93.939 kg Weight 72.575 kg Physical Exam 2 Narrative: General: No acute distress, AO x3 HEENT: PERRLA, pupils bilaterally equal and reactive, pallors not present Chest: Normal vesicular breath sounds, no added sounds, equal good air entry bilaterally CVS: S1-S2 regular, no murmurs, no tachycardia, no gallops, no rubs Abdomen: Soft, nontender, no organomegaly, bowel sounds present Neuro: No focal deficits, no facial deformity, AO x3, power 5/5 in all limbs Extremities: Bilateral pitting edema, per patient swelling is unusual. Data 08/09/23 01:26 08/09/23 01:26 A&P Assessment and plan (1) Implantable cardioverter-defibrillator (ICD) discharge: (2) Ventricular fibrillation: (3) Hypokalemia: (4) Hypomagnesemia: (5) UTI (urinary tract infection): (6) Urinary retention: Plan 77-year-old lady with past medical history as above presenting to the hospital with complaints of ICD discharge twice at home and once again in the hospital today. Per review of telemetry it appears patient had V-fib prior to the AICD fire. Start amiodarone infusion after 150 mg bolus dosing over 10 minutes. AICD interrogation ordered Troponin series baseline at 25, 2 hours at 26, 6 hours at 29, no significant delta at 2 or 6 hours. Evidence of CHF with elevated BNP at 16,000, bilateral lower extremity pitting edema. This is likely acute on chronic systolic CHF exacerbation. Start Lasix 40 mg IV every 24 hours and closely monitor kidney function and urine output Hypokalemia with potassium 3.3, replete with 40 mEq p.o. Magnesium 1.6, replete with 1 g IV. Check echocardiogram for interval change in ejection fraction or wall motion abnormalities. Last echocardiogram dates back to 2020 at which time her LVEF was noted to be 43% with diffuse hypokinesia of the septum and anterolateral wall. Estimated PASP of 27 at that time. Cardiology from the ER Urinary retention with 400 cc urine on bladder scan. Mckenzie placed for the same. Patient reports symptoms of dysuria and hesitancy over the past week. Noted to have low-grade fever. Check UA and urine culture. Start ceftriaxone empirically due to concern for UTI. Check blood culture Chest x-ray without consolidation, Shows dependent bibasilar atelectasis. Encourage spirometry for the same. Attestations 2 Medical Necessity Statement*: Greater than 2 midnight admission is anticipated for cardiac arrhythmia, AICD firing, chronic infusion, possible UTI needing IV antibiotic treatment, fever evaluation Coding Level of Care Code Acute Code for Chg Fwd High MDM includes number and complexity of problems actively addressed during encounter, amount and/or complexity of data reviewed/ordered and described risk of complication, morbidity or mortality of management as documented Diagnoses Implantable cardioverter-defibrillator (ICD) discharge Z45.02 Ventricular fibrillation I49.01 Hypokalemia E87.6 Hypomagnesemia E83.42 UTI (urinary tract infection) N39.0 Urinary retention R33.9
[2023-08-09 01:49] LABS: Troponin 5 6HR 29.62 ng/L (0-10); Troponin 5 6HR Delta 4.62 ng/L (0-12)
[2023-08-09 01:55] LABS: Alanine Aminotransferase 14 U/L (0-33); Albumin Level 3.7 g/dL (3.5-5.2); Alkaline Phosphatase 76 U/L (35-105); Anion Gap 15.3 (5-19); Aspartate Amino Transferase 23 U/L (0-32); Blood Urea Nitrogen 18 mg/dL (8-23); Calcium 8.9 mg/dL (8.5-10.5); Carbon Dioxide 25 mmol/L (22-29); Chloride 95 mmol/L (98-107); Glucose 132 mg/dL (65-115); Magnesium 1.6 mg/dL (1.7-2.3); Osmolality Calculated 278 mOsm/kg (285-295); Potassium 3.3 mmol/L (3.5-5.1); Sodium 132 mmol/L (136-145); Total Bilirubin 1.4 mg/dL (0.15-1.2); Total Protein 6.7 g/dL (6.6-8.7)
[2023-08-09 03:10] LABS: Add Urine Microscopic? YES; Bilirubin Urine 1+ (Negative); Blood Urine Neg (Negative); Glucose Urine UA Norm (Normal); Ketones Urine 1+ (Negative); Leukocyte Esterase Urine Trace (Negative); Nitrate Urine Negative (Negative); Protein Urine Trace (Negative); Urine Appearance SL Hazy (CLEAR); Urine Color Amber (Yellow); Urobilinogen Urine Norm (Negative); pH Urine 5 (5-7)
[2023-08-09 03:11] LABS: RBC Urine 0-4 /hpf (0-2); Squamous Epithelial Cell Urine 0-4 /hpf (0-5); WBC Urine 0-4 /hpf (0-5)
[2023-08-09 03:12] LABS: Bacteria Urine 1+ /hpf
[2023-08-09] MEDS: cefTRIAXone 1,000 MG in sodium chloride 0.9% (plus) 50 ML 100 MG IV (03:59)
[2023-08-09] MEDS: potassium chloride ER 20 mEq Tablet 40 MEQ PO (05:57)
[2023-08-09] MEDS: FUROsemide 10 mg/mL SDV 4mL 40 MG IVP (05:58)
[2023-08-09] MEDS: magnesium sulfate premix 1 GM/100 ML PIGGYBACK IV (06:01)
--- NOTE | 2023-08-09 08:45 | XACV_ITS ---
Exam Room: [employer] Ht: 160 cm Wt: 94 kg BSA: 2.09 m2 Gender: Female : 1945 Any Known Allergies: Other Exam Priority: Routine Procedure(s): Procedure Description: Diagnostic procedure Procedure Description: Coronary Angiography Diagnostic Cath Status: Urgent Diagnostic Findings * INDICATION: Ventricular fibrillation/ventricular tachycardia. * No significant disease noted in the Left Main, Left Anterior Descending, Right, or Circumflex coronary arteries. * Coronary angiography shows right dominance. Conclusions 1. No significant disease noted in the Left Main, Left Anterior Descending, Right, or Circumflex coronary arteries. 2. Non-ischemic cardiomyopathy. Recommendations * Aggressive medical therapy. * Outpatient cardiology follow up in 2 weeks. Interventional RX Recommendation: medical therapy and/or counseling Diagnostic RX Recommendation: medical therapy and/or counseling Anticoagulation: Heparin Clinical Evaluation EBL: 5mL-10mL Procedural Details Pre-Procedure Time Out. Identified patient by full name and date of as verbalized by the patient/guarantor. Does the consent match the physician's order: Yes. Accurate & Complete Informed Consent: Yes. Inpatient/Outpatient History & Physical on Chart: Yes. If H&P is completed, is and addenduem needed: No; If yes, is the addendum complete: N/A. Visualize and Verify Site with Patient/Guarantor: N/A. Relevant Radiology Images available: N/A. Pre-op teaching completed and patient verbalized understanding. The risks, benefits, and alternatives of sedation and/or procedure were discussed by physician. The patient agrees to continue. Procedure started. [facility] Clinical Fraility Score: 5: Mildly Frail. 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 Chest Pain Symptom Assessment: Atypical Angina. Cardiovascular Instability: Yes, if yes, Ventricular Arrhythmias. Correct patient, site and procedure confirmed by cath team. Current diagnosis: Recurrent VT's ; V fib. PERRLA. Strong, equal hand chlorine cell tender bilaterally. Lungs clear x 5 lobes. IV Site on Arrival: 20 gauge in the left hand. IV Site on Arrival: 20 gauge in the right forearm. IV Fluids: 0.9% NaCl at KVO. 0 mL infused prior to qc lab technician. Pre Procedural Pulses: bilateral dorsalis pedis was Doppled. Pre Procedural Pulses: bilateral posterior tibial was Doppled. Pre Procedural Pulses: bilateral radial was 2+. Oxygen started at 3liters/min via nasal canula. right radial was prepped with chloroprep then draped in the usual sterile fashion. right groin was prepped with chloroprep then draped in the usual sterile fashion. Physician notified. Baseline sample Acquired. HR: 70 BPM. Baseline sample Acquired. HR: 70 BPM. Premedicated for Iodine allergy with IV benadyrl and solu medrol. Physician arrived. Admit Source: In Patient. Current Diagnosis : Chest Pain. Physician scrubbed in. Immediate Pre-Procedure Time Out. Correct Patient: Yes; Correct Procedure: Yes; Correct Site: Yes; Correct Patient Position: Yes; Correct Supplies: Yes; Dried Flammable Prep: Yes; Blood Products Available: N/A;. Lidocaine 1% infiltrated to the right radial. Arterial access obtained. A 5 [place] TIG catheter in over wire. Wire out. Hand injection of the axilla performed by Dr Blanco. Glidewire inserted. Catheter advanced to the coronary anatomy. Glidewire out. Unable to cannulate the LCS or RCA. Catheter removed over the exchange wire. A 5 [place] JR4 catheter in over wire. Multiple views taken of right coronary artery. A 5 [place] JL3.5 catheter in over wire. Multiple views taken of left coronary artery. Catheter removed over the exchange wire. A 5 [place] Angled Pig catheter in over wire. Unable to advance the catheter to LV. Removed over the wire. Physician review of films. Physician scrubbed out. A TR Band was successful obtaining hemostatsis at the Right Radial artery insertion site. TR band placed. Hemostasis obtained. Post Procedure: Pulses reassessed and unchanged. PERRLA. Strong, equal hand chlorine cell tender bilaterally. No VTE prophylaxis required. Medicaqtion waste: Versed- 1 mg Fentany 75 mcg Heparin- 3000 units Lidocaine- 2 ml Nitro 49.8 mg. Total IV fluids: 35 mL. Fluoro: 7:04. [id number]. Contrast type used: Omnipaque 300 mg/mL, 150 mL bottle. Post-op diagnosis: Non Ischemic Cardiomyopathy. Complications: None. Estimated blood loss: 5mL-10mL. Responsiveness - Normal response to verbal stimuli; alert and oriented, PERRLA. Airway - Unaffected, no intervention required; spontaneous ventilation. Circulation: W/N/L, pulses unchanged. Nausea/Vomiting: No. Procedure completed. Patient transferred by bed to 1st floor. Vital chart was stopped. Access Site Site: Right Radial artery Sheath Size: 6 Fr Hemostasis Method: TR Band Hemostasis Success: Successful Procedure Medications Start: 9:01 AM Stop: 9:01 AM Medication: Aspirin Amount: 325 mg Route: P.O. Start: 9:04 AM Stop: 9:04 AM Medication: Solu-Medrol (methylprednisolone) Amount: 125 mg Route: I.V. Start: 9:05 AM Stop: 9:05 AM Medication: Benadryl Amount: 50 mg Route: I.V. Start: 9:10 AM Stop: 9:10 AM Medication: Versed 1 mg and Fentanyl 25 mcg Amount: 1 Route: I.V. Start: 9:14 AM Stop: 9:14 AM Medication: Nitrogylcerin Amount: 200 mcg Route: I.A. Start: 9:18 AM Stop: 9:18 AM Medication: Heparin Amount: 3000 units Route: I.V. I, the attending physician, have reviewed and verified all procedure medications. Yes, all medications given per verbal order History/Risk Factors Hypertension: Yes Dyslipidemia: Yes Peripheral Arterial Disease (PAD): No Myocardial Infarction (NH): No Obesity: Yes Renal Disease: No Prior Interventions PCI: No CABG: No Valve Surgery: No Report Signatures Finalized by Gregg Blanco MD on 08/10/2023 03:10 PM
--- NOTE | 2023-08-09 08:53 | W.PM.OPSUD ---
Surgery/Procedure H&P Update DATE OF PROCEDURE: August 09, 2023 DATE H&P PERFORMED: 08/08/23 H&P UPDATE INFORMATION: I have reviewed H&P completed within last 30 days, I have examined patient prior to procedure and Changes to prior documentation as noted here CHANGES TO PREVIOUS DOCUMENTATION: Patient had another ventricular fibrillation/VT episode last night terminated by ICD shock. No loss of consciousness. Was started on amiodarone PREOP DIAGNOSIS: Recurrent VT/ Ventricular fibrillation PRIMARY INDICATION FOR PROCEDURE: Recurrent VT/ Ventricular fibrillation PLANNED PROCEDURE: Left heart cath with possible percutaneous coronary intervention PATIENT REASSESSED PRIOR TO SEDATION, WITH NO CHANGE NOTED: Yes PHYSICAL EXAM: alert, oriented x 3, clear to auscultation bilaterally and regular rate & rhythm AIRWAY EVAL/ANESTHESIA PLAN: normal airway, ASA IV, Local Anesthesia, Risks, benefits & alternatives of sedation and/or procedure discussed and Patient agrees to continue as planned ADDITIONAL INFORMATION: Moderate sedation
--- NOTE | 2023-08-09 08:56 | P.PN_ITS ---
Subjective 2 Subjective: Had further episodes of VT V-fib overnight and had another ICD shock. Patient had coronary angiogram done today. It shows patent coronary arteries. Mild ostial RCA stenosis. Her cardiomyopathy is nonischemic. Echo shows a stable cardiac function with EF of 40 to 45%. Vitals/I&O/Wt Last Vital Signs Temp 98.7 F 08/09/23 08:00 Pulse 70 08/09/23 08:00 Resp 19 H 08/09/23 08:00 BP 113/55 08/09/23 08:00 Pulse Ox 94 08/09/23 08:00 O2 Del Method Nasal Cannula 08/09/23 08:00 O2 Flow Rate 3 08/08/23 22:52 08/08/23 08/09/23 08/09/23 22:59 06:59 14:59 Intake Total 100 / 100 150 / 250 100 / 100 Balance 100 / 100 150 / 250 100 / 100 Weight last 48 hrs Weight 207 lb 9.6 oz Weight 207 lb 1.6 oz Weight 160 lb Physical Exam 2 Narrative: GENERAL: Patient is alert, awake and oriented x3. [] NECK: No jugular vein distension. [] HEENT: No cyanosis. No icterus. No pallor. [] HEART: Regular S1 and S2. No murmur, rub or gallop. [] LUNGS: Clear to auscultate bilaterally. [] CENTRAL NERVOUS SYSTEM: Grossly nonfocal. [] EXTREMITIES: Lower extremities with 1+ edema bilaterally. Urinary Catheter Management: Mckenzie: Cath Placed During This Visit: yes Reason for Continuing Indwelling Catheter: Acute Urinary Retention or Obstruction Urinary Catheter Date of Insertion: 08/09/23 Urinary Catheter Time of Insertion: 03:08 Data 08/09/23 01:26 08/09/23 01:26 A&P Assessment and plan (1) Ventricular fibrillation: (2) Cardiomyopathy, nonischemic: (3) Chest pain: Qualifiers: Chest pain type: unspecified Qualified Code(s): R07.9 - Chest pain, unspecified (4) Chronic atrial fibrillation: Plan Patient had further ICD shock overnight. Coronary angiogram performed this morning does not reveal significant CAD. She has non-ischemic cardiomyopathy with stable cardiac function. Likely recent illness/infection could have triggered these. Keep electrolytes in normal range. On amiodarone drip. Will continue with that. Will switch to p.o. amiodarone after 24 hours of loading. Blood pressure is stable. Also start metoprolol 25 mg twice daily. Thank you for involving us with care of this patient. We will continue to follow. Please call with questions Attestations 2 Medical Necessity Statement*: Care expected to cross 2 midnights. Coding Level of Care Code Acute Code for [facility] Diagnoses Ventricular fibrillation I49.01 Cardiomyopathy, nonischemic I42.8 Chest pain R07.9 Chest pain type: unspecified Chronic atrial fibrillation I48.20
[2023-08-09] MEDS: gabapentin 400 mg Capsule PO ×4 (10:15→20:49)
[2023-08-09] MEDS: duloxetine 60 mg Capsule PO ×2 (10:15→18:09)
[2023-08-09] MEDS: sacubitril/valsartan 24-26 mg Tablet 4 EACH PO ×2 (10:15→18:09)
[2023-08-09] MEDS: pantoprazole DR 40 mg Tablet PO (10:15)
[2023-08-09] MEDS: metoprolol tartrate 25 mg Tablet PO ×2 (12:40→20:49)
--- NOTE | 2023-08-09 20:30 | PC.NURSE ---
Patient was complaining of pain from ramos, concerned that it was pulled out of place. The nurse checked the ramos and it had urine draining in the tube and did not appear to be leaking. The pain complained it was bothering her and wanted it removed. The nurse discontinued the ramos cath and assisted patient to the bedside commode. Educated the patient that if she is unable to urinate the ramos may have to be reinserted. Encouraged patient to call for assistance to commode if she has to urinate. Will continue to monitor.
[2023-08-09] MEDS: atorvastatin 40 mg Tablet 20 MG PO (20:49)
[2023-08-09] MEDS: ropinirole 1 mg Tablet 3 MG PO (20:49)
[2023-08-09] MEDS: trazodone 100 mg Tablet PO (20:49)
[2023-08-09] MEDS: albuterol 2.5 mg/3 mL Neb INHALATION (22:07)
[2023-08-09] MEDS: benzonatate 100 mg Capsule PO (22:26)
--- NOTE | 2023-08-09 22:53 | P.PN_ITS ---
Subjective 2 Subjective: She is having some chronic cough, nonproductive. No chest pain. Also having some pain radiating down the posterior left leg from the left side lower back. Vitals/I&O/Wt Last Vital Signs Temp 97.9 F 08/09/23 20:00 Pulse 70 08/09/23 22:15 Resp 16 08/09/23 22:07 BP 145/75 08/09/23 20:00 Pulse Ox 93 08/09/23 22:07 O2 Del Method Nasal Cannula 08/09/23 22:07 O2 Flow Rate 3 08/09/23 22:07 08/09/23 08/09/23 08/09/23 06:59 14:59 22:59 Intake Total 150 / 250 300 / 300 440 / 740 Output Total 1450 / 1450 300 / 1750 Balance 150 / 250 -1150 / -1150 140 / -1010 Weight last 48 hrs Weight 94.166 kg Weight 93.939 kg Weight 72.575 kg Physical Exam 2 Narrative: Accompanied by her grandson. Const: COMMON NORMALS: patient oriented x3 and alert GENERAL APPEARANCE: c ooperative ORIENTATION/CONSCIOUSNESS: Yes awake HENMT: COMMON NORMALS: oropharynx normal Neck/C-Spine: COMMON NORMALS: no JVD Resp: COMMON NORMALS: normal respiratory effort and clear to auscultation bilaterally AUSCULTATION: clear to auscultation bilaterally Cardio: COMMON NORMALS: no JVD, regular rhythm, S1 normal heart sound present, S2 normal heart sound present and No murmurs present (Cardio) RHYTHM: regular rhythm HEART SOUNDS: S1 normal heart sound present and S2 normal heart sound present GI: COMMON NORMALS: Normal to inspection, nondistended, normoactive bowel sounds present, Soft to palpation and non-tender PALPATION: Yes Soft to palpation Extremity: COMMON NORMALS: no joint enlargement and no pedal edema Neuro: COMMON NORMALS: patient oriented x3 and moves all extremities S ENSORIUM/ORIENTATION: Yes alert Skin: COMMON NORMALS: no rashes or lesions noted GENERAL SKIN EXAM: no rashes or lesions noted Urinary Catheter Management: Mckenzie: Cath Placed During This Visit: yes Reason for Continuing Indwelling Catheter: Acute Urinary Retention or Obstruction Urinary Catheter Date of Insertion: 08/09/23 Urinary Catheter Time of Insertion: 03:08 Data 08/09/23 01:26 08/09/23 01:26 A&P Assessment and plan (1) Implantable cardioverter-defibrillator (ICD) discharge: (2) Ventricular fibrillation: (3) Hypokalemia: (4) Hypomagnesemia: (5) UTI (urinary tract infection): (6) Urinary retention: Plan 77-year-old lady with past medical history as above presenting to the hospital with complaints of ICD discharge twice at home and once again in the hospital Started on amiodarone drip due to runs of ventricular tachycardia noted on device interrogation. Discussed with cardiology, continue drip, subsequently will be switched to higher dose amiodarone. Underwent coronary angiography without significant of coronary disease needing intervention. Continue Lasix for CHF exacerbation. Reviewed CBC, CMP, magnesium. TSH. Noted hypomagnesemia. Received replacement. Recheck magnesium level. Last echocardiogram dates back to 2020 at which time her LVEF was noted to be 43% with diffuse hypokinesia of the septum and anterolateral wall. Urinary retention with 400 cc urine on bladder scan. Mckenzie placed for the same. Patient reports symptoms of dysuria and hesitancy over the past week. Noted to have low-grade fever. UA equivocal for UTI, 0-4 RBC, 0-4 WBC, 1+ bacteria. Negative nitrites. She has been having some cough, possibly responsible for her low-grade fever. Rapid COVID and influenza noted negative. Continue ceftriaxone empirically for now. Added Tesdavid Rueda. Follow-up blood culture. Lumbar radiculopathy: Pain radiating down the posterior left leg from left side lower back. Not a good candidate for NSAIDs at current time. Tylenol as needed. Added Capsaicin. Lidocaine patch considered, but allergy to adhesive. Attestations 2 Medical Necessity Statement*: Continue admission for assessment and management of recurrent tachycardia, ICD device discharge, decompensated CHF. and High MDM includes amount and/or complexity of data reviewed/ordered [ resulted lab(s)/test(s) and other healthcare professional discussion] as documented Diagnoses Implantable cardioverter-defibrillator (ICD) discharge Z45.02 Ventricular fibrillation I49.01 Hypokalemia E87.6 Hypomagnesemia E83.42 UTI (urinary tract infection) N39.0 Urinary retention R33.9
--- NOTE | 2023-08-09 23:58 | PC.NURSE ---
Spoke with regarding patient on amiodarone gtt, will be completing 24hours on gtt and 18hrs on 0.5mg/min but no orders to start PO amiodarone. Asked if Dr wanted gtt stopped and to start PO but said continue gtt for the night.
[2023-08-10] VITALS (16 sets, daily range): BP systolic 104–144; BP diastolic 57–88; PULSE 70–89; RESP 13–23; TEMP 36.4–37.1; O2SAT 90–98
[2023-08-10] MEDS: cefTRIAXone 1,000 MG in sodium chloride 0.9% (plus) 50 ML 100 MG IV (01:44)
[2023-08-10 04:02] LABS: Basophils % 0.1 %; Hematocrit 37.4 % (36-47); Lymphocytes # 0.9 10^3/uL (0.8-4.8); Lymphocytes % 8.6 %; Mean Corpuscular HGB Conc 31.6 g/dL (30-55); Mean Corpuscular Hemoglobin 33.1 pg (27-33); Mean Corpuscular Volume 104.8 fl (85-98); Mean Platelet Volume 9.6 fL (7.4-10.4); Monocytes # 0.2 10^3/uL (0.2-0.9); Monocytes % 2.1 %; Neutrophils # 9.23 10^3/uL (1.8-7.7); Neutrophils % 88.8 %; Nucleated Red Blood Cells % 0 %; Platelet Count 174 10^3/cmm (157-399); Red Blood Count 3.57 10^6/uL (3.85-5.65); Red Cell Distribution Width 13.8 % (12.1-15.1); White Blood Count 10.39 10^3/uL (3.29-11.43)
[2023-08-10 04:33] LABS: Alanine Aminotransferase 17 U/L (0-33); Albumin Level 3.6 g/dL (3.5-5.2); Alkaline Phosphatase 80 U/L (35-105); Blood Urea Nitrogen 23 mg/dL (8-23); Calcium 9.1 mg/dL (8.5-10.5); Carbon Dioxide 23 mmol/L (22-29); Chloride 98 mmol/L (98-107); Globulin 3.7 g/dL (1.3-4.6); Glucose 176 mg/dL (65-115); Osmolality Calculated 288 mOsm/kg (285-295); Sodium 135 mmol/L (136-145); Total Bilirubin 0.4 mg/dL (0.15-1.2); Total Protein 7.3 g/dL (6.6-8.7)
[2023-08-10 04:40] LABS: Anion Gap 18.5 (5-19); Potassium 4.5 mmol/L (3.5-5.1)
[2023-08-10 04:41] LABS: Aspartate Amino Transferase 26 U/L (0-32)
[2023-08-10] MEDS: FUROsemide 10 mg/mL SDV 4mL 40 MG IVP (04:43)
[2023-08-10] MEDS: sacubitril/valsartan 24-26 mg Tablet 4 EACH PO ×2 (09:19→17:34)
[2023-08-10] MEDS: duloxetine 60 mg Capsule PO ×2 (09:20→17:35)
[2023-08-10] MEDS: metoprolol tartrate 25 mg Tablet PO ×2 (09:20→20:41)
[2023-08-10] MEDS: pantoprazole DR 40 mg Tablet PO (09:20)
[2023-08-10] MEDS: gabapentin 400 mg Capsule PO ×4 (09:20→20:40)
--- NOTE | 2023-08-10 10:39 | PC.NURSE ---
Provider notified that her Amio drip has ran out and it has been over 24 hours. Provider ordered Amiodarone 400mg BID PO.
[2023-08-10] MEDS: amiodarone 200 mg Tablet 400 MG PO ×2 (10:59→17:35)
--- NOTE | 2023-08-10 12:03 | PC.SOCIAL ---
IMM Update Pg. 2 of IMM updated and reviewed with patient who verbalized understanding. Copy provided. Copy placed in chart.
--- NOTE | 2023-08-10 13:23 | PM.PN ---
Subjective Subjective: Patient has not had any recurrence of VT on the monitor. She was on IV amiodarone and was switched to p.o. today. So far she is doing okay. No chest pain or shortness of breath. No fever, chills or cough. Events of the weekend are noted. Patient had a cardiac catheterization and was found no significant obstructive coronary artery disease Medications: Medication Review Details: Current Medications Acetaminophen (Acetaminophen 325 Mg Tablet) 650 mg PO Q6H PRN PRN Reason: Mild/Mod Pain Or Temp >/= 101 Hydrocodone Bitart/Acetaminophen (Hydrocodone-Acetaminophen 5-325 Mg Tablet) 1 tab PO Q4H PRN PRN Reason: MODERATE PAIN Al Hydrox/Mg Hydrox/Simethicone (Umsp-Zsg-Kwxyetouo-John 30 Ml Udc) 30 ml PO Q15M PRN PRN Reason: INDIGESTION Albuterol Sulfate (Albuterol 2.5 Mg/3 Ml Neb) 2.5 mg INHALATION Q6H.RESP PRN PRN Reason: WHEEZING Last Admin: 08/09/23 22:07 Dose: 2.5 mg Amiodarone HCl (Amiodarone 200 Mg Tablet) 400 mg PO BID [facility] Last Admin: 08/10/23 10:59 Dose: 400 mg Atorvastatin Calcium (Atorvastatin 40 Mg Tablet) 20 mg PO BEDTIME [facility] Last Admin: 08/09/23 20:49 Dose: 20 mg Atropine Sulfate (Atropine 1 Mg/Ml Sdv 1 Ml) 0.5 mg IVP PRN PRN PRN Reason: Symptomatic bradycardia Benzonatate (Benzonatate 100 Mg Capsule) 100 mg PO TID PRN PRN Reason: COUGH Last Admin: 08/09/23 22:26 Dose: 100 mg Capsaicin (Capsaicin 0.025% Cream 60 Gm) 1 applic TOPICAL QID PRN PRN Reason: PAIN Duloxetine HCl (Duloxetine 60 Mg Capsule) 60 mg PO BID [facility] Last Admin: 08/10/23 09:20 Dose: 60 mg Furosemide (Furosemide 10 Mg/Ml Sdv 4ml) 40 mg IVP Q24H [facility] Last Admin: 08/10/23 04:43 Dose: 40 mg Gabapentin (Gabapentin 400 Mg Capsule) 400 mg PO QID [facility] Last Admin: 08/10/23 12:45 Dose: 400 mg Hydroxyzine Pamoate (Hydroxyzine 25 Mg Capsule) 25 mg PO Q8H PRN PRN Reason: Panic Attack(S) Amiodarone HCl/Dextrose (Nexterone) 360 mg in 200 mls @ 0 mls/hr IV .Q0M [facility]; Protocol Last Titration: 08/10/23 10:42 Dose: Infused Ceftriaxone Sodium 1,000 mg/ (Sodium Chloride) 50 mls @ 100 mls/hr IV Q24H [facility]; Protocol Last Infusion: 08/10/23 02:42 Dose: Infused Magnesium Hydroxide (Magnesium Hydroxide 30 Ml Udc) 30 ml PO DAILY PRN PRN Reason: CONSTIPATION Meclizine HCl (Meclizine 25 Mg Tablet) 25 mg PO TID PRN PRN Reason: dizziness Metoprolol Tartrate (Metoprolol Tartrate 25 Mg Tablet) 25 mg PO BID@0900,2100 [facility] Last Admin: 08/10/23 09:20 Dose: 25 mg Morphine Sulfate (Morphine 4 Mg/Ml Sdv 1 Ml) 2 mg IVP Q4H PRN PRN Reason: SEVERE PAIN Naloxone HCl (Naloxone 0.4 Mg/Ml Sdv) 0.1 mg IVP Q2M PRN PRN Reason: OPIATERV Nitroglycerin (Nitroglycerin 0.4 Mg Sublingual Tablet) 0.4 mg SUBLINGUAL Q5M PRN PRN Reason: CHEST PAIN Ondansetron HCl (Ondansetron 2 Mg/Ml Sdv 2 Ml) 4 mg IVP Q8H PRN PRN Reason: vomiting, or N/V if npo Pantoprazole Sodium (Pantoprazole Dr 40 Mg Tablet) 40 mg PO DAILY [facility] Last Admin: 08/10/23 09:20 Dose: 40 mg Ropinirole HCl (Ropinirole 1 Mg Tablet) 3 mg PO BEDTIME [facility] Last Admin: 08/09/23 20:49 Dose: 3 mg Sacubitril/Valsartan (Sacubitril/Valsartan 24-26 Mg Tablet) 4 each PO BID [facility] Last Admin: 08/10/23 09:19 Dose: 4 each Tramadol HCl (Tramadol 50 Mg Tablet) 50 mg PO Q4H PRN PRN Reason: Pain Trazodone HCl (Trazodone 100 Mg Tablet) 100 mg PO BEDTIME [facility] Last Admin: 08/09/23 20:49 Dose: 100 mg Vitals/I&O/Wt Last Vital Signs Temp 97.8 F 08/10/23 07:48 Pulse 89 08/10/23 08:00 Resp 16 08/10/23 08:00 BP 144/88 08/10/23 07:48 Pulse Ox 97 08/10/23 08:00 O2 Del Method Nasal Cannula 08/10/23 08:00 O2 Flow Rate 3 08/10/23 08:00 08/09/23 08/10/23 08/10/23 22:59 06:59 14:59 Intake Total 680 / 980 170 / 1150 420 / 420 Output Total 500 / 1950 800 / 2750 350 / 350 Balance 180 / -970 -630 / -1600 70 / 70 Weight last 48 hrs Weight 212 lb 1.6 oz Weight 207 lb 9.6 oz Weight 207 lb 1.6 oz Weight 160 lb Physical Exam Narrative: GENERAL: The patient is alert and oriented times three. Not in any acute distress. HEENT: No significant pallor, icterus or lymphadenopathy.Oral cavity: There are no mucous membrane lesions. NECK: Trachea appears to be central. No masses noted. No JVD or thyromegaly appreciated. RESPIRATORY: Chest is symmetrical. No intercostals muscle retraction or any accessory muscle activation. There is no chest wall tenderness. Breath sounds are heard bilaterally. No rales or rhonchi heard. No evidence of any consolidation. BREASTS: Deferred. HEART: The heart sounds are normal. No S3 or S4. Short systolic murmur in the lower sternal border. No diastolic murmurs.. No pericardial rub ABDOMEN: No vessel pulsations or distention. No tenderness. No organomegaly appreciated. Bowel sounds are normally heard. : Deferred. RECTAL: Deferred. LYMPHATIC: No lymphadenopathy noted in the neck. EXTREMITIES: No edema or cyanosis. No clubbing. MUSCULOSKELETAL: No acute joint deformities or swelling SKIN: There are no significant rashes or ecchymosis NEUROPSYCHIATRIC: The patient is alert and oriented x3. Appears to be in a good mood. No tremors or rigidity noted. Urinary Catheter Management: Mckenzie: Cath Placed During This Visit: yes, but has since been removed by the nurse Reason for Continuing Indwelling Catheter: Acute Urinary Retention or Obstruction Urinary Catheter Date of Insertion: 08/09/23 Urinary Catheter Time of Insertion: 03:08 Date Urinary Catheter Removed: 08/09/23 Time Urinary Catheter Discontinued: 20:30 Data 08/10/23 03:35 08/10/23 03:35 Other Labs: Laboratory Last Values WBC 10.39 10^3/uL (3.29-11.43) 08/10/23 03:35 RBC 3.57 10^6/uL (3.85-5.65) L 08/10/23 03:35 Hgb 11.80 g/dL (11.27-16.99) 08/10/23 03:35 Hct 37.4 % (36-47) 08/10/23 03:35 MCV 104.8 fl (85-98) H 08/10/23 03:35 MCH 33.1 pg (27-33) H 08/10/23 03:35 MCHC 31.6 g/dL (30-55) 08/10/23 03:35 RDW 13.8 % (12.1-15.1) 08/10/23 03:35 Plt Count 174 10^3/cmm (157-399) 08/10/23 03:35 MPV 9.6 fL (7.4-10.4) 08/10/23 03:35 Neut % (Auto) 88.8 % 08/10/23 03:35 Lymph % (Auto) 8.6 % 08/10/23 03:35 Holmes % (Auto) 2.1 % 08/10/23 03:35 Eos % (Auto) 0.0 % 08/10/23 03:35 Baso % (Auto) 0.1 % 08/10/23 03:35 Neut # (Auto) 9.23 10^3/uL (1.8-7.7) H 08/10/23 03:35 Lymph # (Auto) 0.9 10^3/uL (0.8-4.8) 08/10/23 03:35 Holmes # (Auto) 0.2 10^3/uL (0.2-0.9) 08/10/23 03:35 Eos # (Auto) 0.0 10^3/uL (0.0-0.8) 08/10/23 03:35 Baso # (Auto) 0.0 10^3/uL (0.0-0.1) 08/10/23 03:35 Nucleated RBC % (auto) 0 % 08/10/23 03:35 Nucleated RBCs # 0.0 /100WBC 08/10/23 03:35 PT 16.40 SECONDS (12.1-14.9) H 08/08/23 20:01 INR 1.27 (0.8-1.2) H 08/08/23 20:01 Sodium 135 mmol/L (136-145) L 08/10/23 03:35 Potassium 4.5 mmol/L (3.5-5.1) 08/10/23 03:35 Chloride 98 mmol/L (98-107) 08/10/23 03:35 Carbon Dioxide 23 mmol/L (22-29) 08/10/23 03:35 Anion Gap 18.5 (5-19) 08/10/23 03:35 BUN 23 mg/dL (8-23) 08/10/23 03:35 Creatinine 0.9 mg/dL (0.5-0.9) 08/10/23 03:35 GFR Calculation Not Reportable 08/10/23 03:35 Glucose 176 mg/dL (65-115) H 08/10/23 03:35 Calculated Osmolality 288 mOsm/kg (285-295) 08/10/23 03:35 Calcium 9.1 mg/dL (8.5-10.5) 08/10/23 03:35 Magnesium 2.0 mg/dL (1.7-2.3) 08/10/23 03:35 Total Bilirubin 0.4 mg/dL (0.15-1.2) 08/10/23 03:35 AST 26 U/L (0-32) 08/10/23 03:35 ALT 17 U/L (0-33) 08/10/23 03:35 Alkaline Phosphatase 80 U/L (35-105) 08/10/23 03:35 Troponin T Baseline 25 ng/L (0-10) H 08/08/23 20:01 Troponin T 120 Minute 26.27 ng/L (0-10) H 08/08/23 21:30 Delta Troponin T 1.27 ABS# (0-10) 08/08/23 21:30 Troponin T Hi Sens 6Hr 29.62 ng/L (0-10) H 08/09/23 01:26 Troponin T Hi Sens 6Hr Delta 4.62 ng/L (0-12) 08/09/23 01:26 NT-Pro-B Natriuret Pep 87421 pg/mL (0-450) H 08/08/23 20:01 Total Protein 7.3 g/dL (6.6-8.7) 08/10/23 03:35 Albumin 3.6 g/dL (3.5-5.2) 08/10/23 03:35 Globulin 3.7 g/dL (1.3-4.6) 08/10/23 03:35 TSH 1.50 uIU/mL (0.27-4.20) 08/09/23 01:26 Urine Color Akanksha (Yellow) 08/09/23 02:47 Urine Appearance Sl hazy (CLEAR) A 08/09/23 02:47 Urine pH 5 (5-7) 08/09/23 02:47 Ur Specific [place] 1.010 (1.005-1.030) 08/09/23 02:47 Urine Protein Trace (Negative) 08/09/23 02:47 Urine Glucose (UA) Norm (Normal) 08/09/23 02:47 Urine Ketones 1+ (Negative) H 08/09/23 02:47 Urine Blood Neg (Negative) 08/09/23 02:47 Urine Nitrate Negative (Negative) 08/09/23 02:47 Urine Bilirubin 1+ (Negative) H 08/09/23 02:47 Urine Urobilinogen Norm mg/dL (Negative) 08/09/23 02:47 Ur Leukocyte Esterase Trace (Negative) H 08/09/23 02:47 Urine RBC 0-4 /hpf (0-2) H 08/09/23 02:47 Urine WBC 0-4 /hpf (0-5) H 08/09/23 02:47 Ur Squamous Epith Cells 0-4 /hpf (0-5) H 08/09/23 02:47 Amorphous Sediment Not Reportable 08/09/23 02:47 Urine Bacteria 1+ /hpf (NONE) H 08/09/23 02:47 Hyaline Casts 5-10 /lpf H 08/09/23 02:47 Influenza Type A Ag Negative (Negative) 08/08/23 20:26 Influenza Type B Ag Negative (Negative) 08/08/23 20:26 SARS-CoV-2 Ag (Rapid) negative (Negative) 08/08/23 20:26 Micro: Microbiology 08/09/23 02:47 Urine Culture - Preliminary Urine Catheterized Other data: EKG from yesterday revealed 100% A- sensed, V paced rhythm A&P Assessment and plan (1) Chest pain: Most likely related to the ventricular arrhythmia. She may be continue on the amiodarone and the other current medications. Qualifiers: Chest pain type: unspecified Qualified Code(s): R07.9 - Chest pain, unspecified (2) Implantable cardioverter-defibrillator (ICD) discharge: The ICD function appears to be appropriate. May continue on the current management. (3) Ventricular tachycardia: Patient was started on amiodarone 400 mg p.o. twice daily. We may continue this for 10 days followed by 400 mg daily. Will keep on the 400 milligrams daily dose because of the ventricular tachycardia. (4) Non-ischemic cardiomyopathy: Patient is on the Entresto. This may be continued. (5) Chronic atrial fibrillation: She needs to be put back on the Eliquis, if there is no contraindication. Plan If the patient continues remain stable, may be discharged home tomorrow. She will be seen back in the clinic in 2 weeks by the nurse practitioner. I may see her in the office as scheduled Attestations Medical Necessity Statement*: Possible discharge home tomorrow Coding Level of Care Code Acute Code for [facility] Diagnoses Chest pain R07.9 Chest pain type: unspecified Implantable cardioverter-defibrillator (ICD) discharge Z45.02 Ventricular tachycardia I47.20 Non-ischemic cardiomyopathy I42.8 Chronic atrial fibrillation I48.20
--- NOTE | 2023-08-10 13:37 | PM.PN ---
Subjective Subjective: She reports she is doing better today. Denies chest pain or pressure. Has not had any further shocks. Medications: Medication Review Details: Current Medications Acetaminophen (Acetaminophen 325 Mg Tablet) 650 mg PO Q6H PRN PRN Reason: Mild/Mod Pain Or Temp >/= 101 Hydrocodone Bitart/Acetaminophen (Hydrocodone-Acetaminophen 5-325 Mg Tablet) 1 tab PO Q4H PRN PRN Reason: MODERATE PAIN Al Hydrox/Mg Hydrox/Simethicone (Bgna-Jnv-Qzjjenugf-John 30 Ml Udc) 30 ml PO Q15M PRN PRN Reason: INDIGESTION Albuterol Sulfate (Albuterol 2.5 Mg/3 Ml Neb) 2.5 mg INHALATION Q6H.RESP PRN PRN Reason: WHEEZING Last Admin: 08/09/23 22:07 Dose: 2.5 mg Amiodarone HCl (Amiodarone 200 Mg Tablet) 400 mg PO BID [facility] Last Admin: 08/10/23 10:59 Dose: 400 mg Atorvastatin Calcium (Atorvastatin 40 Mg Tablet) 20 mg PO BEDTIME [facility] Last Admin: 08/09/23 20:49 Dose: 20 mg Atropine Sulfate (Atropine 1 Mg/Ml Sdv 1 Ml) 0.5 mg IVP PRN PRN PRN Reason: Symptomatic bradycardia Benzonatate (Benzonatate 100 Mg Capsule) 100 mg PO TID PRN PRN Reason: COUGH Last Admin: 08/09/23 22:26 Dose: 100 mg Capsaicin (Capsaicin 0.025% Cream 60 Gm) 1 applic TOPICAL QID PRN PRN Reason: PAIN Duloxetine HCl (Duloxetine 60 Mg Capsule) 60 mg PO BID [facility] Last Admin: 08/10/23 09:20 Dose: 60 mg Furosemide (Furosemide 10 Mg/Ml Sdv 4ml) 40 mg IVP Q24H [facility] Last Admin: 08/10/23 04:43 Dose: 40 mg Gabapentin (Gabapentin 400 Mg Capsule) 400 mg PO QID [facility] Last Admin: 08/10/23 12:45 Dose: 400 mg Hydroxyzine Pamoate (Hydroxyzine 25 Mg Capsule) 25 mg PO Q8H PRN PRN Reason: Panic Attack(S) Amiodarone HCl/Dextrose (Nexterone) 360 mg in 200 mls @ 0 mls/hr IV .Q0M [facility]; Protocol Last Titration: 08/10/23 10:42 Dose: Infused Ceftriaxone Sodium 1,000 mg/ (Sodium Chloride) 50 mls @ 100 mls/hr IV Q24H [facility]; Protocol Last Infusion: 08/10/23 02:42 Dose: Infused Magnesium Hydroxide (Magnesium Hydroxide 30 Ml Udc) 30 ml PO DAILY PRN PRN Reason: CONSTIPATION Meclizine HCl (Meclizine 25 Mg Tablet) 25 mg PO TID PRN PRN Reason: dizziness Metoprolol Tartrate (Metoprolol Tartrate 25 Mg Tablet) 25 mg PO BID@0900,2100 [facility] Last Admin: 08/10/23 09:20 Dose: 25 mg Morphine Sulfate (Morphine 4 Mg/Ml Sdv 1 Ml) 2 mg IVP Q4H PRN PRN Reason: SEVERE PAIN Naloxone HCl (Naloxone 0.4 Mg/Ml Sdv) 0.1 mg IVP Q2M PRN PRN Reason: OPIATERV Nitroglycerin (Nitroglycerin 0.4 Mg Sublingual Tablet) 0.4 mg SUBLINGUAL Q5M PRN PRN Reason: CHEST PAIN Ondansetron HCl (Ondansetron 2 Mg/Ml Sdv 2 Ml) 4 mg IVP Q8H PRN PRN Reason: vomiting, or N/V if npo Pantoprazole Sodium (Pantoprazole Dr 40 Mg Tablet) 40 mg PO DAILY [facility] Last Admin: 08/10/23 09:20 Dose: 40 mg Ropinirole HCl (Ropinirole 1 Mg Tablet) 3 mg PO BEDTIME [facility] Last Admin: 08/09/23 20:49 Dose: 3 mg Sacubitril/Valsartan (Sacubitril/Valsartan 24-26 Mg Tablet) 4 each PO BID [facility] Last Admin: 08/10/23 09:19 Dose: 4 each Tramadol HCl (Tramadol 50 Mg Tablet) 50 mg PO Q4H PRN PRN Reason: Pain Trazodone HCl (Trazodone 100 Mg Tablet) 100 mg PO BEDTIME [facility] Last Admin: 08/09/23 20:49 Dose: 100 mg Vitals/I&O/Wt Last Vital Signs Temp 97.8 F 08/10/23 07:48 Pulse 78 08/10/23 12:00 Resp 14 08/10/23 12:00 BP 104/63 08/10/23 12:00 Pulse Ox 95 08/10/23 12:00 O2 Del Method Nasal Cannula 08/10/23 12:00 O2 Flow Rate 3 08/10/23 12:00 08/09/23 08/10/23 08/10/23 22:59 06:59 14:59 Intake Total 680 / 980 170 / 1150 860 / 860 Output Total 500 / 1950 800 / 2750 350 / 350 Balance 180 / -970 -630 / -1600 510 / 510 Weight last 48 hrs Weight 96.207 kg Weight 94.166 kg Weight 93.939 kg Weight 72.575 kg Physical Exam Const: COMMON NORMALS: patient oriented x3 and alert GENERAL APPEARANCE: cooperative ORIENTATION/CONSCIOUSNESS: Yes awake HENMT: COMMON NORMALS: oropharynx normal Neck/C-Spine: COMMON NORMALS: no JVD Resp: COMMON NORMALS: normal respiratory effort and clear to auscultation bilaterally AUSCULTATION: clear to auscultation bilaterally Cardio: COMMON NORMALS: no JVD, regular rhythm, S1 normal heart sound present, S2 normal heart sound present and No murmurs present (Cardio) RHYTHM: regular rhythm HEART SOUNDS: S1 normal heart sound present and S2 normal heart sound present GI: COMMON NORMALS: Normal to inspection, nondistended, normoactive bowel sounds present, Soft to palpation and non-tender PALPATION: Yes Soft to palpation Extremity: COMMON NORMALS: no joint enlargement and no pedal edema Neuro: COMMON NORMALS: patient oriented x3 and moves all extremities SENSORIUM/ORIENTATION: Yes alert Skin: COMMON NORMALS: no rashes or lesions noted GENERAL SKIN EXAM: no rashes or lesions noted Urinary Catheter Management: Mckenzie: Cath Placed During This Visit: yes, but has since been removed by the nurse Reason for Continuing Indwelling Catheter: Acute Urinary Retention or Obstruction Urinary Catheter Date of Insertion: 08/09/23 Urinary Catheter Time of Insertion: 03:08 Date Urinary Catheter Removed: 08/09/23 Time Urinary Catheter Discontinued: 20:30 Data 08/10/23 03:35 08/10/23 03:35 Micro: Microbiology 08/09/23 02:47 Urine Culture - Preliminary Urine Catheterized A&P Assessment and plan (1) Implantable cardioverter-defibrillator (ICD) discharge: (2) Ventricular fibrillation: (3) Hypokalemia: (4) Hypomagnesemia: (5) UTI (urinary tract infection): (6) Urinary retention: Plan 77-year-old lady with past medical history as above presenting to the hospital with complaints of ICD discharge twice at home and once again in the hospital Amiodarone drip stopped. Switched to oral amiodarone 400 mg twice daily. Discussed with cardiology. With multiple recent ICD discharges, ventricular tachycardia runs, monitor on telemetry with switch to oral medication, if does well, consideration of possible discharge home tomorrow. Underwent coronary angiography without significant of coronary disease needing intervention. Reviewed vitals, CBC. CMP. Magnesium. Echocardiogram. Continue Lasix for CHF exacerbation. Potassium and magnesium okay. Recheck chemistry, magnesium. Echo with EF 40-45%. No significant change from prior. Last echocardiogram dates back to 2020 at which time her LVEF was noted to be 43% with diffuse hypokinesia of the septum and anterolateral wall. Urinary retention with 400 cc urine on bladder scan. Mckenzie placed for the same. Patient reports symptoms of dysuria and hesitancy over the past week. Noted to have low-grade fever. UA equivocal for UTI, 0-4 RBC, 0-4 WBC, 1+ bacteria. Negative nitrites. She has been having some cough, possibly responsible for her low-grade fever. Rapid COVID and influenza noted negative. Continue ceftriaxone empirically for now. Added Tesdavid Rueda. Follow-up blood culture. Lumbar radiculopathy: Improved. Pain radiating down the posterior left leg from left side lower back. Not a good candidate for NSAIDs at current time. Tylenol as needed. Added Capsaicin. Lidocaine patch considered, but allergy to adhesive. Attestations Medical Necessity Statement*: Continue admission for assessment management of recurrent ventricular tachycardia, ICD discharges, CHF exacerbation. and High MDM includes amount and/or complexity of data reviewed/ordered [ resulted lab(s)/test(s), ordered lab(s)/test(s) and other healthcare professional discussion] as documented Diagnoses Implantable cardioverter-defibrillator (ICD) discharge Z45.02 Ventricular fibrillation I49.01 Hypokalemia E87.6 Hypomagnesemia E83.42 UTI (urinary tract infection) N39.0 Urinary retention R33.9
[2023-08-10] MEDS: apixaban 5 mg Tablet PO (17:34)
[2023-08-10] MEDS: trazodone 100 mg Tablet PO (20:40)
[2023-08-10] MEDS: atorvastatin 40 mg Tablet 20 MG PO (20:40)
[2023-08-10] MEDS: ropinirole 1 mg Tablet 3 MG PO (20:40)
[2023-08-11] VITALS (7 sets, daily range): BP systolic 136–146; BP diastolic 74–87; PULSE 70–85; RESP 17–27; TEMP 36.9; O2SAT 87–98
[2023-08-11] MEDS: cefTRIAXone 1,000 MG in sodium chloride 0.9% (plus) 50 ML 100 MG IV (01:33)
[2023-08-11] MEDS: FUROsemide 10 mg/mL SDV 4mL 40 MG IVP (04:13)
[2023-08-11 05:45] LABS: Anion Gap 11.7 (5-19); Blood Urea Nitrogen 32 mg/dL (8-23); Calcium 9.5 mg/dL (8.5-10.5); Carbon Dioxide 30 mmol/L (22-29); Chloride 98 mmol/L (98-107); Glucose 108 mg/dL (65-115); Magnesium 1.9 mg/dL (1.7-2.3); Osmolality Calculated 289 mOsm/kg (285-295); Potassium 3.7 mmol/L (3.5-5.1); Sodium 136 mmol/L (136-145)
[2023-08-11] MEDS: albuterol 2.5 mg/3 mL Neb INHALATION (08:36)
[2023-08-11] MEDS: duloxetine 60 mg Capsule PO (08:47)
[2023-08-11] MEDS: pantoprazole DR 40 mg Tablet PO (08:47)
[2023-08-11] MEDS: apixaban 5 mg Tablet PO (08:47)
[2023-08-11] MEDS: amiodarone 200 mg Tablet 400 MG PO (08:48)
[2023-08-11] MEDS: gabapentin 400 mg Capsule PO ×2 (08:48→12:40)
[2023-08-11] MEDS: sacubitril/valsartan 24-26 mg Tablet 4 EACH PO (08:48)
[2023-08-11] MEDS: metoprolol tartrate 25 mg Tablet PO (08:53)
--- NOTE | 2023-08-11 13:19 | P.DS_ITS ---
Discharge Providers Date of Admission: 08/08/23 22:22 Date of Discharge: August 11, 2023 Attending Provider at Admission: Francesca Felder MD Attending Provider at Discharge: Manas Herman Primary Care Provider: Nat Wagner MD Diagnoses at Discharge Discharge Diagnosis (1) Implantable cardioverter-defibrillator (ICD) discharge: Status: Acute (2) Ventricular fibrillation: Status: Acute (3) Hypokalemia: Status: Acute (4) Hypomagnesemia: Status: Acute (5) UTI (urinary tract infection): Status: Acute (6) Urinary retention: Status: Acute Reason for Visit Reason for Visit: vertigo, weakness, CP Brief History: Meryl Baldwin is a 77 year old female with chronic atrial fibrillation on A/c, non-ischemic cardiomyopathy, hypertension, and COPD. She presents to the emergency room today due to her ICD firing. Patient states that she has been feeling unwell for about the last 10 to 14 days. She has had some flulike symptoms about 1 week ago, also had cellulitis of her lower extremity which for which she received a course of clindamycin. She is currently experiencing dysuria and feeling of incomplete evacuation of urine. She has had some low-grade fevers at home additionally. She states that because of all these above issues she has been feeling increasingly fatigued at home. She also has dyspnea on exertion which is worse than her recent baseline. Today she had 2 episodes of feeling dizzy and weak followed shortly afterwards by her ICD firing. An additional episode of V-fib was noted after patient was admitted to the [facility] for which patient felt her ICD fired. Currently her rhythm is a paced rhythm. She states that she has been feeling intermittent chest discomfort for which she received Nitropaste after ER arrival and appears to have relieved her symptoms. She denies any current cough or expectoration. States that her URI symptoms are also much improved compared to last week. She states that she had the flu, however she has not had any confirmatory testing for the same.Rapid COVID and flu antigens are negative today. Hospital Course Hospital Course She was started on amiodarone drip. During hospitalization also received treatment for CHF exacerbation with IV diuresis. Was assessed by cardiology, underwent coronary angiography which showed no obstructive lesions. She was monitored on telemetry, had no further ventricular tachycardia or ICD discharges. Transition to oral amiodarone 400 mg twice a day uneventfully, and will continue on higher than prior dose at 400 mg daily as per cardiology recommendation. She is feeling well, requested discharge home and is going with follow-up with cardiology. She had transient urinary retention, and transiently had Mckenzie catheter placed, however, this has resolved. Please reassess for any symptoms of urine retention. Received treatment for possible UTI in the hospital, her, urine culture without any growth and without symptoms, antibiotic discontinued. Additionally having lumbar radiculopathy but not a good candidate for NSAIDs, although symptoms improved with conservative management. Please reassess. Physical Exam Const: COMMON NORMALS: patient oriented x3 and alert GENERAL APPEARANCE: cooperative ORIENTATION/CONSCIOUSNESS: Yes awake HENMT: COMMON NORMALS: oropharynx normal Neck/C-Spine: COMMON NORMALS: no JVD Resp: COMMON NORMALS: normal respiratory effort and clear to auscultation bilaterally AUSCULTATION: clear to auscultation bilaterally Cardio: COMMON NORMALS: no JVD, regular rhythm, S1 normal heart sound present, S2 normal heart sound present and No murmurs present (Cardio) RHYTHM: regular rhythm HEART SOUNDS: S1 normal heart sound present and S2 normal heart sound present GI: COMMON NORMALS: Normal to inspection, nondistended, normoactive bowel sounds present, Soft to palpation and non-tender PALPATION: Yes Soft to palpation Extremity: COMMON NORMALS: no joint enlargement and no pedal edema Neuro: COMMON NORMALS: patient oriented x3 and moves all extremities SENSORIUM/ORIENTATION: Yes alert Skin: COMMON NORMALS: no rashes or lesions noted GENERAL SKIN EXAM: no rashes or lesions noted Urinary Catheter Management: Mckenzie: Cath Placed During This Visit: yes, but has since been removed by the nurse Reason for Continuing Indwelling Catheter: Acute Urinary Retention or Obstruction Urinary Catheter Date of Insertion: 08/09/23 Urinary Catheter Time of Insertion: 03:08 Date Urinary Catheter Removed: 08/09/23 Time Urinary Catheter Discontinued: 20:30 Discharge Data Studies Completed and Pending Completed Studies During Hospitalization Category Date Time Status RETAIL ADVISOR request for service Routine Exams 08/09/23 08:45 Completed XR chest 1V portable [id number] Stat Exams 08/08/23 19:43 Completed CV. echo complete* [id number] Routine Ultrasound 08/09/23 01:36 Completed Pending at discharge Category Date Time Status Basic Metabolic Panel AM LABS Lab 08/12/23 04:00 Ordered Basic Metabolic Panel AM LABS Lab 08/13/23 04:00 Ordered Blood Cultures ([facility]) Routine Lab 08/09/23 06:40 Received Blood Cultures ([facility]) Routine Lab 08/09/23 06:48 Received Radiology Impressions Chest X-Ray 08/08/23 19:43 IMPRESSION: 1. Dependent bibasilar atelectasis, less likely with component of consolidation. 2. Cardiac silhouette is mildly enlarged. Laboratory Results WBC 10.39 10^3/uL (3.29-11.43) 08/10/23 03:35 RBC 3.57 10^6/uL (3.85-5.65) L 08/10/23 03:35 Hgb 11.80 g/dL (11.27-16.99) 08/10/23 03:35 Hct 37.4 % (36-47) 08/10/23 03:35 MCV 104.8 fl (85-98) H 08/10/23 03:35 MCH 33.1 pg (27-33) H 08/10/23 03:35 MCHC 31.6 g/dL (30-55) 08/10/23 03:35 RDW 13.8 % (12.1-15.1) 08/10/23 03:35 Plt Count 174 10^3/cmm (157-399) 08/10/23 03:35 MPV 9.6 fL (7.4-10.4) 08/10/23 03:35 Neut % (Auto) 88.8 % 08/10/23 03:35 Lymph % (Auto) 8.6 % 08/10/23 03:35 [place] % (Auto) 2.1 % 08/10/23 03:35 Eos % (Auto) 0.0 % 08/10/23 03:35 Baso % (Auto) 0.1 % 08/10/23 03:35 Neut # (Auto) 9.23 10^3/uL (1.8-7.7) H 08/10/23 03:35 Lymph # (Auto) 0.9 10^3/uL (0.8-4.8) 08/10/23 03:35 [place] # (Auto) 0.2 10^3/uL (0.2-0.9) 08/10/23 03:35 Eos # (Auto) 0.0 10^3/uL (0.0-0.8) 08/10/23 03:35 Baso # (Auto) 0.0 10^3/uL (0.0-0.1) 08/10/23 03:35 Nucleated RBC % (auto) 0 % 08/10/23 03:35 Nucleated RBCs # 0.0 /100WBC 08/10/23 03:35 PT 16.40 SECONDS (12.1-14.9) H 08/08/23 20:01 INR 1.27 (0.8-1.2) H 08/08/23 20:01 Sodium 136 mmol/L (136-145) 08/11/23 05:04 Potassium 3.7 mmol/L (3.5-5.1) 08/11/23 05:04 Chloride 98 mmol/L (98-107) 08/11/23 05:04 Carbon Dioxide 30 mmol/L (22-29) H 08/11/23 05:04 Anion Gap 11.7 (5-19) 08/11/23 05:04 BUN 32 mg/dL (8-23) H 08/11/23 05:04 Creatinine 1.0 mg/dL (0.5-0.9) H 08/11/23 05:04 GFR Calculation Not Reportable 08/11/23 05:04 Glucose 108 mg/dL (65-115) 08/11/23 05:04 Calculated Osmolality 289 mOsm/kg (285-295) 08/11/23 05:04 Calcium 9.5 mg/dL (8.5-10.5) 08/11/23 05:04 Magnesium 1.9 mg/dL (1.7-2.3) 08/11/23 05:04 Total Bilirubin 0.4 mg/dL (0.15-1.2) 08/10/23 03:35 AST 26 U/L (0-32) 08/10/23 03:35 ALT 17 U/L (0-33) 08/10/23 03:35 Alkaline Phosphatase 80 U/L (35-105) 08/10/23 03:35 Troponin T Baseline 25 ng/L (0-10) H 08/08/23 20:01 Troponin T 120 Minute 26.27 ng/L (0-10) H 08/08/23 21:30 Delta Troponin T 1.27 ABS# (0-10) 08/08/23 21:30 Troponin T Hi Sens 6Hr 29.62 ng/L (0-10) H 08/09/23 01:26 Troponin T Hi Sens 6Hr Delta 4.62 ng/L (0-12) 08/09/23 01:26 NT-Pro-B Natriuret Pep 42682 pg/mL (0-450) H 08/08/23 20:01 Total Protein 7.3 g/dL (6.6-8.7) 08/10/23 03:35 Albumin 3.6 g/dL (3.5-5.2) 08/10/23 03:35 Globulin 3.7 g/dL (1.3-4.6) 08/10/23 03:35 TSH 1.50 uIU/mL (0.27-4.20) 08/09/23 01:26 Urine Color [place] (Yellow) 08/09/23 02:47 Urine Appearance Sl hazy (CLEAR) A 08/09/23 02:47 Urine pH 5 (5-7) 08/09/23 02:47 Ur Specific [place] 1.010 (1.005-1.030) 08/09/23 02:47 Urine Protein Trace (Negative) 08/09/23 02:47 Urine Glucose (UA) Norm (Normal) 08/09/23 02:47 Urine Ketones 1+ (Negative) H 08/09/23 02:47 Urine Blood Neg (Negative) 08/09/23 02:47 Urine Nitrate Negative (Negative) 08/09/23 02:47 Urine Bilirubin 1+ (Negative) H 08/09/23 02:47 Urine Urobilinogen Norm mg/dL (Negative) 08/09/23 02:47 Ur Leukocyte Esterase Trace (Negative) H 08/09/23 02:47 Urine RBC 0-4 /hpf (0-2) H 08/09/23 02:47 Urine WBC 0-4 /hpf (0-5) H 08/09/23 02:47 Ur Squamous Epith Cells 0-4 /hpf (0-5) H 08/09/23 02:47 Amorphous Sediment Not Reportable 08/09/23 02:47 Urine Bacteria 1+ /hpf (NONE) H 08/09/23 02:47 Hyaline Casts 5-10 /lpf H 08/09/23 02:47 Influenza Type A Ag Negative (Negative) 08/08/23 20:26 Influenza Type B Ag Negative (Negative) 08/08/23 20:26 SARS-CoV-2 Ag (Rapid) negative (Negative) 08/08/23 20:26 Vitals Last Vital Signs Temp 98.5 F 08/11/23 08:00 Pulse 85 08/11/23 12:00 Resp 27 H 08/11/23 12:00 BP 141/87 08/11/23 12:00 Pulse Ox 98 08/11/23 12:00 O2 Del Method Room Air 08/11/23 12:00 O2 Flow Rate 3 08/11/23 11:35 Discharge Plan Discharge Patient Disposition: Home Condition: Stable Prescriptions: Continued lovastatin 10 mg tablet 10 mg PO BEDTIME amlodipine [Norvasc] 2.5 mg tablet 2.5 mg PO QAM pantoprazole [Protonix] 40 mg tablet,delayed release (DR/EC) 40 mg PO QAM Eliquis 5 mg tablet 5 mg PO BID Hold Instructions: Resume on 07/04/22. May start taking the medicine tomorrow morning multivitamin Tablet 1 tab PO DAILY calcium carbonate-vitamin D3 600 mg-10 mcg (400 unit) capsule 1 cap PO DAILY fluticasone propion-salmeterol [Advair Diskus] 250-50 mcg/dose blister with device 1 inh inhalation Q12H diphenhydramine HCl [Benadryl] 25 mg capsule 25 mg PO TID PRN (Reason: Insomnia) diclofenac sodium 1 % gel 2 - 4 g topical QID PRN (Reason: Pain) Qty: 100 3RF gabapentin 400 mg capsule 400 mg PO QID Qty: 120 3RF trazodone 100 mg tablet 100 mg PO BEDTIME Qty: 30 3RF meclizine 25 mg tablet 25 mg PO TID PRN (Reason: dizziness) Qty: 30 3RF ergocalciferol (vitamin D2) 1,250 mcg (50,000 unit) capsule 1,250 mcg PO .weekly Qty: 12 2RF furosemide 80 mg tablet 80 mg PO QAM Qty: 30 2RF hydroxyzine pamoate [Vistaril] 25 mg capsule 25 mg PO Q8H PRN (Reason: Panic Attack(S)) Qty: 90 1RF fluticasone propionate [Flonase Allergy Relief] 50 mcg/actuation spray,suspension 2 spray INTRANASAL QAM Qty: 16 0RF montelukast 10 mg tablet 10 mg PO DAILY Vitamin B-12 2 tab PO QAM albuterol sulfate 90 mcg/actuation HFA aerosol inhaler 2 inh INHALATION Q4H PRN (Reason: shortness of breath or wheezing) Qty: 18 0RF duloxetine 60 mg capsule,delayed release(DR/EC) 60 mg PO BID Rx Instructions: TAKE ONE CAPSULE BY MOUTH TWICE DAILY hydrocodone-acetaminophen 5-325 mg tablet 1 tab PO Q4H PRN (Reason: Pain) Rx Instructions: TAKE ONE TABLET BY MOUTH EVERY 4 HOURS NEEDED FOR pain. DO not exceed FOUR TABLETS in 24 hours. hold WITHIN FOUR hours of planned SLEEP. tramadol 50 mg tablet 50 mg PO Q4H PRN (Reason: Pain) buspirone 7.5 mg tablet 7.5 mg PO TID ropinirole 3 mg tablet 3 mg PO BEDTIME Entresto 97-103 mg tablet 1 tab PO BID torsemide 20 mg tablet 40 mg PO DAILY potassium chloride 10 mEq capsule, extended release 10 meq PO DAILY Rx Instructions: TAKE ONE CAPSULE BY MOUTH DAILY Changed amiodarone 200 mg tablet 400 mg PO QAM Qty: 60 0RF Discharge Orders: Discharge Order (Routine); Ordered 08/11/23 Ordered By: Manas Herman Referrals: Mica Oreilly FNP [Nurse Practitioner] - 08/17/23 11:00 am Nat Wagner MD [Primary Care Provider] - 08/18/23 10:40 am Discharge Diet: Cardiac Patient Instructions: Heart Failure (DC), Heart Catheterization (DC), CHF Stoplight, Opioid Safety, Post Angiogram Home Care Instructions, Pain Management Discharge Attestations Time Spent in Discharge Care*: greater than 30 min Quality Metrics Clinical Quality Measures [ No reported AMI, CVA or VTE this stay] Coding Level of Care Code 48235 Total time (in minutes) for Discharge: 45 Diagnoses Implantable cardioverter-defibrillator (ICD) discharge Z45.02 Ventricular fibrillation I49.01 Hypokalemia E87.6 Hypomagnesemia E83.42 UTI (urinary tract infection) N39.0 Urinary retention R33.9
--- NOTE | 2023-08-11 17:40 | P.PN_ITS ---
Subjective 2 Subjective: Patient is feeling okay. Has not had a recurrence of ventricular tachycardia. Tolerating the amiodarone so far well. Medications: Medication Review Details: Amiodarone 400 mg p.o. twice daily in addition to the current medications Vitals/I&O/Wt Last Vital Signs Temp 98.5 F 08/11/23 08:00 Pulse 85 08/11/23 14:09 Resp 27 H 08/11/23 14:09 BP 141/87 08/11/23 14:09 Pulse Ox 98 08/11/23 14:09 O2 Del Method Room Air 08/11/23 12:00 O2 Flow Rate 3 08/11/23 11:35 08/11/23 08/11/23 08/11/23 06:59 14:59 22:59 Intake Total 50 / 1560 360 / 360 Output Total 350 / 1225 Balance -300 / 335 360 / 360 Weight last 48 hrs Weight 215 lb 12.8 oz Weight 212 lb 1.6 oz Physical Exam 2 Narrative: GENERAL: The patient is alert and oriented times three. Not in any acute distress. HEENT: No significant pallor, icterus or lymphadenopathy.Oral cavity: There are no mucous membrane lesions. NECK: Trachea appears to be central. No masses noted. No JVD or thyromegaly appreciated. RESPIRATORY: Chest is symmetrical. No intercostals muscle retraction or any accessory muscle activation. There is no chest wall tenderness. Breath sounds are heard bilaterally. No rales or rhonchi heard. No evidence of any consolidation. BREASTS: Deferred. HEART: The heart sounds are normal. No S3 or S4. Short systolic murmur in the lower sternal border. No diastolic murmurs.. No pericardial rub ABDOMEN: No vessel pulsations or distention. No tenderness. No organomegaly appreciated. Bowel sounds are normally heard. : Deferred. RECTAL: Deferred. LYMPHATIC: No lymphadenopathy noted in the neck. EXTREMITIES: No edema or cyanosis. No clubbing. MUSCULOSKELETAL: No acute joint deformities or swelling SKIN: There are no significant rashes or ecchymosis NEUROPSYCHIATRIC: The patient is alert and oriented x3. Appears to be in a good mood. No tremors or rigidity noted. Urinary Catheter Management: Mckenzie: Cath Placed During This Visit: yes, but has since been removed by the nurse Reason for Continuing Indwelling Catheter: Acute Urinary Retention or Obstruction Urinary Catheter Date of Insertion: 08/09/23 Urinary Catheter Time of Insertion: 03:08 Date Urinary Catheter Removed: 08/09/23 Time Urinary Catheter Discontinued: 20:30 Data 08/10/23 03:35 08/11/23 05:04 Micro: Microbiology 08/09/23 02:47 Urine Culture - Final Urine Catheterized A&P Assessment and plan (1) Chest pain: Most likely related to the ventricular arrhythmia. She may be continue on the amiodarone and the other current medications. Qualifiers: Chest pain type: unspecified Qualified Code(s): R07.9 - Chest pain, unspecified (2) Implantable cardioverter-defibrillator (ICD) discharge: The ICD function appears to be appropriate. May continue on the current management. (3) Ventricular tachycardia: Patient was started on amiodarone 400 mg p.o. twice daily. We may continue this for 10 days followed by 400 mg daily. Will keep on the 400 milligrams daily dose because of the ventricular tachycardia. (4) Non-ischemic cardiomyopathy: Patient is on the Entresto. This may be continued. (5) Chronic atrial fibrillation: Continue with the Eliquis Plan If the patient continues remain stable, may be discharged home today She will be seen back in the clinic in 2 weeks by the nurse practitioner. I may see her in the office as scheduled Attestations 2 Medical Necessity Statement*: Disposition as per the primary Coding Level of Care Code 41447 Diagnoses Chest pain R07.9 Chest pain type: unspecified Implantable cardioverter-defibrillator (ICD) discharge Z45.02 Ventricular tachycardia I47.20 Non-ischemic cardiomyopathy I42.8 Chronic atrial fibrillation I48.20
== END 2023-08-11 15:02 | disposition home or self-care (01) ==
LOC: ER 22:00 → CSU 22:37
PROVIDERS: Internal Medicine; Admitting Provider Student in an Organized Health Care Education/Training Program; Emergency Provider Emergency Medicine; PCP Family Medicine; Visit Provider Internal Medicine
DX: Z45.02 Encounter for adjustment and management of automatic implantable cardiac defibrillator (principal); I49.01 Ventricular fibrillation; E87.6 Hypokalemia; E83.42 Hypomagnesemia; N39.0 Urinary tract infection, site not specified; R33.9 Retention of urine, unspecified; I42.8 Other cardiomyopathies; J44.9 Chronic obstructive pulmonary disease, unspecified; I11.0 Hypertensive heart disease with heart failure; I50.9 Heart failure, unspecified; M54.16 Radiculopathy, lumbar region; G47.33 Obstructive sleep apnea (adult) (pediatric); M19.90 Unspecified osteoarthritis, unspecified site; Z87.891 Personal history of nicotine dependence; I08.3 Combined rheumatic disorders of mitral, aortic and tricuspid valves; Z79.01 Long term (current) use of anticoagulants
CPT/HCPCS: 36415; 51702; 71045; 80048; 80053; 81001; 81015; 83735; 83880; 84443; 84484; 85025; 85610; 87040; 87086; 87426; 87804; 93005; 93306; 93454; 94640; 94760; 96365; 96376; 99152; 99153; 99285; A4222; C1769; C1887; C1894; G0378; J0283; J0696; J1200; J1644; J1940; J2250; J2930; J3010; J3475; J3490; J7030; J7613; Q9967

== ENCOUNTER → 2023-09-09 17:04 | Outpatient (BNVA) | payer MEDICAID, SELFPAY | PROVIDERS: PCP Family Medicine | DX: Z45.02 Encounter for adjustment and management of automatic implantable cardiac defibrillator (principal) | CPT/HCPCS: 93296 ==

== ENCOUNTER → 2023-10-23 10:00 | Outpatient (BNVA) | payer MEDICAID, SELFPAY | PROVIDERS: PCP Family Medicine; Visit Provider Internal Medicine Cardiovascular Disease | DX: Z53.9 Procedure and treatment not carried out, unspecified reason (principal) | CPT/HCPCS: 93279 ==

== ENCOUNTER → 2023-12-24 13:06 | Outpatient (BNVA) | payer MEDICARE, MEDICAID, SELFPAY | PROVIDERS: PCP Family Medicine; Visit Provider Family Medicine | DX: I10 Essential (primary) hypertension (principal); E78.5 Hyperlipidemia, unspecified; F41.9 Anxiety disorder, unspecified; B37.9 Candidiasis, unspecified; G89.29 Other chronic pain; J44.9 Chronic obstructive pulmonary disease, unspecified; F41.8 Other specified anxiety disorders; Z79.899 Other long term (current) drug therapy | CPT/HCPCS: 80053; 80061; 84443; 85025 ==

== ENCOUNTER → 2024-02-03 09:22 | Outpatient (BNVA) | payer MEDICARE, MEDICAID, SELFPAY | PROVIDERS: PCP Family Medicine; Visit Provider Internal Medicine Cardiovascular Disease | DX: Z45.02 Encounter for adjustment and management of automatic implantable cardiac defibrillator (principal) | CPT/HCPCS: 93296 ==

== ENCOUNTER → 2024-07-06 10:59 | Outpatient (BNVA) | payer MEDICARE, MEDICAID, SELFPAY | PROVIDERS: PCP Family Medicine; Visit Provider Internal Medicine Cardiovascular Disease | DX: Z45.02 Encounter for adjustment and management of automatic implantable cardiac defibrillator (principal) | CPT/HCPCS: 93296 ==

== ENCOUNTER → 2025-02-23 09:35 | Outpatient (BNVA) | payer MEDICARE, MEDICAID, SELFPAY | PROVIDERS: PCP Family Medicine; Visit Provider Internal Medicine | DX: Z45.02 Encounter for adjustment and management of automatic implantable cardiac defibrillator (principal) | CPT/HCPCS: 93296 ==